=== PATIENT | female | born 1955 | race Caucasian/White ===

== ENCOUNTER 2017-03-29 03:11 | Inpatient (IN) | payer MEDICARE, MEDICAID ==
[~2017-03-29] VITALS: Ht 160 cm; Wt 53.1 kg
[2017-03-29] VITALS (7 sets, daily range): BP systolic 90–114; BP diastolic 53–58
[2017-03-29 03:40] LABS: BASO % 0 % (0-3); EOS % 0 % (0-3); HEMOGLOBIN 12.5 g/dL (12.0-15.5); LYMPH # 0.9 x10^3/uL (1.0-4.8); LYMPH % 5 % (24-48); MEAN CORPUSCULAR HEMOGLOBIN 29 pg (25-35); MEAN CORPUSCULAR HGB CONC 32 g/dL (31-37); MEAN CORPUSCULAR VOLUME 91 fL (79-100); MONO % 5 % (0-9); NEUT % 90 % (31-73); PLATELET COUNT 285 x10^3/uL (140-400); RED CELL DISTRIBUTION WIDTH 13.3 % (11.5-14.5)
--- NOTE | 2017-03-29 03:40 | PHYS DOC ---
Adult General Chief Complaint Chief Complaint: UPPER EXTREMITY PAIN HPI HPI Patient is a 61 year old female who presents with complaint of left-sided pain. Patient states her symptoms started last evening and progressively worsened through the night. Patient awoke with severe pain and difficulty breathing. Patient called EMS who arrived at the patient's residence and treated the patient initially with intranasal fentanyl which she stated reduced her pain. Patient denies productive cough. Patient denies any injury to the affected area. Patient states her pain extends from her left shoulder along the left side of her chest down towards her left hip. Patient currently rates her pain as 7 out of 10. Patient has history of COPD and is dependent on supplemental oxygen which she runs at 3 L/m per nasal cannula. Patient has had nausea. Patient states that her pain worsens when she takes deep breath and when she moves her left upper extremity. Review of Systems Review of Systems Constitutional: Fever, chills [] Eyes: Denies change in visual acuity, redness, or eye pain [] HENT: Denies nasal congestion or sore throat [] Respiratory: Shortness of breath [] Cardiovascular: Chest pain [] GI: Nausea, denies abdominal pain, bloody stools or diarrhea [] : Denies dysuria or hematuria [] Musculoskeletal: Denies back pain or joint pain [] Integument: Denies rash or skin lesions [] Neurologic: Denies headache, focal weakness or sensory changes [] Endocrine: Denies polyuria or polydipsia [] Current Medications Current Medications Current Medications Medications (Trade) Dose Ordered Sig/Valeria Start Time Stop Time Status Last Admin Dose Admin Fentanyl Citrate (Fentanyl 2ml Vial) 50 mcg PRN Q15MIN PRN 03/29/17 03:45 03/30/17 03:44 03/29/17 04:31 50 MCG Ondansetron HCl (Zofran) 4 mg 1X ONCE 03/29/17 03:45 03/29/17 03:46 DC 03/29/17 03:56 4 MG Sodium Chloride 1,000 ml @ 675 mls/hr Q1H29M 03/29/17 03:45 03/29/17 05:44 03/29/17 03:54 675 MLS/HR Allergies Allergies Allergies Coded Allergies Type Severity Reaction Last Updated Verified No Known Drug Allergies 03/29/17 No Physical Exam Physical Exam Constitutional: Alert, febrile, appears ill. [] HENT: Normocephalic, atraumatic, bilateral external ears normal, oropharynx dry , no oral exudates, nose normal. [] Eyes: PERRLA, EOMI, conjunctiva normal, no discharge. [] Neck: Normal range of motion, no tenderness, supple, no stridor. [] Cardiovascular: Tachycardia, regular rhythm, no murmur [] Lungs & Thorax: Mildly restricted air movement bilaterally, no wheezes, no rales [] Abdomen: Bowel sounds normal, soft, no tenderness, no masses, no pulsatile masses. [] Skin: Warm, dry, no erythema, no rash. [] Back: No tenderness, no CVA tenderness. [] Extremities: No tenderness, no cyanosis, no clubbing, ROM intact, no edema. [] Neurologic: Alert and oriented X 3, normal motor function, normal sensory function, no focal deficits noted. [] Current Patient Data Vital Signs Vital Signs Date Time Temp Pulse Resp B/P (MAP) Pulse Ox O2 Delivery O2 Flow Rate FiO2 03/29/17 04:00 16 94 Nasal Cannula 2.0 03/29/17 03:22 100.6 100 98/54 (69) 100.6 Lab Values Laboratory Tests Test 03/29/17 03:28 White Blood Count 18.0 x10^3/uL (4.0-11.0) H Red Blood Count 4.30 x10^6/uL (3.50-5.40) Hemoglobin 12.5 g/dL (12.0-15.5) Hematocrit 39.0 % (36.0-47.0) Mean Corpuscular Volume 91 fL (79-100) Mean Corpuscular Hemoglobin 29 pg (25-35) Mean Corpuscular Hemoglobin Concent 32 g/dL (31-37) Red Cell Distribution Width 13.3 % (11.5-14.5) Platelet Count 285 x10^3/uL (140-400) Neutrophils (%) (Auto) 90 % (31-73) H Lymphocytes (%) (Auto) 5 % (24-48) L Monocytes (%) (Auto) 5 % (0-9) Eosinophils (%) (Auto) 0 % (0-3) Basophils (%) (Auto) 0 % (0-3) Neutrophils # (Auto) 16.1 x10^3uL (1.8-7.7) H Lymphocytes # (Auto) 0.9 x10^3/uL (1.0-4.8) L Monocytes # (Auto) 0.8 x10^3/uL (0.0-1.1) Eosinophils # (Auto) 0.1 x10^3/uL (0.0-0.7) Basophils # (Auto) 0.0 x10^3/uL (0.0-0.2) Platelet Estimate Pending Sodium Level 141 mmol/L (136-145) Potassium Level 4.2 mmol/L (3.5-5.1) Chloride Level 103 mmol/L (98-107) Carbon Dioxide Level 27 mmol/L (21-32) Anion Gap 11 (6-14) Blood Urea Nitrogen 13 mg/dL (7-20) Creatinine 0.6 mg/dL (0.6-1.0) Estimated GFR (Cockcroft-Gault) 102.3 BUN/Creatinine Ratio 22 (6-20) H Glucose Level 143 mg/dL (70-99) H Lactic Acid Level 1.2 mmol/L (0.4-2.0) Calcium Level 8.7 mg/dL (8.5-10.1) Total Bilirubin 0.6 mg/dL (0.2-1.0) Aspartate Amino Transferase (AST) 20 U/L (15-37) Alanine Aminotransferase (ALT) 20 U/L (14-59) Alkaline Phosphatase 56 U/L (46-116) Creatine Kinase 69 U/L (26-192) Creatine Kinase MB (Mass) 0.6 ng/mL (0.0-3.6) Creatine Kinase MB Relative Index 0.9 % (0-4) Troponin I Quantitative < 0.017 ng/mL (0.000-0.055) Total Protein 6.6 g/dL (6.4-8.2) Albumin 3.3 g/dL (3.4-5.0) L Albumin/Globulin Ratio 1.0 (1.0-1.7) Laboratory Tests 03/29/17 03:28 Laboratory Tests 03/29/17 03:28 EKG EKG Interpreted by me: Heart rate 108, sinus tachycardia, normal intervals, normal axis, no acute ST/T-wave abnormalities present [] Radiology/Procedures Radiology/Procedures One view AP chest x-ray interpreted by me: Left lower lobe consolidation, left lower lobe infiltrate, no effusions [] Course & Med Decision Making Course & Med Decision Making Pertinent Labs and Imaging studies reviewed. (See chart for details) Patient's chest x-ray showed findings consistent with acute pneumonia. The patient is febrile with tachycardia, thus patient meets diagnosis of early sepsis. Patient started on IV fluids. Patient also started on IV Levaquin. Patient will require admission to the hospital for further treatment. Patient admitted to Dr. Ashraf. Faviola Disclaimer Faviola Disclaimer This electronic medical record was generated, in whole or in part, using a voice recognition dictation system. Departure Departure Impression: Primary Impression: Community acquired pneumonia Additional Impressions: Sepsis COPD (chronic obstructive pulmonary disease) Disposition: ADMITTED INPATIENT Admitting Physician: Chris Ashraf Condition: GUARDED Referrals: NO PCP (PCP) Problem Qualifiers Additional Impressions: Sepsis Sepsis type: sepsis due to unspecified organism Qualified Codes: A41.9 - Sepsis, unspecified organism COPD (chronic obstructive pulmonary disease) COPD type: COPD with acute exacerbation Qualified Codes: J44.1 - Chronic obstructive pulmonary disease with (acute) exacerbation SANJAY JEAN MD March 29, 2017 03:40
[2017-03-29] MEDS ORDERED: ONDANSETRON PF 4 MG/2 ML VIAL. IV ONE (03:45)
[2017-03-29] MEDS: IV NORMAL SALINE 1000ML BAG 1,000 ML IV SCH ×4 (03:54→14:54)
[2017-03-29 03:59] LABS: CALCIUM 8.7 mg/dL (8.5-10.1); CREATININE 0.6 mg/dL (0.6-1.0); GFR 102.3; POTASSIUM 4.2 mmol/L (3.5-5.1)
[2017-03-29] MEDS: fentaNYL PF VIAL 100 MCG/2 ML VIAL IV PRN ×4 (04:00→11:22)
[2017-03-29 04:05] LABS: ALBUMIN 3.3 g/dL (3.4-5.0); TOTAL BILIRUBIN 0.6 mg/dL (0.2-1.0); TOTAL PROTEIN 6.6 g/dL (6.4-8.2)
[2017-03-29 04:11] LABS: CKMB MASS 0.6 ng/mL (0.0-3.6)
[2017-03-29 04:40] LABS: % EOS 1 % (0-5); PLT ESTIMATE ADEQUATE (ADEQUATE)
[2017-03-29] MEDS ORDERED: ACETAMINOPHEN 325 MG TABLET. PO PRN (04:45)
[2017-03-29] MEDS ORDERED: ONDANSETRON PF 4 MG/2 ML VIAL. IV PRN ×2 (05:00→09:15)
[2017-03-29] MEDS ORDERED: levOFLOXacin PER PHARMACY. MC PRN (05:00)
[2017-03-29] MEDS ORDERED: ALPR0.5T6 PO (06:30)
[2017-03-29] MEDS ORDERED: UMEC62.5 IH (06:30)
[2017-03-29] MEDS ORDERED: FLUT1DIS5 IH (06:30)
[2017-03-29] MEDS ORDERED: IPRA4AER IH (06:30)
[2017-03-29] MEDS ORDERED: ASPI-482 PO (06:30)
[2017-03-29] MEDS ORDERED: ALEN70TA3 PO (06:30)
--- NOTE | 2017-03-29 06:32 | EKG ---
[facility] [address] [place] [address] Test Date: 2017-03-29 Test Time: 03:20:43 Pat Name: SMITH LOBO Department: Room: 248 1 Gender: F Vulcanizer: : 1955 Requested By: SANJAY JEAN Order Number: [id number] Reading MD: Chris Prado Measurements Intervals [place] Rate: 108 P: 92 OK: 182 QRS: 89 QRSD: 86 T: 63 QT: 310 QTc: 419 Interpretive Statements SINUS TACHYCARDIA ATRIAL PREMATURE COMPLEX(ES) Electronically Signed On 04-04-2017 13:27:19 CDT by Chris Prado
--- NOTE | 2017-03-29 07:12 | RAD ---
Portable chest, 03/29/2017: History: Left-sided shoulder pain No previous chest radiographs are available at this time for comparison purposes. The heart is not enlarged. Attenuation of the upper lobe pulmonary vessels suggests emphysema. There are scattered parenchymal scars. There are streaky parenchymal opacities projected over the right mid to upper chest suggesting parenchymal scarring versus pleural or chest wall calcifications. There is blunting of the left lateral costophrenic angle with prominent left basilar pulmonary markings. No right-sided pleural fluid is seen. IMPRESSION: 1. Emphysema with pleural/parenchymal scarring. 2. Blunting of the left lateral costophrenic angle suggesting a small amount of pleural fluid versus scarring with mild underlying left basilar parenchymal infiltrate or scarring.
[2017-03-29] MEDS ORDERED: IPRATRPIUM/ALBUTEROL 0.5/2.5MG 3 ML NEBU. NEB SCH (08:00)
[2017-03-29] MEDS ORDERED: IPRA0.2S5 NEB (08:43)
[2017-03-29] MEDS ORDERED: VENTOLIN HFA18 GM INH (08:43)
[2017-03-29] MEDS ORDERED: VERA240C2 PO (08:43)
--- NOTE | 2017-03-29 09:09 | PDOC1 ---
History and Physical Current Problem List Problem List Problems Medical Problems: (1) Community acquired pneumonia Status: Acute (2) COPD (chronic obstructive pulmonary disease) Status: Acute (3) Sepsis Status: Acute Current Medications Current Medications Current Medications Medications (Trade) Dose Ordered Sig/Valeria Start Time Stop Time Status Last Admin Dose Admin Acetaminophen (Tylenol) 650 mg PRN Q4HRS PRN 03/29/17 04:45 03/30/17 04:44 Albuterol/ Ipratropium (Duoneb) 3 ml RTQID 03/29/17 08:00 03/30/17 07:59 03/29/17 08:19 3 ML Fentanyl Citrate (Fentanyl 2ml Vial) 50 mcg PRN Q2HR PRN 03/29/17 05:00 03/30/17 04:59 03/29/17 08:07 50 MCG Iohexol (Omnipaque 240 Mg/ml) 50 ml 1X ONCE 03/29/17 09:15 03/29/17 09:16 UNV Iohexol (Omnipaque 300 Mg/ml) 75 ml 1X ONCE 03/29/17 09:15 03/29/17 09:16 UNV Levofloxacin/ Dextrose 100 ml @ 100 mls/hr Q24H 03/29/17 05:00 03/29/17 05:34 100 MLS/HR Levofloxacin/ Dextrose (Levaquin Per Pharmacy) 1 each PRN DAILY PRN 03/29/17 05:00 Ondansetron HCl (Zofran) 4 mg PRN Q8HRS PRN 03/29/17 05:00 03/30/17 04:59 Sodium Chloride 1,000 ml @ 125 mls/hr Q8H 03/29/17 05:00 03/30/17 04:59 03/29/17 05:35 125 MLS/HR Allergies Allergies Allergies Coded Allergies Type Severity Reaction Last Updated Verified No Known Drug Allergies 03/29/17 No ROS Review of System CONSTITUTIONAL: No fever or chills EYES: No recent changes SKIN: No rash or itching CARDIOVASCULAR: No chest pain, syncope, palpitations, or edema RESPIRATORY: No SOB or cough but chest pain, worse with breathing. GASTROINTESTINAL: No nausea, vomiting or but abdominal pain, vague NEUROLOGICAL: No headaches or weakness ENDOCRINE: No cold or heat intolerance GENITOURINARY: No urgency or frequency of urination MUSCULOSKELETAL: No back pain or joint pain LYMPHATICS: No enlarged lymph nodes PSYCHIATRIC: anxiety or no depression Physical Exam Physical Exam GEN.: No apparent distress. Alert and oriented. , thin built HEENT: Head is normocephalic, atraumatic NECK: Supple. LUNGS: decreased BS Bilateral HEART: RRR, S1, S2 present. Peripheral pulses intact ABDOMEN: Soft, nontender. Positive bowel sounds. EXTREMITIES: Without any cyanosis. NEUROLOGIC: Normal speech, normal tone PSYCHIATRIC: Normal affect, normal mood. SKIN: dry. Vitals Vitals Vital Signs Date Time Temp Pulse Resp B/P (MAP) Pulse Ox O2 Delivery O2 Flow Rate FiO2 03/29/17 08:22 95 Nasal Cannula 2.0 03/29/17 07:30 99.6 101 20 90/56 (67) 99.6 Labs Labs Laboratory Tests Test 03/29/17 03:28 03/29/17 05:36 White Blood Count 18.0 x10^3/uL (4.0-11.0) Red Blood Count 4.30 x10^6/uL (3.50-5.40) Hemoglobin 12.5 g/dL (12.0-15.5) Hematocrit 39.0 % (36.0-47.0) Mean Corpuscular Volume 91 fL (79-100) Mean Corpuscular Hemoglobin 29 pg (25-35) Mean Corpuscular Hemoglobin Concent 32 g/dL (31-37) Red Cell Distribution Width 13.3 % (11.5-14.5) Platelet Count 285 x10^3/uL (140-400) Neutrophils (%) (Auto) 90 % (31-73) Lymphocytes (%) (Auto) 5 % (24-48) Monocytes (%) (Auto) 5 % (0-9) Eosinophils (%) (Auto) 0 % (0-3) Basophils (%) (Auto) 0 % (0-3) Neutrophils # (Auto) 16.1 x10^3uL (1.8-7.7) Lymphocytes # (Auto) 0.9 x10^3/uL (1.0-4.8) Monocytes # (Auto) 0.8 x10^3/uL (0.0-1.1) Eosinophils # (Auto) 0.1 x10^3/uL (0.0-0.7) Basophils # (Auto) 0.0 x10^3/uL (0.0-0.2) Segmented Neutrophils % 89 % (35-66) Band Neutrophils % 1 % (0-9) Lymphocytes % 6 % (24-48) Monocytes % 3 % (0-10) Eosinophils % 1 % (0-5) Platelet Estimate Adequate (ADEQUATE) Sodium Level 141 mmol/L (136-145) Potassium Level 4.2 mmol/L (3.5-5.1) Chloride Level 103 mmol/L (98-107) Carbon Dioxide Level 27 mmol/L (21-32) Anion Gap 11 (6-14) Blood Urea Nitrogen 13 mg/dL (7-20) Creatinine 0.6 mg/dL (0.6-1.0) Estimated GFR (Cockcroft-Gault) 102.3 BUN/Creatinine Ratio 22 (6-20) Glucose Level 143 mg/dL (70-99) Lactic Acid Level 1.2 mmol/L (0.4-2.0) 1.4 mmol/L (0.4-2.0) Calcium Level 8.7 mg/dL (8.5-10.1) Total Bilirubin 0.6 mg/dL (0.2-1.0) Aspartate Amino Transf (AST/SGOT) 20 U/L (15-37) Alanine Aminotransferase (ALT/SGPT) 20 U/L (14-59) Alkaline Phosphatase 56 U/L (46-116) Creatine Kinase 69 U/L (26-192) Creatine Kinase MB (Mass) 0.6 ng/mL (0.0-3.6) Creatine Kinase MB Relative Index 0.9 % (0-4) Troponin I Quantitative < 0.017 ng/mL (0.000-0.055) Total Protein 6.6 g/dL (6.4-8.2) Albumin 3.3 g/dL (3.4-5.0) Albumin/Globulin Ratio 1.0 (1.0-1.7) Laboratory Tests Test 03/29/17 03:28 03/29/17 05:36 White Blood Count 18.0 x10^3/uL (4.0-11.0) Red Blood Count 4.30 x10^6/uL (3.50-5.40) Hemoglobin 12.5 g/dL (12.0-15.5) Hematocrit 39.0 % (36.0-47.0) Mean Corpuscular Volume 91 fL (79-100) Mean Corpuscular Hemoglobin 29 pg (25-35) Mean Corpuscular Hemoglobin Concent 32 g/dL (31-37) Red Cell Distribution Width 13.3 % (11.5-14.5) Platelet Count 285 x10^3/uL (140-400) Neutrophils (%) (Auto) 90 % (31-73) Lymphocytes (%) (Auto) 5 % (24-48) Monocytes (%) (Auto) 5 % (0-9) Eosinophils (%) (Auto) 0 % (0-3) Basophils (%) (Auto) 0 % (0-3) Neutrophils # (Auto) 16.1 x10^3uL (1.8-7.7) Lymphocytes # (Auto) 0.9 x10^3/uL (1.0-4.8) Monocytes # (Auto) 0.8 x10^3/uL (0.0-1.1) Eosinophils # (Auto) 0.1 x10^3/uL (0.0-0.7) Basophils # (Auto) 0.0 x10^3/uL (0.0-0.2) Segmented Neutrophils % 89 % (35-66) Band Neutrophils % 1 % (0-9) Lymphocytes % 6 % (24-48) Monocytes % 3 % (0-10) Eosinophils % 1 % (0-5) Platelet Estimate Adequate (ADEQUATE) Sodium Level 141 mmol/L (136-145) Potassium Level 4.2 mmol/L (3.5-5.1) Chloride Level 103 mmol/L (98-107) Carbon Dioxide Level 27 mmol/L (21-32) Anion Gap 11 (6-14) Blood Urea Nitrogen 13 mg/dL (7-20) Creatinine 0.6 mg/dL (0.6-1.0) Estimated GFR (Cockcroft-Gault) 102.3 BUN/Creatinine Ratio 22 (6-20) Glucose Level 143 mg/dL (70-99) Lactic Acid Level 1.2 mmol/L (0.4-2.0) 1.4 mmol/L (0.4-2.0) Calcium Level 8.7 mg/dL (8.5-10.1) Total Bilirubin 0.6 mg/dL (0.2-1.0) Aspartate Amino Transf (AST/SGOT) 20 U/L (15-37) Alanine Aminotransferase (ALT/SGPT) 20 U/L (14-59) Alkaline Phosphatase 56 U/L (46-116) Creatine Kinase 69 U/L (26-192) Creatine Kinase MB (Mass) 0.6 ng/mL (0.0-3.6) Creatine Kinase MB Relative Index 0.9 % (0-4) Troponin I Quantitative < 0.017 ng/mL (0.000-0.055) Total Protein 6.6 g/dL (6.4-8.2) Albumin 3.3 g/dL (3.4-5.0) Albumin/Globulin Ratio 1.0 (1.0-1.7) VTE Prophylaxis Ordered VTE Prophylaxis Devices: No VTE Pharmacological Prophylaxi: No LARY COTA MD March 29, 2017 09:09
[2017-03-29] MEDS ORDERED: IOHEXOL 300 MG/ML 75 ML VIAL IV ONE (09:15)
[2017-03-29] MEDS ORDERED: IOHEXOL 240 MG/ML 50ML VIAL. PO ONE (09:15)
[2017-03-29] MEDS ORDERED: ALBUTEROL SULFATE 2.5 MG/3 ML NEBU. NEB PRN (09:15)
[2017-03-29] MEDS ORDERED: hydrALAZINE 20 MG/ML VIAL. IVP PRN (09:15)
[2017-03-29] MEDS ORDERED: CONTRAST GIVEN MC PRN (09:15)
--- NOTE | 2017-03-29 10:21 | ACF ---
Admit Criteria Forms Admit Criteria Forms Admit Criteria Forms PNEUMONIA, COMMUNITY ACQUIRED Clinical Indications for Admission to Inpatient Care ( Place 'X' for any and all applicable criteria): Admission is indicated for ANY ONE of the following (1)(2)(3): [ ]I. Hypoxemia indicated by ANY ONE of the following: [ ]a) Oxygen saturation less than 90% while breathing room air [ ]b) PO2 less than 60 mm Hg (8.0 kPa) while breathing room air [ ]c) Chronic lung disease with significant deterioration from baseline oxygenation [x ]II. Appropriate diagnostic testing and treatment unavailable in outpatient or recovery facility (eg,testing or infection control measures unavailable(10) [ ]III. Moderate-risk or high-risk category patients (Pneumonia Severity Index (PSI) class IV or V, or CURB-65 score of 3 or greater). [ ]IV. Outpatient treatment failure as indicated by ANY ONE of the following(9) : [ ]a) Failure to respond to antibiotic (eg, resistant organism) [ ]b) Clinically significant adverse effects from medication (eg, vomiting) [ ]c) Complications of pneumonia (eg, empyema, bacteremia) [ ]d) Significant worsening of comorbid cond necessitating inpatient care (eg, chronic heart failure) [ ]V. Intermediate-risk category patients (eg, PSI class III or CURB-65 score 2) who do not improve with initial therapy and observation. [ ]. Immunocompromised patients (eg, AIDS, chronic steroid use) at moderate or high risk based on clinical evaluation. [ ]VII. Complicated pleural effusions (eg, exudative, loculated) [ ]VIII.Hemodynamic instability [ ] IX. Altered mental status that is severe or persistent. [ ]X. Dehydration that is severe or persistent. [ ]XI. Bacteremia [ ]XII. Respiratory finding (eg. tachypnea) that do not respond to outpatient or observation care treatment Extended stay beyond goal length of stay may be needed for (20) [ ]a) Unclear diagnosis [ ]b) Pleural disease [ ]c) Severe pneumonia or treatment failure (25 [ ]d) Respiratory failure (anticipate invasive or noninvasive ventilatory support) [ ]e) Abnormal serum electrolytes (serum Na concentration less than 135 mEq/L (mmol/L) (32)(33) [ ]f) Clinically significant comorbid illness (eg, heart failure, atrial fibrillation with rapid heart rate, alcohol withdrawal, renal insufficiency)(34)(35) [ ]g) Comorbid acute exacerbation of COPD(36) [ ]h) Concomitant diagnosis of malignancy that may be associated with malnutrition, immunologic impairment, or bronchial obstruction. [ ]i) Concomitant altered mental status [ ]j) Culture-identified Gram-negative or antibiotic-resistant organism (eg, Pseudomonas, methicillin-resistant Staphylococcus aureus)(30) [ ]k) Healthcare-associated pneumonia The original [facility] content created by [facility] app has been revised. The portions of the content which have been revised are identified through the use of italic text or in bold, and [employer] has neither reviewed nor approved the modified material. All other unmodified content is copyright [facility] [employer]. Please see references footnoted in the original [facility] edition 2016 CANDE SESAY March 29, 2017 10:21
[2017-03-29] MEDS ORDERED: IPRATRPIUM/ALBUTEROL 0.5/2.5MG 3 ML NEBU. NEB PRN (10:30)
--- NOTE | 2017-03-29 10:41 | PDOC2 ---
GI CONSULT Reason For Consult: Abd pain HPI: HPI: 61 y/o female who reports left-sided pain from her shoulder down her side to her hip began yesterday w/o precipitating events. Associated w/ worsening SOA. Brought to ER via EMS and admitted w/ CAP and early sepsis. Since yesterday, pain has moved to her abdomen - across the middle, maybe worse on left side. Constant, but worse w/ breathing. Never had pain like this before. Some nausea and dry-heaves. Denies heartburn/reflux, dysphagia, diarrhea, constipation, melena, hematochezia. Has lost ~5 pounds w/ decreased appetite recently. Takes ASA QD and did try Advil at her grandson's high school graduation last night. No previous EGD or colonoscopy. Tmax 100.6. Received breathing treatment, started on IV steroids and atbx. CT chest and abd ordered. Cardiology and pulmonology consults pending. PMH: PMH: HTN, COPD on home O2, anxiety, osteopenia, ?pneumothorax FH: Family History: No pertinent hx (denies GI cancers) Social History: Smoke: Quit ALCOHOL: none Drugs: None ROS: GEN: Denies fevers, chills, sweats HEENT: Denies blurred vision, sore throat CV: Denies chest pain RESP: +SOA GI: Per HPI : Denies hematuria, dysuria ENDO: +weight loss NEURO: Denies confusion, dizziness MSK: Denies weakness, joint pain/swelling SKIN: Denies jaundice, pruritus Vitals: Vitals: Vital Signs Date Time Temp Pulse Resp B/P (MAP) Pulse Ox O2 Delivery O2 Flow Rate FiO2 03/29/17 10:01 107 18 114/57 (76) 94 Nasal Cannula 2.0 03/29/17 07:30 99.6 99.6 Labs: Labs: Laboratory Tests Test 03/29/17 03:28 03/29/17 05:36 White Blood Count 18.0 x10^3/uL (4.0-11.0) Red Blood Count 4.30 x10^6/uL (3.50-5.40) Hemoglobin 12.5 g/dL (12.0-15.5) Hematocrit 39.0 % (36.0-47.0) Mean Corpuscular Volume 91 fL (79-100) Mean Corpuscular Hemoglobin 29 pg (25-35) Mean Corpuscular Hemoglobin Concent 32 g/dL (31-37) Red Cell Distribution Width 13.3 % (11.5-14.5) Platelet Count 285 x10^3/uL (140-400) Neutrophils (%) (Auto) 90 % (31-73) Lymphocytes (%) (Auto) 5 % (24-48) Monocytes (%) (Auto) 5 % (0-9) Eosinophils (%) (Auto) 0 % (0-3) Basophils (%) (Auto) 0 % (0-3) Neutrophils # (Auto) 16.1 x10^3uL (1.8-7.7) Lymphocytes # (Auto) 0.9 x10^3/uL (1.0-4.8) Monocytes # (Auto) 0.8 x10^3/uL (0.0-1.1) Eosinophils # (Auto) 0.1 x10^3/uL (0.0-0.7) Basophils # (Auto) 0.0 x10^3/uL (0.0-0.2) Segmented Neutrophils % 89 % (35-66) Band Neutrophils % 1 % (0-9) Lymphocytes % 6 % (24-48) Monocytes % 3 % (0-10) Eosinophils % 1 % (0-5) Platelet Estimate Adequate (ADEQUATE) D-Dimer (Renea) 0.51 ug/mlFEU (0.00-0.50) Sodium Level 141 mmol/L (136-145) Potassium Level 4.2 mmol/L (3.5-5.1) Chloride Level 103 mmol/L (98-107) Carbon Dioxide Level 27 mmol/L (21-32) Anion Gap 11 (6-14) Blood Urea Nitrogen 13 mg/dL (7-20) Creatinine 0.6 mg/dL (0.6-1.0) Estimated GFR (Cockcroft-Gault) 102.3 BUN/Creatinine Ratio 22 (6-20) Glucose Level 143 mg/dL (70-99) Lactic Acid Level 1.2 mmol/L (0.4-2.0) 1.4 mmol/L (0.4-2.0) Calcium Level 8.7 mg/dL (8.5-10.1) Total Bilirubin 0.6 mg/dL (0.2-1.0) Aspartate Amino Transf (AST/SGOT) 20 U/L (15-37) Alanine Aminotransferase (ALT/SGPT) 20 U/L (14-59) Alkaline Phosphatase 56 U/L (46-116) Creatine Kinase 69 U/L (26-192) Creatine Kinase MB (Mass) 0.6 ng/mL (0.0-3.6) Creatine Kinase MB Relative Index 0.9 % (0-4) Troponin I Quantitative < 0.017 ng/mL (0.000-0.055) Total Protein 6.6 g/dL (6.4-8.2) Albumin 3.3 g/dL (3.4-5.0) Albumin/Globulin Ratio 1.0 (1.0-1.7) Allergies: Coded Allergies: No Known Drug Allergies (Unverified , 03/29/17) Medications: Current Medications Medications (Trade) Dose Ordered Sig/Valeria Route PRN Reason Start Time Stop Time Status Last Admin Dose Admin Sodium Chloride 1,000 ml @ 675 mls/hr Q1H29M IV 03/29/17 03:45 03/29/17 05:44 DC 03/29/17 05:35 Fentanyl Citrate (Fentanyl 2ml Vial) 50 mcg PRN Q15MIN PRN IV PAIN GREATER THAN 3/10 03/29/17 03:45 03/30/17 03:44 03/29/17 04:31 Ondansetron HCl (Zofran) 4 mg 1X ONCE IV 03/29/17 03:45 03/29/17 03:46 DC 03/29/17 03:56 Fentanyl Citrate (Fentanyl 2ml Vial) 50 mcg PRN Q2HR PRN IV PAIN 03/29/17 05:00 03/30/17 04:59 03/29/17 08:07 Sodium Chloride 1,000 ml @ 125 mls/hr Q8H IV 03/29/17 05:00 03/30/17 04:59 03/29/17 05:35 Albuterol/ Ipratropium (Duoneb) 3 ml RTQID NEB 03/29/17 08:00 03/29/17 10:27 DC 03/29/17 08:19 Levofloxacin/ Dextrose 100 ml @ 100 mls/hr Q24H IV 03/29/17 05:00 03/29/17 05:34 Imaging: Imaging: CXR IMPRESSION: 1. Emphysema with pleural/parenchymal scarring. 2. Blunting of the left lateral costophrenic angle suggesting a small amount of pleural fluid versus scarring with mild underlying left basilar parenchymal infiltrate or scarring. PE: GEN: sitting on edge of bed, leaning forward, thin, looks uncomfortable HEENT: atraumatic LUNGS: tight/poor airflow, tachypneic HEART: tachycardic ABD: BS+, no increase in pain when abd palpated, soft EXTREMITY: no edema SKIN: no jaundice NEURO/PSYCH: A & O 3 A/P: A/P: Abd pain, nausea, retching -pain began w/ increased SOA yesterday, originally from left shoulder down axilla to left hip, now across abdomen -constant but worse w/ breathing Decreased appetite, weight loss SOA, h/o COPD on home O2 -D-dimer 0.51 CAP, fever, tachycardia CRC screen -no previous colonoscopy -- Await CT. Pulm and cardiology to see. Will review w/ Dr. Mantilla. LEANNA AYERS March 29, 2017 10:41
--- NOTE | 2017-03-29 11:00 | PDOC2 ---
HUNTER YODER DOG BARBER 03/29/17 1100: CARDIAC CONSULT DATE OF CONSULT Date of Consult DATE: 03/29/17 TIME: 10:52 REASON FOR CONSULT Reason for Consult: Chest pain REFERRING PHYSICIAN Referring Physician: Mechelle SOURCE Source: Chart review, Patient HISTORY OF PRESENT ILLNESS HISTORY OF PRESENT ILLNESS This is a 61 yo female admitted for complains of left sided chest pain and upper abdominal pain and SOA. Reports that yesterday while attending graduation she started having this sharp left rib cage pain that started under her left axilla the got isolated to her upper abdomen. Reports that she eventually went to sleep and woke up with only upper abdominal pain sharp in consistency and was nauseated. She also felt chills. In the last few weeks she also felt she is also a little more SOA and her tolerance with her activity has decreased compared to her baseline. Also complains of anorexia. Denies any palpitations, VTE, CAD in the past. She did have pneumonia a yr ago and has COPD utilizing 2LPM continuous at home. To add her abdominal pain is exacerbated by deep breathing and laying flat. More comfortable position is left side lying in position. No recent falls or any injury. Denies any PUD , hematemesis, black stools. PAST MEDICAL HISTORY Cardiovascular: HTN Pulmonary: COPD, Pneumonia, Other (pneumothorax) CENTRAL NERVOUS SYSTEM: Other (No pertinent history) GI: No pertinent hx Heme/Onc: No pertinent hx Hepatobiliary: No pertinent hx Psych: Anxiety Musculoskeletal: Osteoarthritis Rheumatologic: No pertinent hx Infectious disease: No pertinent hx Renal/: No pertinent hx Endocrine: Osteoporosis Dermatology: No pertinent hx PAST SURGICAL HISTORY Past Surgical History: Cataract Removal, Other (chest tube placement 2002) FAMILY HISTORY Family History: Coronary Artery Disease (father) SOCIAL HISTORY Smoke: No (quit 2 yrs ago 40 pk yr) ALCOHOL: none Drugs: None Lives: Alone CURRENT MEDICATIONS CURRENT MEDICATIONS Current Medications Medications (Trade) Dose Ordered Sig/Valeria Route PRN Reason Start Time Stop Time Status Last Admin Dose Admin Sodium Chloride 1,000 ml @ 675 mls/hr Q1H29M IV 03/29/17 03:45 03/29/17 05:44 DC 03/29/17 05:35 Fentanyl Citrate (Fentanyl 2ml Vial) 50 mcg PRN Q15MIN PRN IV PAIN GREATER THAN 3/10 03/29/17 03:45 03/30/17 03:44 03/29/17 04:31 Ondansetron HCl (Zofran) 4 mg 1X ONCE IV 03/29/17 03:45 03/29/17 03:46 DC 03/29/17 03:56 Fentanyl Citrate (Fentanyl 2ml Vial) 50 mcg PRN Q2HR PRN IV PAIN 03/29/17 05:00 03/30/17 04:59 03/29/17 08:07 Sodium Chloride 1,000 ml @ 125 mls/hr Q8H IV 03/29/17 05:00 03/30/17 04:59 03/29/17 05:35 Albuterol/ Ipratropium (Duoneb) 3 ml RTQID NEB 03/29/17 08:00 03/29/17 10:27 DC 03/29/17 08:19 Levofloxacin/ Dextrose 100 ml @ 100 mls/hr Q24H IV 03/29/17 05:00 03/29/17 05:34 Iohexol (Omnipaque 240 Mg/ml) 50 ml 1X ONCE PO 03/29/17 09:15 03/29/17 09:16 DC 03/29/17 09:15 Iohexol (Omnipaque 300 Mg/ml) 75 ml 1X ONCE IV 03/29/17 09:15 03/29/17 09:16 DC 03/29/17 09:15 ALLERGIES ALLERGIES: Coded Allergies: No Known Drug Allergies (Unverified , 03/29/17) ROS Review of System 14 point ROS evaluated with pertinent positives noted per HPI PHYSICAL EXAM General: Alert, Oriented X3, Cooperative, moderate distress HEENT: Atraumatic, Mucous membr. moist/pink Lungs: Other (diminished) Heart: Regular rate (SR), Normal S1, Normal S2, Other (distant heart sounds) Abdomen: Other (firm abdomen with tenderness upon palpation) Skin: No breakdown, No significant lesion Neuro: Normal speech, Sensation intact Psych/Mental Status: Other (in position) MUSCULOSKELETAL: Osteoarthritic changes both hands VITALS VITALS Vital Signs Date Time Temp Pulse Resp B/P (MAP) Pulse Ox O2 Delivery O2 Flow Rate FiO2 03/29/17 10:01 107 18 114/57 (76) 94 Nasal Cannula 2.0 03/29/17 07:30 99.6 99.6 LABS Lab: Laboratory Tests Test 03/29/17 03:28 03/29/17 05:36 White Blood Count 18.0 x10^3/uL (4.0-11.0) Red Blood Count 4.30 x10^6/uL (3.50-5.40) Hemoglobin 12.5 g/dL (12.0-15.5) Hematocrit 39.0 % (36.0-47.0) Mean Corpuscular Volume 91 fL (79-100) Mean Corpuscular Hemoglobin 29 pg (25-35) Mean Corpuscular Hemoglobin Concent 32 g/dL (31-37) Red Cell Distribution Width 13.3 % (11.5-14.5) Platelet Count 285 x10^3/uL (140-400) Neutrophils (%) (Auto) 90 % (31-73) Lymphocytes (%) (Auto) 5 % (24-48) Monocytes (%) (Auto) 5 % (0-9) Eosinophils (%) (Auto) 0 % (0-3) Basophils (%) (Auto) 0 % (0-3) Neutrophils # (Auto) 16.1 x10^3uL (1.8-7.7) Lymphocytes # (Auto) 0.9 x10^3/uL (1.0-4.8) Monocytes # (Auto) 0.8 x10^3/uL (0.0-1.1) Eosinophils # (Auto) 0.1 x10^3/uL (0.0-0.7) Basophils # (Auto) 0.0 x10^3/uL (0.0-0.2) Segmented Neutrophils % 89 % (35-66) Band Neutrophils % 1 % (0-9) Lymphocytes % 6 % (24-48) Monocytes % 3 % (0-10) Eosinophils % 1 % (0-5) Platelet Estimate Adequate (ADEQUATE) D-Dimer (Renea) 0.51 ug/mlFEU (0.00-0.50) Sodium Level 141 mmol/L (136-145) Potassium Level 4.2 mmol/L (3.5-5.1) Chloride Level 103 mmol/L (98-107) Carbon Dioxide Level 27 mmol/L (21-32) Anion Gap 11 (6-14) Blood Urea Nitrogen 13 mg/dL (7-20) Creatinine 0.6 mg/dL (0.6-1.0) Estimated GFR (Cockcroft-Gault) 102.3 BUN/Creatinine Ratio 22 (6-20) Glucose Level 143 mg/dL (70-99) Lactic Acid Level 1.2 mmol/L (0.4-2.0) 1.4 mmol/L (0.4-2.0) Calcium Level 8.7 mg/dL (8.5-10.1) Total Bilirubin 0.6 mg/dL (0.2-1.0) Aspartate Amino Transf (AST/SGOT) 20 U/L (15-37) Alanine Aminotransferase (ALT/SGPT) 20 U/L (14-59) Alkaline Phosphatase 56 U/L (46-116) Creatine Kinase 69 U/L (26-192) Creatine Kinase MB (Mass) 0.6 ng/mL (0.0-3.6) Creatine Kinase MB Relative Index 0.9 % (0-4) Troponin I Quantitative < 0.017 ng/mL (0.000-0.055) Total Protein 6.6 g/dL (6.4-8.2) Albumin 3.3 g/dL (3.4-5.0) Albumin/Globulin Ratio 1.0 (1.0-1.7) ASSESSMENT/PLAN ASSESSMENT/PLAN 1. Abdominal pain: exacerbated during supine and inspiration. Currently in position. 2. CAP 3. Atypical Chest pain: None currently. Mainly abdominal pain. initial troponin normal. EKG SR with RAEGAN no acute changes. Doubt ACS. likely pleuritic with GI component. 4. COPD 5. HTN: on low dose verapamil. controlled. 6. Ventral hernia?: 4 cm diameter soft mass right of midline. Defer to PCP Recommendations 1. Baseline TTE, will note PAP. 2. CT chest/abdomen pending 3. lipase and lipids. 4. Continue on verapamil 5. Follow pulmonary recommendations Problems: MELLISSA GEE MD 03/29/17 1326: CARDIAC CONSULT ALLERGIES ALLERGIES: Coded Allergies: No Known Drug Allergies (Unverified , 03/29/17) ASSESSMENT/PLAN ASSESSMENT/PLAN Patient seen and examined. Agree with ENGINEER STEAM's assessment and plan. Chest pain with atypical features and most probably pleuritic. Myocardial infarction ruled out. Check 2-D echo to assess left ventricle systolic function and rule out wall motion abnormalities. Continue treatment for pneumonia per primary team. Thank you for your consultation. Problems: HUNTER YODER APRN March 29, 2017 11:00 MELLISSA GEE MD March 29, 2017 13:26
--- NOTE | 2017-03-29 11:56 | PDOC ---
Provider Note Provider Note dictated severe CAP BS antibiotic AURORA OLIVER MD March 29, 2017 11:56
[2017-03-29] MEDS ORDERED: PIP/TAZO PER PHARMACY MC PRN (12:00)
[2017-03-29] MEDS ORDERED: IPRATROPIUM BROMIDE 0.5 MG/2.5 ML NEBU. NEB SCH (12:00)
[2017-03-29] MEDS ORDERED: VANCOMYCIN 1.25 GM in IV NORMAL SALINE 250ML 250 ML IV ONE (12:00)
[2017-03-29] MEDS: IPRATRPIUM/ALBUTEROL 0.5/2.5MG 3 ML NEBU. NEB SCH ×3 (12:13→19:08)
[2017-03-29 12:14] LABS: CHOLESTEROL/HDL RATIO 2.8
--- NOTE | 2017-03-29 12:29 | RAD ---
Examination: CT chest and abdomen with IV contrast History: History of abdominal pain, history of right lobectomy Comparison: None available Technique: Axial CT images of the chest and abdomen were performed with IV contrast. Coronal and sagittal reformats were performed. PQRS Compliance Statement: One or more of the following individualized dose reduction techniques were utilized for this examination: 1. Automated exposure control 2. Adjustment of the mA and/or kV according to patient size 3. Use of iterative reconstruction technique Findings: The visualized thyroid gland appears unremarkable. The central airways are patent. The heart size grossly appears unremarkable. Coronary artery calcifications identified. Mildly enlarged appearing pulmonary arteries and its branches probably due to pulmonary artery hypertension. Diffuse emphysematous changes identified in the bilateral lungs. There is a 4 mm nodule identified in the right upper lobe of the lung anteriorly. 2 Calcified pleural based densities identified in the right lower lobe of the lung probably old right hematoma or scarring changes. In the right lower lobe of the lung ,there is a irregular appearing opacity measuring 1.3 cm. There is irregular appearing opacity identified in the left upper lobe of the lung measuring 1 cm extending up to the pleura. Small left pleural effusion identified. There is a large left lung base consolidation changes identified with air bronchograms in the periphery of the lungs likely pneumonia or atelectasis. The visualized liver, spleen, adrenals grossly appears unremarkable. The gallbladder is moderately distended. Mild prominent or minimally dilated appearing common bile duct. The bilateral kidneys enhance symmetrically. Subcentimeter cyst identified in the left kidney. The stomach is mildly distended. The visualized pancreas grossly appears unremarkable. The visualized small bowel is nondilated. There is a moderate amount of stool noted in the partially visualized colon. Moderate aortic atherosclerosis. Mild degenerative changes identified in the visualized thoracolumbar spine. Impression: 1. Irregular opacities identified in the left upper lobe and in the right lower lobe of the lung with the largest measuring 1.3 cm in the right lower lobe of the lung could be neoplasm or scarring or atelectasis. Follow-up PET/CT scan may be useful. A 4 mm nodule identified in the right upper lobe of the lung. Follow-up per Fleischner Society guidelines. 2. Large left lower lobe lung consolidation in the periphery with some air bronchograms probably pneumonia or atelectasis. Small left pleural effusion. 3. Peripherally calcified pleural-based density identified in the right lower lobe of the lung could be chronic hematoma or scarring changes. 4. Bilateral lung emphysematous changes. 5. Coronary artery calcifications. 6. Moderate amount of stool identified in the partially visualized colon probably due to constipation. 7. Moderate distended gallbladder. The common bile duct measures 7.5 mm which is mildly prominent/dilated. Correlate with liver function tests.
--- NOTE | 2017-03-29 12:31 | CONS ---
DATE OF CONSULTATION: 03/29/2017 ATTENDING PHYSICIAN: Dr. Ashraf. REASON FOR CONSULTATION: Left-sided chest pain, abnormal chest x-ray. HISTORY OF PRESENT ILLNESS: The patient is a 61-year-old female who has 40 years of tobacco use. She quit a few years ago. She has oxygen-dependent chronic obstructive airway disease. She presented to the hospital complaining of left upper quadrant pain and also pain in the left lower chest. She did not have any significant cough, but she did have a fever of 100.6. Her chest x-ray revealed infiltrate in the left lower lobe. She underwent imaging studies, and I have just reviewed her CT of chest. It has not been read yet. The patient has extensive pneumonia involving the left lower lobe. The patient also has a focal calcified density in the right lower lobe which is probably from her talc pleurodesis which was performed in the past for pneumothorax. CT abdomen and pelvis is also being done, and I do not have the official report yet. There was no evidence of pulmonary embolism on the CT chest. Consultation is requested for further evaluation and management. She was started on Levaquin. PAST MEDICAL HISTORY: Significant for suspected severe COPD which has been oxygen dependent at 2-3 liters at home. PAST SURGICAL HISTORY: Include right thoracotomy for recurrent pneumothorax, and I assume that she had talc pleurodesis done at that time. 2. Osteopenia. 3. Anxiety disorder. REVIEW OF SYSTEMS: Twelve-point system was obtained. Pertinent positives discussed in my history of present illness, otherwise noncontributory. All systems that were negative were reviewed as well. ALLERGIES: None. CURRENT MEDICATIONS: Reviewed as listed in the [facility]. SOCIAL HISTORY: Smoker for 40 years, 2 packs per day, quit 2 years ago. PHYSICAL EXAMINATION: VITAL SIGNS: T-max of 100.6, blood pressure is stable. Pulse oximetry is 94% on 3 liters, latest blood pressure is 90 systolic. HEENT: Sclerae nonicteric. NECK: Supple. LUNGS: With diminished breath sounds bilaterally. CARDIOVASCULAR: Regular rate and rhythm. ABDOMEN: Soft, minimally tender in the left upper quadrant. EXTREMITIES: With no pitting edema. She has a thoracotomy scar on the right side. LABORATORY DATA: Reviewed. Sodium 141, potassium 4.2, BUN 13, and creatinine 0.6. D-dimer is 0.5. White cell count 18,000 and hemoglobin 12.5. IMPRESSION: 1. Dyspnea with cough secondary to extensive community-acquired left lower lobe pneumonia. 2. Chest pain, pleuritic type from extensive left lower lobe pneumonia. 3. 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 4. Abnormal CT chest with extensive pneumonia involving the left lower lobe and also mild patchy infiltrate in the right lower lobe consistent with pneumonia. she will need a follow up ct chest in 4-6 weeks.There was tiny pleural effusion. RECOMMENDATIONS: 1. We would broaden the antibiotic coverage to cover for anaerobic gram-negative and gram-positive organisms due to the severity of pneumonia. 2. Follow white cell count. 3. Follow sputum and blood cultures. 4. Follow the official CT abdomen and pelvis reported as well to rule out any abdominal pathology. repeat ct chest in 4-6 weeks 5. Taper steroids. 6. Bronchodilators. 7. Continue present oxygen. 8. Discussed with RN, and we will follow along with you. AURORA OLIVER MD DR: CINDY/jeanne JOB#: [id number] / [id number] JONI
[2017-03-29] MEDS: VANCOMYCIN PER PHARMACY MC PRN (12:44)
--- NOTE | 2017-03-29 12:45 | HP ---
ADMIT DATE: 03/29/2017 CHIEF COMPLAINT: Left-sided chest pain, abdominal pain. HISTORY OF PRESENT ILLNESS: A 61-year-old female with prior history of COPD and chronic respiratory failure on 2-3 liters of oxygen who presented to the ER with sudden onset of chest pain which is getting worse with breathing. Symptoms started yesterday night while she was sleeping. Symptoms slowly got worse which made her to come to the ER, and she was sitting in the bed with intractable nature of the pain. She was currently taking fentanyl; however, pain is not resolved. She says the pain is getting worse with breathing and getting better with decreased breathing, and pain is located in the upper abdomen and lower chest. Yesterday, the pain was there in the left upper extremity. She denies any smoking, quit smoking 2 years ago. Denies any noncompliance with her medications. Denies any fever, chills, sick contacts, or travel history. PAST MEDICAL HISTORY: COPD, chronic respiratory failure, and anxiety. PERSONAL HISTORY: No smoking, no alcohol, no drug abuse. ALLERGIES: NKDA. FAMILY HISTORY: Hypertension. REVIEW OF SYSTEMS: Please see my electronic H and P. PHYSICAL EXAMINATION: Please see my electronic H and P. LABORATORY DATA: WBC 18.0, hemoglobin is 12.5, MCV is 91, and platelets 285. Chemistry: Sodium is 141, potassium is 4.2, chloride is 103, carbon dioxide 27, anion gap is 11, and creatinine 2.6. Lactic acid is 1.2. First set of troponin 0.017. Albumin is 3.0. IMAGING STUDIES: Chest x-ray: Emphysema with pleural parenchymal scarring and blunting of the left lateral costophrenic angle suggesting small amount of pleural fluid versus infiltrate. ASSESSMENT AND PLAN: 1. Acute on chronic respiratory failure present on admission. 2. Suspected left-sided community-acquired pneumonia. 3. Intractable chest pain, possible pleuritic, unclear etiology. 4. Chronic obstructive pulmonary disease, chronic with emphysema. 5. Anxiety. PLAN: 1. Currently, the patient's chest pain is not resolved. She is getting fentanyl, and we will continue 25 mcg of fentanyl q. 2h., and also I will add Motrin. 2. We will get D-dimer to rule out any PE. 3. Also, we will get a CT of the abdomen and pelvis with contrast. 4. Consult Cardiology for further recommendations. We will need to rule out ACS. However, it is less likely due to the description of the pain. EKG was personally reviewed. Sinus tachycardia. I also ordered a D-dimer to rule out PE. 5. She has been started on broad-spectrum antibiotics of Levaquin. We will continue that with IV hydration along with supplemental oxygen. 6. Also, we will add Flagyl at this time and change the antibiotics based on CT of the abdomen report. 7. Continue current care. 8. P.rreza [address]. 9. Home medications were reviewed and reconciled. The patient is on Pulmicort and Xanax. 10. Also, I will add Solu-Medrol for 2 days. 11. Overall prognosis is guarded. Plan explained to the patient. LARY COTA MD DR: TABITHA/jeanne JOB#: [id number] / [id number]
[2017-03-29] MEDS: IBUPROFEN 200 MG TABLET. PO PRN (12:49)
[2017-03-29] MEDS: VERAPAMIL 40 MG TABLET. PO SCH ×2 (12:49→20:51)
[2017-03-29] MEDS: PIPERACILLIN/TAZOBACTAM 4.5 GM in IV NORMAL SALINE 100ML 100 ML IV SCH ×3 (12:50→23:11)
[2017-03-29] MEDS ORDERED: NON FORMULARY ITEM (Albuterol Sulfate (Ventolin Hfa Inhaler) 2 PUFF) INH SCH (13:00)
[2017-03-29] MEDS: HYDROcodone/APAP 5/325MG 1 TAB TABLET PO PRN (14:52)
[2017-03-29] MEDS: ALPRAZolam 0.5 MG TABLET PO SCH ×2 (14:53→20:50)
[2017-03-29] MEDS: methylPREDNISolone SOD SUCC PF 40 MG/ML VIAL. IV SCH ×2 (14:53→20:51)
--- NOTE | 2017-03-29 16:30 | CARD ---
APPROVED REPORT EXAM: Two-dimensional and M-mode echocardiogram with Doppler and color Doppler. Other Information Quality : Technically Limited Technically limited study due to COPD INDICATION COPD Pulmonary Hypertention Chest Pain 2D DIMENSIONS RVDd1.7 (2.9-3.5cm)Left Atrium(2D)2.3 (1.6-4.0cm) IVSd0.8 (0.7-1.1cm)Aortic Root(2D)2.3 (2.0-3.7cm) LVDd4.1 (3.9-5.9cm)LVOT Diameter1.7 (1.8-2.4cm) PWd0.8 (0.7-1.1cm)LVDs3.0 (2.5-4.0cm) FS (%) 25.8 %SV37.5 ml LVEF(%)51.2 (>50%) Aortic Valve AoV Peak Tyler.152.8cm/sAoV VTI26.2cm AO Peak GR.9.3mmHgLVOT Peak Tyler.99.9cm/s LVOT VTI 18.18cmAO Mean GR.4mmHg ZAN (VMAX)1.55cm2 Mitral Valve MV E Eesqhjxk971.6cm/sMV DECEL PIBW466uf MV A Dlpaesjs628.5cm/sMV SXD55bn E/A Ratio1.2MVA (PHT)3.48cm2 TDI E/Lateral E'13.8E/Medial E'20.7 Tricuspid Valve TR P. Uuyjdhdr857sp/sRAP RWYPRKCG2yqIm TR Peak Gr.37ilPgIPWI75ysCi Pulmonary Vein S1 Oxtxtnlf93.5cm/sD2 Gldyqtar24.3cm/s LEFT VENTRICLE The left ventricle is normal size. There is normal left ventricular wall thickness. The left ventricu lar systolic function is normal and the ejection fraction is within normal range. The Ejection Fracti on is 55-60%. There is normal LV segmental wall motion. Transmitral Doppler flow pattern is Grade II- pseudonormal filling dynamics. RIGHT VENTRICLE The right ventricle is normal size. The right ventricular systolic function is normal. ATRIA The left atrium size is normal. The right atrium size is normal. The interatrial septum is intact wit h no evidence for an atrial septal defect or patent foramen ovale as noted on 2-D or Doppler imaging. AORTIC VALVE The aortic valve is calcified but opens well. Doppler and Color Flow revealed no significant aortic r egurgitation. There is no significant aortic valvular stenosis. MITRAL VALVE The mitral valve is normal in structure and function. There is no evidence of mitral valve prolapse. There is no mitral valve stenosis. Doppler and Color-flow revealed trace to mild mitral regurgitation . TRICUSPID VALVE The tricuspid valve is normal in structure and function. Doppler and Color Flow revealed trace tricus pid regurgitation. The PA pressure was estimated at 38 mmHg. There is no tricuspid valve stenosis. PULMONIC VALVE Doppler and Color Flow revealed no pulmonic valvular regurgitation. There is no pulmonic valvular edison nosis. GREAT VESSELS The aortic root is normal in size. The ascending aorta is normal in size. The IVC is dilated and rashid apses >50% with inspiration. PERICARDIAL EFFUSION There is no evidence of significant pericardial effusion. Critical Notification Critical Value: No <Conclusion> The left ventricular systolic function is normal and the ejection fraction is within normal range. Th e Ejection Fraction is 55-60%. There is normal LV segmental wall motion.
[2017-03-29] MEDS: BUDESONIDE 0.5 MG/2 ML NEBU. NEB SCH (19:09)
[2017-03-29] MEDS: ATORVASTATIN CALCIUM 20 MG TABLET PO SCH (20:50)
[2017-03-29 23:51] LABS: BILIRUBIN,URINE NEGATIVE (NEG); GLUCOSE,URINE 250 mg/dL (NEG); NITRITE,URINE NEGATIVE (NEG); PH,URINE 5.5; PROTEIN,URINE NEGATIVE (NEG-TRACE); UROBILINOGEN,URINE 0.2 mg/dL (0.2 mg/dL)
[2017-03-30 00:10] LABS: BACTERIA,URINE 0 /HPF (0-FEW); RBC,URINE OCC /HPF (0-2); SQUAMOUS EPITHELIAL CELL,UR FEW /LPF; WBC,URINE OCC /HPF (0-4)
[2017-03-30] MEDS: IV NORMAL SALINE 1000ML BAG 1,000 ML IV SCH (00:24)
[2017-03-30] MEDS: VANCOMYCIN 750 MG in IV NORMAL SALINE 250ML 250 ML IV SCH ×2 (00:25→13:16)
[2017-03-30 02:48] VITALS: BP 91/55
[2017-03-30] MEDS: fentaNYL PF VIAL 100 MCG/2 ML VIAL IV PRN (03:52)
[2017-03-30 04:17] LABS: BASO % 0 % (0-3); EOS % 0 % (0-3); HEMATOCRIT 32.1 % (36.0-47.0); HEMOGLOBIN 10.7 g/dL (12.0-15.5); LYMPH # 0.7 x10^3/uL (1.0-4.8); LYMPH % 3 % (24-48); MEAN CORPUSCULAR HEMOGLOBIN 30 pg (25-35); MEAN CORPUSCULAR HGB CONC 33 g/dL (31-37); MEAN CORPUSCULAR VOLUME 90 fL (79-100); MONO % 4 % (0-9); NEUT % 93 % (31-73); PLATELET COUNT 228 x10^3/uL (140-400); RED BLOOD COUNT 3.55 x10^6/uL (3.50-5.40); RED CELL DISTRIBUTION WIDTH 13.7 % (11.5-14.5); WHITE BLOOD COUNT 23.4 x10^3/uL (4.0-11.0)
[2017-03-30 04:33] LABS: CALCIUM 7.8 mg/dL (8.5-10.1); CREATININE 0.6 mg/dL (0.6-1.0); GFR 102.3; POTASSIUM 3.2 mmol/L (3.5-5.1)
[2017-03-30] MEDS: methylPREDNISolone SOD SUCC PF 40 MG/ML VIAL. IV SCH ×3 (05:48→20:41)
[2017-03-30] MEDS: PIPERACILLIN/TAZOBACTAM 4.5 GM in IV NORMAL SALINE 100ML 100 ML IV SCH ×4 (05:48→23:37)
[2017-03-30 07:30] VITALS: BP 103/63
[2017-03-30] MEDS ORDERED: POTASSIUM CHLORIDE 20 MEQ TABLET.ER. PO ONE (08:00)
[2017-03-30] MEDS: IPRATRPIUM/ALBUTEROL 0.5/2.5MG 3 ML NEBU. NEB SCH (08:13)
[2017-03-30] MEDS: BUDESONIDE 0.5 MG/2 ML NEBU. NEB SCH ×2 (08:13→19:52)
[2017-03-30] MEDS: VANCOMYCIN PER PHARMACY MC PRN (08:18)
[2017-03-30] MEDS: ASPIRIN ENTERIC COATED 81 MG TABLET.DR. PO SCH (09:01)
[2017-03-30] MEDS: ALPRAZolam 0.5 MG TABLET PO SCH ×3 (09:01→20:40)
[2017-03-30] MEDS: VERAPAMIL 40 MG TABLET. PO SCH ×2 (09:52→20:39)
--- NOTE | 2017-03-30 10:32 | PDOC ---
PULMONARY PROGRESS NOTES Subjective episode of shakiness with Nebs Vitals Vital Signs Date Time Temp Pulse Resp B/P (MAP) Pulse Ox O2 Delivery O2 Flow Rate FiO2 03/30/17 09:52 100/57 03/30/17 08:38 Nasal Cannula 3.0 03/30/17 08:16 100 03/30/17 07:30 97.5 74 18 97.5 General: Alert, No acute distress Lungs: Other (decrease bs left base) Cardiovascular: S1 Abdomen: Soft Neuro Exam: Alert Extremities: No Edema Skin: Warm Labs Laboratory Tests Test 03/29/17 03:28 03/29/17 05:36 03/29/17 11:30 03/29/17 23:45 White Blood Count 18.0 x10^3/uL (4.0-11.0) Red Blood Count 4.30 x10^6/uL (3.50-5.40) Hemoglobin 12.5 g/dL (12.0-15.5) Hematocrit 39.0 % (36.0-47.0) Mean Corpuscular Volume 91 fL (79-100) Mean Corpuscular Hemoglobin 29 pg (25-35) Mean Corpuscular Hemoglobin Concent 32 g/dL (31-37) Red Cell Distribution Width 13.3 % (11.5-14.5) Platelet Count 285 x10^3/uL (140-400) Neutrophils (%) (Auto) 90 % (31-73) Lymphocytes (%) (Auto) 5 % (24-48) Monocytes (%) (Auto) 5 % (0-9) Eosinophils (%) (Auto) 0 % (0-3) Basophils (%) (Auto) 0 % (0-3) Neutrophils # (Auto) 16.1 x10^3uL (1.8-7.7) Lymphocytes # (Auto) 0.9 x10^3/uL (1.0-4.8) Monocytes # (Auto) 0.8 x10^3/uL (0.0-1.1) Eosinophils # (Auto) 0.1 x10^3/uL (0.0-0.7) Basophils # (Auto) 0.0 x10^3/uL (0.0-0.2) Segmented Neutrophils % 89 % (35-66) Band Neutrophils % 1 % (0-9) Lymphocytes % 6 % (24-48) Monocytes % 3 % (0-10) Eosinophils % 1 % (0-5) Platelet Estimate Adequate (ADEQUATE) D-Dimer (Renea) 0.51 ug/mlFEU (0.00-0.50) Sodium Level 141 mmol/L (136-145) Potassium Level 4.2 mmol/L (3.5-5.1) Chloride Level 103 mmol/L (98-107) Carbon Dioxide Level 27 mmol/L (21-32) Anion Gap 11 (6-14) Blood Urea Nitrogen 13 mg/dL (7-20) Creatinine 0.6 mg/dL (0.6-1.0) Estimated GFR (Cockcroft-Gault) 102.3 BUN/Creatinine Ratio 22 (6-20) Glucose Level 143 mg/dL (70-99) Lactic Acid Level 1.2 mmol/L (0.4-2.0) 1.4 mmol/L (0.4-2.0) Calcium Level 8.7 mg/dL (8.5-10.1) Total Bilirubin 0.6 mg/dL (0.2-1.0) Aspartate Amino Transf (AST/SGOT) 20 U/L (15-37) Alanine Aminotransferase (ALT/SGPT) 20 U/L (14-59) Alkaline Phosphatase 56 U/L (46-116) Creatine Kinase 69 U/L (26-192) Creatine Kinase MB (Mass) 0.6 ng/mL (0.0-3.6) Creatine Kinase MB Relative Index 0.9 % (0-4) Troponin I Quantitative < 0.017 ng/mL (0.000-0.055) < 0.017 ng/mL (0.000-0.055) Total Protein 6.6 g/dL (6.4-8.2) Albumin 3.3 g/dL (3.4-5.0) Albumin/Globulin Ratio 1.0 (1.0-1.7) Triglycerides Level 47 mg/dL (0-150) Cholesterol Level 218 mg/dL (0-200) LDL Cholesterol, Calculated 132 mg/dL (0-100) VLDL Cholesterol, Calculated 9 mg/dL (0-40) Non-HDL Cholesterol Calculated 141 mg/dL (0-129) HDL Cholesterol 77 mg/dL (40-60) Cholesterol/HDL Ratio 2.8 Lipase 120 U/L (73-393) Urine Collection Type Unknown Urine Color Yellow Urine Clarity Clear Urine pH 5.5 Urine Specific [place] 1.020 Urine Protein Negative mg/dL (NEG-TRACE) Urine Glucose (UA) 250 mg/dL (NEG) Urine Ketones (Stick) Trace mg/dL (NEG) Urine Blood Negative (NEG) Urine Nitrite Negative (NEG) Urine Bilirubin Negative (NEG) Urine Urobilinogen Dipstick 0.2 mg/dL (0.2 mg/dL) Urine Leukocyte Esterase Negative (NEG) Urine RBC Occ /HPF (0-2) Urine WBC Occ /HPF (0-4) Urine Squamous Epithelial Cells Few /LPF Urine Bacteria 0 /HPF (0-FEW) Test 03/30/17 03:26 White Blood Count 23.4 x10^3/uL (4.0-11.0) Red Blood Count 3.55 x10^6/uL (3.50-5.40) Hemoglobin 10.7 g/dL (12.0-15.5) Hematocrit 32.1 % (36.0-47.0) Mean Corpuscular Volume 90 fL (79-100) Mean Corpuscular Hemoglobin 30 pg (25-35) Mean Corpuscular Hemoglobin Concent 33 g/dL (31-37) Red Cell Distribution Width 13.7 % (11.5-14.5) Platelet Count 228 x10^3/uL (140-400) Neutrophils (%) (Auto) 93 % (31-73) Lymphocytes (%) (Auto) 3 % (24-48) Monocytes (%) (Auto) 4 % (0-9) Eosinophils (%) (Auto) 0 % (0-3) Basophils (%) (Auto) 0 % (0-3) Neutrophils # (Auto) 21.7 x10^3uL (1.8-7.7) Lymphocytes # (Auto) 0.7 x10^3/uL (1.0-4.8) Monocytes # (Auto) 1.0 x10^3/uL (0.0-1.1) Eosinophils # (Auto) 0.0 x10^3/uL (0.0-0.7) Basophils # (Auto) 0.0 x10^3/uL (0.0-0.2) Sodium Level 143 mmol/L (136-145) Potassium Level 3.2 mmol/L (3.5-5.1) Chloride Level 110 mmol/L (98-107) Carbon Dioxide Level 27 mmol/L (21-32) Anion Gap 6 (6-14) Blood Urea Nitrogen 11 mg/dL (7-20) Creatinine 0.6 mg/dL (0.6-1.0) Estimated GFR (Cockcroft-Gault) 102.3 Glucose Level 186 mg/dL (70-99) Calcium Level 7.8 mg/dL (8.5-10.1) Laboratory Tests Test 03/29/17 11:30 03/29/17 23:45 03/30/17 03:26 Troponin I Quantitative < 0.017 ng/mL (0.000-0.055) Urine Collection Type Unknown Urine Color Yellow Urine Clarity Clear Urine pH 5.5 Urine Specific [place] 1.020 Urine Protein Negative mg/dL (NEG-TRACE) Urine Glucose (UA) 250 mg/dL (NEG) Urine Ketones (Stick) Trace mg/dL (NEG) Urine Blood Negative (NEG) Urine Nitrite Negative (NEG) Urine Bilirubin Negative (NEG) Urine Urobilinogen Dipstick 0.2 mg/dL (0.2 mg/dL) Urine Leukocyte Esterase Negative (NEG) Urine RBC Occ /HPF (0-2) Urine WBC Occ /HPF (0-4) Urine Squamous Epithelial Cells Few /LPF Urine Bacteria 0 /HPF (0-FEW) White Blood Count 23.4 x10^3/uL (4.0-11.0) Red Blood Count 3.55 x10^6/uL (3.50-5.40) Hemoglobin 10.7 g/dL (12.0-15.5) Hematocrit 32.1 % (36.0-47.0) Mean Corpuscular Volume 90 fL (79-100) Mean Corpuscular Hemoglobin 30 pg (25-35) Mean Corpuscular Hemoglobin Concent 33 g/dL (31-37) Red Cell Distribution Width 13.7 % (11.5-14.5) Platelet Count 228 x10^3/uL (140-400) Neutrophils (%) (Auto) 93 % (31-73) Lymphocytes (%) (Auto) 3 % (24-48) Monocytes (%) (Auto) 4 % (0-9) Eosinophils (%) (Auto) 0 % (0-3) Basophils (%) (Auto) 0 % (0-3) Neutrophils # (Auto) 21.7 x10^3uL (1.8-7.7) Lymphocytes # (Auto) 0.7 x10^3/uL (1.0-4.8) Monocytes # (Auto) 1.0 x10^3/uL (0.0-1.1) Eosinophils # (Auto) 0.0 x10^3/uL (0.0-0.7) Basophils # (Auto) 0.0 x10^3/uL (0.0-0.2) Sodium Level 143 mmol/L (136-145) Potassium Level 3.2 mmol/L (3.5-5.1) Chloride Level 110 mmol/L (98-107) Carbon Dioxide Level 27 mmol/L (21-32) Anion Gap 6 (6-14) Blood Urea Nitrogen 11 mg/dL (7-20) Creatinine 0.6 mg/dL (0.6-1.0) Estimated GFR (Cockcroft-Gault) 102.3 Glucose Level 186 mg/dL (70-99) Calcium Level 7.8 mg/dL (8.5-10.1) Medications Active Scripts Medications Dose Route/Sig Max Daily Dose Days Date Category Ipratropium [place] 0.2 Mg/1 Ml Solution 1 Vial NEB QID 03/29/17 Reported Verapamil Er (Verapamil Hcl) 240 Mg Cap24h.pel 40 Mg PO BID 03/29/17 Reported Ventolin Hfa Inhaler (Albuterol Sulfate) 18 Gm Hfa.aer.ad 2 Puff INH QID 03/29/17 Reported Alprazolam 0.5 Mg Tablet 1 Tab PO TID 03/29/17 Reported Fosamax (Alendronate Sodium) 70 Mg Tablet 70 Mg PO WEEKLY 03/29/17 Reported Aspir 81 (Aspirin) 81 Mg Tablet.dr 81 Mg PO DAILY 03/29/17 Reported Combivent Respimat Inhal (Ipratropium/Albuterol Sulfate) 4 Gm Aer.w.adap 2 Inh IH QID 03/29/17 Reported Incruse Ellipta (Umeclidinium [place]) 62.5 Mcg Blst.w.dev 62.5 Mcg IH 03/29/17 Reported Advair 500-50 Diskus (Fluticasone/Salmeterol) 1 Each Disk.w.dev 1 Inh IH BID 03/29/17 Reported Impression . 1. Dyspnea with cough secondary to extensive community-acquired left lower lobe pneumonia/ underlying COPD 2. Chest pain, pleuritic type from extensive left lower lobe pneumonia. 3. 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 4. Abnormal CT chest with extensive pneumonia involving the left lower lobe and partially calcified density RLL due to previous talc, also mild patchy infiltrate in the right lower lobe consistent with pneumonia. she will need a follow up ct chest in 4-6 weeks to r/o any mass in RLL.There was tiny pleural effusion. Plan . 1. BS antibiotic coverage to cover for anaerobic gram-negative and gram-positive organisms due to the severity of pneumonia. 2. Follow white cell count. 3. Follow sputum and blood cultures. 4. repeat ct chest in 4-6 weeks 5. Taper steroids. 6. Bronchodilators. 7. Continue present oxygen. 8. Discussed with RN, and we will follow along with you. AURORA OLIVER MD March 30, 2017 10:32
[2017-03-30 11:30] VITALS: BP 108/57
[2017-03-30] MEDS: HYDROcodone/APAP 5/325MG 1 TAB TABLET PO PRN (11:47)
[2017-03-30 14:52] VITALS: BP 107/61
[2017-03-30 19:12] VITALS: BP 109/55
[2017-03-30] MEDS: ATORVASTATIN CALCIUM 20 MG TABLET PO SCH (20:40)
--- NOTE | 2017-03-30 21:25 | PDOC ---
PROGRESS NOTES Chief Complaint Chief Complaint CC: SOB 1. Acute on chronic respiratory failure present on admission: On supplemental oxygen, Echo NORMAL EF 2. Community-acquired pneumonia.: On IV Levaquin, vancomycin, Zosyn, follow blood cx, 3. pleuritic chest pain due to Pneumonia 4. Chronic obstructive pulmonary disease, chronic with emphysema. : iv solumedrol with periodic nebulizations, 5. Anxiety.: prn Ativan 6. Hypokalemia : Replaced 7. HTN: stable, continue current dose , prn hydralazine Vitals Vitals Vital Signs Date Time Temp Pulse Resp B/P (MAP) Pulse Ox O2 Delivery O2 Flow Rate FiO2 03/30/17 20:39 86 109/55 03/30/17 19:42 Nasal Cannula 2.0 03/30/17 19:12 98.0 18 99 98.0 Physical Exam General: Alert, Oriented X3, Cooperative, moderate distress Heart: Regular rate (SR), Normal S1, Normal S2, Other (distant heart sounds) Lungs: Other (decrease bs left base) Abdomen: Other (firm abdomen with tenderness upon palpation) Skin: No breakdown, No significant lesion Labs LABS Laboratory Tests Test 03/29/17 23:45 03/30/17 03:26 Urine Collection Type Unknown Urine Color Yellow Urine Clarity Clear Urine pH 5.5 Urine Specific [place] 1.020 Urine Protein Negative mg/dL (NEG-TRACE) Urine Glucose (UA) 250 mg/dL (NEG) Urine Ketones (Stick) Trace mg/dL (NEG) Urine Blood Negative (NEG) Urine Nitrite Negative (NEG) Urine Bilirubin Negative (NEG) Urine Urobilinogen Dipstick 0.2 mg/dL (0.2 mg/dL) Urine Leukocyte Esterase Negative (NEG) Urine RBC Occ /HPF (0-2) Urine WBC Occ /HPF (0-4) Urine Squamous Epithelial Cells Few /LPF Urine Bacteria 0 /HPF (0-FEW) White Blood Count 23.4 x10^3/uL (4.0-11.0) Red Blood Count 3.55 x10^6/uL (3.50-5.40) Hemoglobin 10.7 g/dL (12.0-15.5) Hematocrit 32.1 % (36.0-47.0) Mean Corpuscular Volume 90 fL (79-100) Mean Corpuscular Hemoglobin 30 pg (25-35) Mean Corpuscular Hemoglobin Concent 33 g/dL (31-37) Red Cell Distribution Width 13.7 % (11.5-14.5) Platelet Count 228 x10^3/uL (140-400) Neutrophils (%) (Auto) 93 % (31-73) Lymphocytes (%) (Auto) 3 % (24-48) Monocytes (%) (Auto) 4 % (0-9) Eosinophils (%) (Auto) 0 % (0-3) Basophils (%) (Auto) 0 % (0-3) Neutrophils # (Auto) 21.7 x10^3uL (1.8-7.7) Lymphocytes # (Auto) 0.7 x10^3/uL (1.0-4.8) Monocytes # (Auto) 1.0 x10^3/uL (0.0-1.1) Eosinophils # (Auto) 0.0 x10^3/uL (0.0-0.7) Basophils # (Auto) 0.0 x10^3/uL (0.0-0.2) Sodium Level 143 mmol/L (136-145) Potassium Level 3.2 mmol/L (3.5-5.1) Chloride Level 110 mmol/L (98-107) Carbon Dioxide Level 27 mmol/L (21-32) Anion Gap 6 (6-14) Blood Urea Nitrogen 11 mg/dL (7-20) Creatinine 0.6 mg/dL (0.6-1.0) Estimated GFR (Cockcroft-Gault) 102.3 Glucose Level 186 mg/dL (70-99) Calcium Level 7.8 mg/dL (8.5-10.1) Assessment and Plan Assessmemt and Plan Problems Medical Problems: (1) Community acquired pneumonia Status: Acute (2) COPD (chronic obstructive pulmonary disease) Status: Acute (3) Sepsis Status: Acute Problems: Comment Review of Relevant I have reviewed the following items henrry (where applicable) has been applied. Labs Laboratory Tests Test 03/29/17 03:28 03/29/17 05:36 03/29/17 11:30 03/29/17 23:45 White Blood Count 18.0 x10^3/uL (4.0-11.0) Red Blood Count 4.30 x10^6/uL (3.50-5.40) Hemoglobin 12.5 g/dL (12.0-15.5) Hematocrit 39.0 % (36.0-47.0) Mean Corpuscular Volume 91 fL (79-100) Mean Corpuscular Hemoglobin 29 pg (25-35) Mean Corpuscular Hemoglobin Concent 32 g/dL (31-37) Red Cell Distribution Width 13.3 % (11.5-14.5) Platelet Count 285 x10^3/uL (140-400) Neutrophils (%) (Auto) 90 % (31-73) Lymphocytes (%) (Auto) 5 % (24-48) Monocytes (%) (Auto) 5 % (0-9) Eosinophils (%) (Auto) 0 % (0-3) Basophils (%) (Auto) 0 % (0-3) Neutrophils # (Auto) 16.1 x10^3uL (1.8-7.7) Lymphocytes # (Auto) 0.9 x10^3/uL (1.0-4.8) Monocytes # (Auto) 0.8 x10^3/uL (0.0-1.1) Eosinophils # (Auto) 0.1 x10^3/uL (0.0-0.7) Basophils # (Auto) 0.0 x10^3/uL (0.0-0.2) Segmented Neutrophils % 89 % (35-66) Band Neutrophils % 1 % (0-9) Lymphocytes % 6 % (24-48) Monocytes % 3 % (0-10) Eosinophils % 1 % (0-5) Platelet Estimate Adequate (ADEQUATE) D-Dimer (Renea) 0.51 ug/mlFEU (0.00-0.50) Sodium Level 141 mmol/L (136-145) Potassium Level 4.2 mmol/L (3.5-5.1) Chloride Level 103 mmol/L (98-107) Carbon Dioxide Level 27 mmol/L (21-32) Anion Gap 11 (6-14) Blood Urea Nitrogen 13 mg/dL (7-20) Creatinine 0.6 mg/dL (0.6-1.0) Estimated GFR (Cockcroft-Gault) 102.3 BUN/Creatinine Ratio 22 (6-20) Glucose Level 143 mg/dL (70-99) Lactic Acid Level 1.2 mmol/L (0.4-2.0) 1.4 mmol/L (0.4-2.0) Calcium Level 8.7 mg/dL (8.5-10.1) Total Bilirubin 0.6 mg/dL (0.2-1.0) Aspartate Amino Transf (AST/SGOT) 20 U/L (15-37) Alanine Aminotransferase (ALT/SGPT) 20 U/L (14-59) Alkaline Phosphatase 56 U/L (46-116) Creatine Kinase 69 U/L (26-192) Creatine Kinase MB (Mass) 0.6 ng/mL (0.0-3.6) Creatine Kinase MB Relative Index 0.9 % (0-4) Troponin I Quantitative < 0.017 ng/mL (0.000-0.055) < 0.017 ng/mL (0.000-0.055) Total Protein 6.6 g/dL (6.4-8.2) Albumin 3.3 g/dL (3.4-5.0) Albumin/Globulin Ratio 1.0 (1.0-1.7) Triglycerides Level 47 mg/dL (0-150) Cholesterol Level 218 mg/dL (0-200) LDL Cholesterol, Calculated 132 mg/dL (0-100) VLDL Cholesterol, Calculated 9 mg/dL (0-40) Non-HDL Cholesterol Calculated 141 mg/dL (0-129) HDL Cholesterol 77 mg/dL (40-60) Cholesterol/HDL Ratio 2.8 Lipase 120 U/L (73-393) Urine Collection Type Unknown Urine Color Yellow Urine Clarity Clear Urine pH 5.5 Urine Specific [place] 1.020 Urine Protein Negative mg/dL (NEG-TRACE) Urine Glucose (UA) 250 mg/dL (NEG) Urine Ketones (Stick) Trace mg/dL (NEG) Urine Blood Negative (NEG) Urine Nitrite Negative (NEG) Urine Bilirubin Negative (NEG) Urine Urobilinogen Dipstick 0.2 mg/dL (0.2 mg/dL) Urine Leukocyte Esterase Negative (NEG) Urine RBC Occ /HPF (0-2) Urine WBC Occ /HPF (0-4) Urine Squamous Epithelial Cells Few /LPF Urine Bacteria 0 /HPF (0-FEW) Test 03/30/17 03:26 White Blood Count 23.4 x10^3/uL (4.0-11.0) Red Blood Count 3.55 x10^6/uL (3.50-5.40) Hemoglobin 10.7 g/dL (12.0-15.5) Hematocrit 32.1 % (36.0-47.0) Mean Corpuscular Volume 90 fL (79-100) Mean Corpuscular Hemoglobin 30 pg (25-35) Mean Corpuscular Hemoglobin Concent 33 g/dL (31-37) Red Cell Distribution Width 13.7 % (11.5-14.5) Platelet Count 228 x10^3/uL (140-400) Neutrophils (%) (Auto) 93 % (31-73) Lymphocytes (%) (Auto) 3 % (24-48) Monocytes (%) (Auto) 4 % (0-9) Eosinophils (%) (Auto) 0 % (0-3) Basophils (%) (Auto) 0 % (0-3) Neutrophils # (Auto) 21.7 x10^3uL (1.8-7.7) Lymphocytes # (Auto) 0.7 x10^3/uL (1.0-4.8) Monocytes # (Auto) 1.0 x10^3/uL (0.0-1.1) Eosinophils # (Auto) 0.0 x10^3/uL (0.0-0.7) Basophils # (Auto) 0.0 x10^3/uL (0.0-0.2) Sodium Level 143 mmol/L (136-145) Potassium Level 3.2 mmol/L (3.5-5.1) Chloride Level 110 mmol/L (98-107) Carbon Dioxide Level 27 mmol/L (21-32) Anion Gap 6 (6-14) Blood Urea Nitrogen 11 mg/dL (7-20) Creatinine 0.6 mg/dL (0.6-1.0) Estimated GFR (Cockcroft-Gault) 102.3 Glucose Level 186 mg/dL (70-99) Calcium Level 7.8 mg/dL (8.5-10.1) Laboratory Tests Test 03/29/17 23:45 03/30/17 03:26 Urine Collection Type Unknown Urine Color Yellow Urine Clarity Clear Urine pH 5.5 Urine Specific [place] 1.020 Urine Protein Negative mg/dL (NEG-TRACE) Urine Glucose (UA) 250 mg/dL (NEG) Urine Ketones (Stick) Trace mg/dL (NEG) Urine Blood Negative (NEG) Urine Nitrite Negative (NEG) Urine Bilirubin Negative (NEG) Urine Urobilinogen Dipstick 0.2 mg/dL (0.2 mg/dL) Urine Leukocyte Esterase Negative (NEG) Urine RBC Occ /HPF (0-2) Urine WBC Occ /HPF (0-4) Urine Squamous Epithelial Cells Few /LPF Urine Bacteria 0 /HPF (0-FEW) White Blood Count 23.4 x10^3/uL (4.0-11.0) Red Blood Count 3.55 x10^6/uL (3.50-5.40) Hemoglobin 10.7 g/dL (12.0-15.5) Hematocrit 32.1 % (36.0-47.0) Mean Corpuscular Volume 90 fL (79-100) Mean Corpuscular Hemoglobin 30 pg (25-35) Mean Corpuscular Hemoglobin Concent 33 g/dL (31-37) Red Cell Distribution Width 13.7 % (11.5-14.5) Platelet Count 228 x10^3/uL (140-400) Neutrophils (%) (Auto) 93 % (31-73) Lymphocytes (%) (Auto) 3 % (24-48) Monocytes (%) (Auto) 4 % (0-9) Eosinophils (%) (Auto) 0 % (0-3) Basophils (%) (Auto) 0 % (0-3) Neutrophils # (Auto) 21.7 x10^3uL (1.8-7.7) Lymphocytes # (Auto) 0.7 x10^3/uL (1.0-4.8) Monocytes # (Auto) 1.0 x10^3/uL (0.0-1.1) Eosinophils # (Auto) 0.0 x10^3/uL (0.0-0.7) Basophils # (Auto) 0.0 x10^3/uL (0.0-0.2) Sodium Level 143 mmol/L (136-145) Potassium Level 3.2 mmol/L (3.5-5.1) Chloride Level 110 mmol/L (98-107) Carbon Dioxide Level 27 mmol/L (21-32) Anion Gap 6 (6-14) Blood Urea Nitrogen 11 mg/dL (7-20) Creatinine 0.6 mg/dL (0.6-1.0) Estimated GFR (Cockcroft-Gault) 102.3 Glucose Level 186 mg/dL (70-99) Calcium Level 7.8 mg/dL (8.5-10.1) Microbiology 03/29/17 Blood Culture - Preliminary, Resulted NO GROWTH AFTER 1 DAY Medications Current Medications Sodium Chloride 1,000 ml @ 675 mls/hr Q1H29M IV Last administered on 05:35; Start 03/29/17 at 03:45; Stop 03/29/17 at 05:44; Status DC Fentanyl Citrate (Fentanyl 2ml Vial) 50 mcg PRN Q15MIN PRN IV PAIN GREATER THAN 3/10 Last administered on 03/29/17 04:31; Start 03/29/17 at 03:45; Stop at 03:44; Status DC Ondansetron HCl (Zofran) 4 mg 1X ONCE IV Last administered on 03/29/17 03:56 ; Start 03/29/17 at 03:45; Stop 03/29/17 at 03:46; Status DC Ondansetron HCl (Zofran) 4 mg PRN Q8HRS PRN IV NAUSEA/VOMITING; Start 03/29/17 at 05:00; Stop 03/30/17 at 04:59; Status DC Fentanyl Citrate (Fentanyl 2ml Vial) 50 mcg PRN Q2HR PRN IV PAIN Last administered on 03/30/17 03:52; Start 03/29/17 at 05:00; Stop 03/30/17 at 04:59 ; Status DC Sodium Chloride 1,000 ml @ 125 mls/hr Q8H IV Last administered on 03/30/17 00 :24; Start 03/29/17 at 05:00; Stop 03/30/17 at 04:59; Status DC Acetaminophen (Tylenol) 650 mg PRN Q4HRS PRN PO FEVER; Start 03/29/17 at 04:45 ; Stop 03/30/17 at 04:44; Status DC Albuterol/ Ipratropium (Duoneb) 3 ml RTQID NEB Last administered on 03/29/17 08:19; Start 03/29/17 at 08:00; Stop 03/29/17 at 10:27; Status DC Levofloxacin/ Dextrose (Levaquin Per Pharmacy) 1 each PRN DAILY PRN MC SEE COMMENTS; Start 03/29/17 at 05:00 Levofloxacin/ Dextrose 100 ml @ 100 mls/hr Q24H IV Last administered on 04:48; Start 03/29/17 at 05:00 Iohexol (Omnipaque 240 Mg/ml) 50 ml 1X ONCE PO Last administered on 03/29/17 09:15; Start 03/29/17 at 09:15; Stop 03/29/17 at 09:16; Status DC Iohexol (Omnipaque 300 Mg/ml) 75 ml 1X ONCE IV Last administered on 03/29/17 09:15; Start 03/29/17 at 09:15; Stop 03/29/17 at 09:16; Status DC Info (Do NOT chart on this entry -- for MONITORING) 1 each PRN DAILY PRN MC SEE COMMENTS; Start 03/29/17 at 09:15; Stop 03/31/17 at 09:14 Metronidazole 100 ml @ 100 mls/hr Q8HRS IV ; Start 03/29/17 at 10:00; Stop at 14:32; Status DC Acetaminophen (Tylenol) 325 mg PRN Q6HRS PRN PO MILD PAIN / TEMP; Start at 09:15 Acetaminophen/ Hydrocodone Bitart (Lortab 5/325) 1 tab PRN Q6HRS PRN PO MODERATE TO SEVERE PAIN Last administered on 03/30/17 11:47; Start 03/29/17 at 09:15 Hydralazine HCl (Apresoline) 10 mg PRN Q4HRS PRN IVP ELEVATED BP, SEE COMMENTS ; Start 03/29/17 at 09:15 Ondansetron HCl (Zofran) 4 mg PRN Q8HRS PRN IV NAUSEA/VOMITING; Start 03/29/17 at 09:15 Albuterol Sulfate (Ventolin Neb Soln) 2.5 mg PRN Q4HRS PRN NEB SHORTNESS OF BREATH; Start 03/29/17 at 09:15 Alprazolam (Xanax) 0.5 mg TID PO Last administered on 03/30/17 20:40; Start at 14:00 Aspirin (Ecotrin) 81 mg DAILYWBKFT PO Last administered on 03/30/17 09:01; Start 03/30/17 at 08:00 Ipratropium [place] (Atrovent) 0.2 mg RTQID NEB ; Start 03/29/17 at 12:00; Status UNV Non-Formulary Medication 2 puff QID INH ; Start 03/29/17 at 13:00; Status UNV Non-Formulary Medication 70 mg WEEKLY PO ; Start 04/05/17 at 09:00; Status UNV Budesonide (Pulmicort) 0.5 mg RTBID NEB Last administered on 03/30/17 08:13; Start 03/29/17 at 20:00 Albuterol/ Ipratropium (Duoneb) 3 ml RTQID NEB Last administered on 03/30/17 08:13; Start 03/29/17 at 12:00; Stop 03/30/17 at 09:14; Status DC Verapamil HCl ([place]) 40 mg BID PO Last administered on 03/29/17 20:51; Start 03/29/17 at 10:30 Methylprednisolone Sodium Succinate (SOLU-Medrol 40MG VIAL) 40 mg Q8HRS IV Last administered on 03/30/17 20:41; Start 03/29/17 at 14:00; Stop 03/31/17 at 13:59 Albuterol/ Ipratropium (Duoneb) 3 ml RTQID PRN NEB sob; Start 03/29/17 at 10:30 ; Status UNV Ibuprofen (Motrin) 200 mg PRN Q6HRS PRN PO INFLAMMATION Last administered on 12:49; Start 03/29/17 at 10:30 Piperacillin Sod/ Tazobactam Sod (Zosyn Per Pharmacy) 1 each PRN DAILY PRN MC SEE COMMENTS; Start 03/29/17 at 12:00 Vancomycin HCl (Vanco Per Pharmacy) 1 each PRN DAILY PRN MC SEE COMMENTS Last administered on 03/30/17 08:18; Start 03/29/17 at 12:00 Vancomycin HCl 1.25 gm/Sodium Chloride 250 ml @ 166.667 mls/hr 1X ONCE IV Last administered on 03/29/17 14:55; Start 03/29/17 at 12:00; Stop 03/29/17 at 13:29; Status DC Piperacillin Sod/ Tazobactam Sod 4.5 gm/Sodium Chloride 100 ml @ 200 mls/hr Q6HRS IV Last administered on 03/30/17 18:08; Start 03/29/17 at 12:00 Vancomycin HCl 750 mg/Sodium Chloride 250 ml @ 250 mls/hr Q12H IV Last administered on 03/30/17 13:16; Start 03/30/17 at 01:00 Vancomycin HCl 1 each 1X ONCE MC ; Start 03/31/17 at 00:30; Stop 03/31/17 at 00 :31 Atorvastatin Calcium (Lipitor) 20 mg QHS PO Last administered on 03/30/17 20: 40; Start 03/29/17 at 21:00 Potassium Chloride (Klor-Con) 40 meq 1X ONCE PO Last administered on 09:02; Start 03/30/17 at 08:00; Stop 03/30/17 at 08:04; Status DC Active Scripts Active Reported Ipratropium Runnells 0.2 Mg/1 Ml Solution 1 Vial NEB QID Verapamil Er (Verapamil Hcl) 240 Mg Cap24h.pel 40 Mg PO BID Ventolin Hfa Inhaler (Albuterol Sulfate) 18 Gm Hfa.aer.ad 2 Puff INH QID Alprazolam 0.5 Mg Tablet 1 Tab PO TID Fosamax (Alendronate Sodium) 70 Mg Tablet 70 Mg PO WEEKLY Aspir 81 (Aspirin) 81 Mg Tablet.dr 81 Mg PO DAILY Combivent Respimat Inhal (Ipratropium/Albuterol Sulfate) 4 Gm Aer.w.adap 2 Inh IH QID Incruse Ellipta (Umeclidinium Runnells) 62.5 Mcg Blst.w.dev 62.5 Mcg IH Advair 500-50 Diskus (Fluticasone/Salmeterol) 1 Each Disk.w.dev 1 Inh IH BID Vitals/I & O Vital Sign - Last 24 Hours 03/29/17 03/30/17 03/30/17 03/30/17 23:40 02:48 03:52 04:22 Temp 98.0 97.9 98.0 97.9 Pulse 75 64 Resp 18 21 22 20 B/P (MAP) 107/53 (71) 91/55 (67) Pulse Ox 96 96 O2 Delivery Nasal Cannula Nasal Cannula Nasal Cannula Nasal Cannula O2 Flow Rate 3.0 3.0 3.0 3.0 03/30/17 03/30/17 03/30/17 03/30/17 07:30 08:16 08:20 08:38 Temp 97.5 97.5 Pulse 74 Resp 18 B/P (MAP) 103/63 (76) Pulse Ox 98 100 100 O2 Delivery Nasal Cannula Nasal Cannula Nasal Cannula Nasal Cannula O2 Flow Rate 3.0 3.0 3.0 3.0 03/30/17 03/30/17 03/30/17 03/30/17 09:52 11:30 11:47 12:47 Temp 98.0 98.0 Pulse 99 Resp 22 22 20 B/P (MAP) 100/57 108/57 (74) Pulse Ox 94 O2 Delivery Nasal Cannula Nasal Cannula Nasal Cannula O2 Flow Rate 3.0 3.0 3.0 03/30/17 03/30/17 03/30/17 03/30/17 14:52 19:12 19:42 20:39 Temp 98.0 98.0 98.0 98.0 Pulse 89 86 86 Resp 20 18 B/P (MAP) 107/61 (76) 109/55 (73) 109/55 Pulse Ox 98 99 O2 Delivery Nasal Cannula Nasal Cannula Nasal Cannula O2 Flow Rate 3.0 2.0 2.0 Intake and Output 03/29/17 03/29/17 03/30/17 15:00 23:00 07:00 Intake Total 1000 ml 2280 ml 1150 ml Output Total 250 ml 1300 ml Balance 1000 ml 2030 ml -150 ml LARY COTA MD March 30, 2017 21:24
[2017-03-30 23:16] VITALS: BP 110/63
[2017-03-31] MEDS: VANCOMYCIN 750 MG in IV NORMAL SALINE 250ML 250 ML IV SCH (01:24)
[2017-03-31] MEDS: VANCOMYCIN PER PHARMACY MC PRN (02:22)
[2017-03-31 03:28] VITALS: BP 122/82
[2017-03-31] MEDS: PIPERACILLIN/TAZOBACTAM 4.5 GM in IV NORMAL SALINE 100ML 100 ML IV SCH ×3 (05:39→18:11)
[2017-03-31] MEDS: methylPREDNISolone SOD SUCC PF 40 MG/ML VIAL. IV SCH (06:12)
[2017-03-31 06:14] VITALS: BP 139/62
[2017-03-31] MEDS: ACETAMINOPHEN 325 MG TABLET. PO PRN (06:18)
[2017-03-31] MEDS: ALPRAZolam 0.5 MG TABLET PO SCH ×3 (08:28→21:09)
[2017-03-31] MEDS: VERAPAMIL 40 MG TABLET. PO SCH ×2 (08:28→21:09)
[2017-03-31] MEDS: ASPIRIN ENTERIC COATED 81 MG TABLET.DR. PO SCH (08:28)
[2017-03-31] MEDS: BUDESONIDE 0.5 MG/2 ML NEBU. NEB SCH ×2 (09:06→19:39)
[2017-03-31] MEDS: VANCOMYCIN 1.25 GM in IV NORMAL SALINE 250ML 250 ML IV SCH ×2 (09:49→21:10)
--- NOTE | 2017-03-31 10:33 | PDOC ---
PULMONARY PROGRESS NOTES Subjective mils RADHA with exertion Vitals Vital Signs Date Time Temp Pulse Resp B/P (MAP) Pulse Ox O2 Delivery O2 Flow Rate FiO2 03/31/17 09:11 99 Nasal Cannula 3.0 03/31/17 08:28 87 139/62 03/31/17 06:14 98.1 22 98.1 General: Alert, No acute distress Lungs: Other (decrease bs left base) Cardiovascular: S1 Abdomen: Soft Neuro Exam: Alert Extremities: No Edema Skin: Warm Labs Laboratory Tests Test 03/29/17 11:30 03/29/17 23:45 03/30/17 03:26 03/31/17 00:35 Troponin I Quantitative < 0.017 ng/mL (0.000-0.055) Urine Collection Type Unknown Urine Color Yellow Urine Clarity Clear Urine pH 5.5 Urine Specific [place] 1.020 Urine Protein Negative mg/dL (NEG-TRACE) Urine Glucose (UA) 250 mg/dL (NEG) Urine Ketones (Stick) Trace mg/dL (NEG) Urine Blood Negative (NEG) Urine Nitrite Negative (NEG) Urine Bilirubin Negative (NEG) Urine Urobilinogen Dipstick 0.2 mg/dL (0.2 mg/dL) Urine Leukocyte Esterase Negative (NEG) Urine RBC Occ /HPF (0-2) Urine WBC Occ /HPF (0-4) Urine Squamous Epithelial Cells Few /LPF Urine Bacteria 0 /HPF (0-FEW) White Blood Count 23.4 x10^3/uL (4.0-11.0) Red Blood Count 3.55 x10^6/uL (3.50-5.40) Hemoglobin 10.7 g/dL (12.0-15.5) Hematocrit 32.1 % (36.0-47.0) Mean Corpuscular Volume 90 fL (79-100) Mean Corpuscular Hemoglobin 30 pg (25-35) Mean Corpuscular Hemoglobin Concent 33 g/dL (31-37) Red Cell Distribution Width 13.7 % (11.5-14.5) Platelet Count 228 x10^3/uL (140-400) Neutrophils (%) (Auto) 93 % (31-73) Lymphocytes (%) (Auto) 3 % (24-48) Monocytes (%) (Auto) 4 % (0-9) Eosinophils (%) (Auto) 0 % (0-3) Basophils (%) (Auto) 0 % (0-3) Neutrophils # (Auto) 21.7 x10^3uL (1.8-7.7) Lymphocytes # (Auto) 0.7 x10^3/uL (1.0-4.8) Monocytes # (Auto) 1.0 x10^3/uL (0.0-1.1) Eosinophils # (Auto) 0.0 x10^3/uL (0.0-0.7) Basophils # (Auto) 0.0 x10^3/uL (0.0-0.2) Sodium Level 143 mmol/L (136-145) Potassium Level 3.2 mmol/L (3.5-5.1) Chloride Level 110 mmol/L (98-107) Carbon Dioxide Level 27 mmol/L (21-32) Anion Gap 6 (6-14) Blood Urea Nitrogen 11 mg/dL (7-20) Creatinine 0.6 mg/dL (0.6-1.0) Estimated GFR (Cockcroft-Gault) 102.3 Glucose Level 186 mg/dL (70-99) Calcium Level 7.8 mg/dL (8.5-10.1) Vancomycin Level Trough 6.6 mcg/mL (10.0-20.0) Vancomycin Last Dose Date 03/30/17 Vancomycin Last Dose Time 1300 Laboratory Tests Test 03/31/17 00:35 Vancomycin Level Trough 6.6 mcg/mL (10.0-20.0) Vancomycin Last Dose Date 03/30/17 Vancomycin Last Dose Time 1300 Medications Active Scripts Medications Dose Route/Sig Max Daily Dose Days Date Category Ipratropium [place] 0.2 Mg/1 Ml Solution 1 Vial NEB QID 03/29/17 Reported Verapamil Er (Verapamil Hcl) 240 Mg Cap24h.pel 40 Mg PO BID 03/29/17 Reported Ventolin Hfa Inhaler (Albuterol Sulfate) 18 Gm Hfa.aer.ad 2 Puff INH QID 03/29/17 Reported Alprazolam 0.5 Mg Tablet 1 Tab PO TID 03/29/17 Reported Fosamax (Alendronate Sodium) 70 Mg Tablet 70 Mg PO WEEKLY 03/29/17 Reported Aspir 81 (Aspirin) 81 Mg Tablet.dr 81 Mg PO DAILY 03/29/17 Reported Combivent Respimat Inhal (Ipratropium/Albuterol Sulfate) 4 Gm Aer.w.adap 2 Inh IH QID 03/29/17 Reported Incruse Ellipta (Umeclidinium [place]) 62.5 Mcg Blst.w.dev 62.5 Mcg IH 03/29/17 Reported Advair 500-50 Diskus (Fluticasone/Salmeterol) 1 Each Disk.w.dev 1 Inh IH BID 03/29/17 Reported Impression . 1. Dyspnea with cough secondary to extensive community-acquired left lower lobe pneumonia/ underlying COPD 2. Chest pain, pleuritic type from extensive left lower lobe pneumonia. 3. 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 4. Abnormal CT chest with extensive pneumonia involving the left lower lobe and partially calcified density RLL due to previous talc, also mild patchy infiltrate in the right lower lobe consistent with pneumonia. she will need a follow up ct chest in 4-6 weeks to r/o any mass in RLL.There was tiny pleural effusion. Plan . 1. BS antibiotic coverage to cover for anaerobic gram-negative and gram-positive organisms due to the severity of pneumonia. 2. Follow white cell count. 3. Follow sputum and blood cultures. 4. repeat ct chest in 4-6 weeks 5. Taper steroids. 6. Bronchodilators. 7. Continue present oxygen. 8. Discussed with RN, will repeat cxr in [facility] Sheikh MD March 31, 2017 10:33
--- NOTE | 2017-03-31 10:51 | PDOC ---
PROGRESS NOTES Chief Complaint Chief Complaint CC: SOB 1. Acute on chronic respiratory failure present on admission: On supplemental oxygen, Echo NORMAL EF 2. Community-acquired pneumonia.: On IV Levaquin, vancomycin, Zosyn, follow blood cx, 3. pleuritic chest pain due to Pneumonia 4. Chronic obstructive pulmonary disease, chronic with emphysema. : iv solumedrol with periodic nebulizations, 5. Anxiety.: prn Ativan 6. Hypokalemia : Replaced 7. HTN: stable, continue current dose , prn hydralazine History of Present Illness History of Present Illness sob with activity no fever no chills weak in appearance. Vitals Vitals Vital Signs Date Time Temp Pulse Resp B/P (MAP) Pulse Ox O2 Delivery O2 Flow Rate FiO2 03/31/17 09:11 99 Nasal Cannula 3.0 03/31/17 08:28 87 139/62 03/31/17 06:14 98.1 22 98.1 Physical Exam General: Alert, Oriented X3, Cooperative, moderate distress Heart: Regular rate (SR), Normal S1, Normal S2, Other (distant heart sounds) Lungs: Other (decrease bs left base) Abdomen: Other (firm abdomen with tenderness upon palpation) Skin: No breakdown, No significant lesion Labs LABS Laboratory Tests Test 03/31/17 00:35 Vancomycin Level Trough 6.6 mcg/mL (10.0-20.0) Vancomycin Last Dose Date 03/30/17 Vancomycin Last Dose Time 1300 Assessment and Plan Assessmemt and Plan Problems Medical Problems: (1) Community acquired pneumonia Status: Acute (2) COPD (chronic obstructive pulmonary disease) Status: Acute (3) Sepsis Status: Acute Problems: Comment Review of Relevant I have reviewed the following items henrry (where applicable) has been applied. Labs Laboratory Tests Test 03/29/17 11:30 03/29/17 23:45 03/30/17 03:26 03/31/17 00:35 Troponin I Quantitative < 0.017 ng/mL (0.000-0.055) Urine Collection Type Unknown Urine Color Yellow Urine Clarity Clear Urine pH 5.5 Urine Specific [place] 1.020 Urine Protein Negative mg/dL (NEG-TRACE) Urine Glucose (UA) 250 mg/dL (NEG) Urine Ketones (Stick) Trace mg/dL (NEG) Urine Blood Negative (NEG) Urine Nitrite Negative (NEG) Urine Bilirubin Negative (NEG) Urine Urobilinogen Dipstick 0.2 mg/dL (0.2 mg/dL) Urine Leukocyte Esterase Negative (NEG) Urine RBC Occ /HPF (0-2) Urine WBC Occ /HPF (0-4) Urine Squamous Epithelial Cells Few /LPF Urine Bacteria 0 /HPF (0-FEW) White Blood Count 23.4 x10^3/uL (4.0-11.0) Red Blood Count 3.55 x10^6/uL (3.50-5.40) Hemoglobin 10.7 g/dL (12.0-15.5) Hematocrit 32.1 % (36.0-47.0) Mean Corpuscular Volume 90 fL (79-100) Mean Corpuscular Hemoglobin 30 pg (25-35) Mean Corpuscular Hemoglobin Concent 33 g/dL (31-37) Red Cell Distribution Width 13.7 % (11.5-14.5) Platelet Count 228 x10^3/uL (140-400) Neutrophils (%) (Auto) 93 % (31-73) Lymphocytes (%) (Auto) 3 % (24-48) Monocytes (%) (Auto) 4 % (0-9) Eosinophils (%) (Auto) 0 % (0-3) Basophils (%) (Auto) 0 % (0-3) Neutrophils # (Auto) 21.7 x10^3uL (1.8-7.7) Lymphocytes # (Auto) 0.7 x10^3/uL (1.0-4.8) Monocytes # (Auto) 1.0 x10^3/uL (0.0-1.1) Eosinophils # (Auto) 0.0 x10^3/uL (0.0-0.7) Basophils # (Auto) 0.0 x10^3/uL (0.0-0.2) Sodium Level 143 mmol/L (136-145) Potassium Level 3.2 mmol/L (3.5-5.1) Chloride Level 110 mmol/L (98-107) Carbon Dioxide Level 27 mmol/L (21-32) Anion Gap 6 (6-14) Blood Urea Nitrogen 11 mg/dL (7-20) Creatinine 0.6 mg/dL (0.6-1.0) Estimated GFR (Cockcroft-Gault) 102.3 Glucose Level 186 mg/dL (70-99) Calcium Level 7.8 mg/dL (8.5-10.1) Vancomycin Level Trough 6.6 mcg/mL (10.0-20.0) Vancomycin Last Dose Date 03/30/17 Vancomycin Last Dose Time 1300 Laboratory Tests Test 03/31/17 00:35 Vancomycin Level Trough 6.6 mcg/mL (10.0-20.0) Vancomycin Last Dose Date 03/30/17 Vancomycin Last Dose Time 1300 Microbiology 03/29/17 Blood Culture - Preliminary, Resulted NO GROWTH AFTER 2 DAYS Medications Current Medications Sodium Chloride 1,000 ml @ 675 mls/hr Q1H29M IV Last administered on 05:35; Start 03/29/17 at 03:45; Stop 03/29/17 at 05:44; Status DC Fentanyl Citrate (Fentanyl 2ml Vial) 50 mcg PRN Q15MIN PRN IV PAIN GREATER THAN 3/10 Last administered on 03/29/17 04:31; Start 03/29/17 at 03:45; Stop at 03:44; Status DC Ondansetron HCl (Zofran) 4 mg 1X ONCE IV Last administered on 03/29/17 03:56 ; Start 03/29/17 at 03:45; Stop 03/29/17 at 03:46; Status DC Ondansetron HCl (Zofran) 4 mg PRN Q8HRS PRN IV NAUSEA/VOMITING; Start 03/29/17 at 05:00; Stop 03/30/17 at 04:59; Status DC Fentanyl Citrate (Fentanyl 2ml Vial) 50 mcg PRN Q2HR PRN IV PAIN Last administered on 03/30/17 03:52; Start 03/29/17 at 05:00; Stop 03/30/17 at 04:59 ; Status DC Sodium Chloride 1,000 ml @ 125 mls/hr Q8H IV Last administered on 03/30/17 00 :24; Start 03/29/17 at 05:00; Stop 03/30/17 at 04:59; Status DC Acetaminophen (Tylenol) 650 mg PRN Q4HRS PRN PO FEVER; Start 03/29/17 at 04:45 ; Stop 03/30/17 at 04:44; Status DC Albuterol/ Ipratropium (Duoneb) 3 ml RTQID NEB Last administered on 03/29/17 08:19; Start 03/29/17 at 08:00; Stop 03/29/17 at 10:27; Status DC Levofloxacin/ Dextrose (Levaquin Per Pharmacy) 1 each PRN DAILY PRN MC SEE COMMENTS; Start 03/29/17 at 05:00 Levofloxacin/ Dextrose 100 ml @ 100 mls/hr Q24H IV Last administered on 05:00; Start 03/29/17 at 05:00 Iohexol (Omnipaque 240 Mg/ml) 50 ml 1X ONCE PO Last administered on 03/29/17 09:15; Start 03/29/17 at 09:15; Stop 03/29/17 at 09:16; Status DC Iohexol (Omnipaque 300 Mg/ml) 75 ml 1X ONCE IV Last administered on 03/29/17 09:15; Start 03/29/17 at 09:15; Stop 03/29/17 at 09:16; Status DC Info (Do NOT chart on this entry -- for MONITORING) 1 each PRN DAILY PRN MC SEE COMMENTS; Start 03/29/17 at 09:15; Stop 03/31/17 at 09:14; Status DC Metronidazole 100 ml @ 100 mls/hr Q8HRS IV ; Start 03/29/17 at 10:00; Stop at 14:32; Status DC Acetaminophen (Tylenol) 325 mg PRN Q6HRS PRN PO MILD PAIN / TEMP Last administered on 03/31/17 06:18; Start 03/29/17 at 09:15 Acetaminophen/ Hydrocodone Bitart (Lortab 5/325) 1 tab PRN Q6HRS PRN PO MODERATE TO SEVERE PAIN Last administered on 03/30/17 11:47; Start 03/29/17 at 09:15 Hydralazine HCl (Apresoline) 10 mg PRN Q4HRS PRN IVP ELEVATED BP, SEE COMMENTS ; Start 03/29/17 at 09:15 Ondansetron HCl (Zofran) 4 mg PRN Q8HRS PRN IV NAUSEA/VOMITING; Start 03/29/17 at 09:15 Albuterol Sulfate (Ventolin Neb Soln) 2.5 mg PRN Q4HRS PRN NEB SHORTNESS OF BREATH; Start 03/29/17 at 09:15 Alprazolam (Xanax) 0.5 mg TID PO Last administered on 03/31/17 08:28; Start at 14:00 Aspirin (Ecotrin) 81 mg DAILYWBKFT PO Last administered on 03/31/17 08:28; Start 03/30/17 at 08:00 Ipratropium [place] (Atrovent) 0.2 mg RTQID NEB ; Start 03/29/17 at 12:00; Status UNV Non-Formulary Medication 2 puff QID INH ; Start 03/29/17 at 13:00; Status UNV Non-Formulary Medication 70 mg WEEKLY PO ; Start 04/05/17 at 09:00; Status UNV Budesonide (Pulmicort) 0.5 mg RTBID NEB Last administered on 03/31/17 09:06; Start 03/29/17 at 20:00 Albuterol/ Ipratropium (Duoneb) 3 ml RTQID NEB Last administered on 03/30/17 08:13; Start 03/29/17 at 12:00; Stop 03/30/17 at 09:14; Status DC Verapamil HCl ([place]) 40 mg BID PO Last administered on 03/31/17 08:28; Start 03/29/17 at 10:30 Methylprednisolone Sodium Succinate (SOLU-Medrol 40MG VIAL) 40 mg Q8HRS IV Last administered on 03/31/17 06:12; Start 03/29/17 at 14:00; Stop 03/31/17 at 13:59 Albuterol/ Ipratropium (Duoneb) 3 ml RTQID PRN NEB sob; Start 03/29/17 at 10:30 ; Status UNV Ibuprofen (Motrin) 200 mg PRN Q6HRS PRN PO INFLAMMATION Last administered on 12:49; Start 03/29/17 at 10:30 Piperacillin Sod/ Tazobactam Sod (Zosyn Per Pharmacy) 1 each PRN DAILY PRN MC SEE COMMENTS; Start 03/29/17 at 12:00 Vancomycin HCl (Vanco Per Pharmacy) 1 each PRN DAILY PRN MC SEE COMMENTS Last administered on 03/31/17 02:22; Start 03/29/17 at 12:00 Vancomycin HCl 1.25 gm/Sodium Chloride 250 ml @ 166.667 mls/hr 1X ONCE IV Last administered on 03/29/17 14:55; Start 03/29/17 at 12:00; Stop 03/29/17 at 13:29; Status DC Piperacillin Sod/ Tazobactam Sod 4.5 gm/Sodium Chloride 100 ml @ 200 mls/hr Q6HRS IV Last administered on 03/31/17 05:39; Start 03/29/17 at 12:00 Vancomycin HCl 750 mg/Sodium Chloride 250 ml @ 250 mls/hr Q12H IV Last administered on 03/31/17 01:24; Start 03/30/17 at 01:00; Stop 03/31/17 at 02:04 ; Status DC Vancomycin HCl 1 each 1X ONCE MC Last administered on 03/31/17 00:30; Start 03/31/17 at 00:30; Stop 03/31/17 at 00:31; Status DC Atorvastatin Calcium (Lipitor) 20 mg QHS PO Last administered on 03/30/17 20: 40; Start 03/29/17 at 21:00 Potassium Chloride (Klor-Con) 40 meq 1X ONCE PO Last administered on 09:02; Start 03/30/17 at 08:00; Stop 03/30/17 at 08:04; Status DC Vancomycin HCl 1.25 gm/Sodium Chloride 250 ml @ 167 mls/hr Q12H IV Last administered on 03/31/17 09:49; Start 03/31/17 at 09:00 Vancomycin HCl 1 each 1X ONCE MC ; Start 04/01/17 at 08:30; Stop 04/01/17 at 08 :31 Active Scripts Active Reported Ipratropium [place] 0.2 Mg/1 Ml Solution 1 Vial NEB QID Verapamil Er (Verapamil Hcl) 240 Mg Cap24h.pel 40 Mg PO BID Ventolin Hfa Inhaler (Albuterol Sulfate) 18 Gm Hfa.aer.ad 2 Puff INH QID Alprazolam 0.5 Mg Tablet 1 Tab PO TID Fosamax (Alendronate Sodium) 70 Mg Tablet 70 Mg PO WEEKLY Aspir 81 (Aspirin) 81 Mg Tablet.dr 81 Mg PO DAILY Combivent Respimat Inhal (Ipratropium/Albuterol Sulfate) 4 Gm Aer.w.adap 2 Inh IH QID Incruse Ellipta (Umeclidinium [place]) 62.5 Mcg Blst.w.dev 62.5 Mcg IH Advair 500-50 Diskus (Fluticasone/Salmeterol) 1 Each Disk.w.dev 1 Inh IH BID Vitals/I & O Vital Sign - Last 24 Hours 03/30/17 03/30/17 03/30/17 03/30/17 11:30 11:47 12:47 14:52 Temp 98.0 98.0 98.0 98.0 Pulse 99 89 Resp 22 22 20 20 B/P (MAP) 108/57 (74) 107/61 (76) Pulse Ox 94 98 O2 Delivery Nasal Cannula Nasal Cannula Nasal Cannula Nasal Cannula O2 Flow Rate 3.0 3.0 3.0 3.0 03/30/17 03/30/17 03/30/17 03/30/17 19:12 19:42 20:39 23:16 Temp 98.0 97.9 98.0 97.9 Pulse 86 86 88 Resp 18 18 B/P (MAP) 109/55 (73) 109/55 110/63 (79) Pulse Ox 99 98 O2 Delivery Nasal Cannula Nasal Cannula Nasal Cannula O2 Flow Rate 2.0 2.0 2.0 03/31/17 03/31/17 03/31/17 03/31/17 03:28 06:14 08:00 08:28 Temp 98.1 98.1 98.1 98.1 Pulse 90 93 87 Resp 16 22 B/P (MAP) 122/82 (95) 139/62 (87) 139/62 Pulse Ox 99 99 O2 Delivery Nasal Cannula Nasal Cannula Nasal Cannula O2 Flow Rate 2.0 2.0 2.0 03/31/17 03/31/17 09:06 09:11 Pulse Ox 96 99 O2 Delivery Nasal Cannula Nasal Cannula O2 Flow Rate 2.0 3.0 Intake and Output 03/30/17 03/30/17 03/31/17 14:59 22:59 06:59 Intake Total 550 ml 550 ml Output Total 700 ml 325 ml Balance -150 ml 225 ml LARY COTA MD March 31, 2017 10:51
[2017-03-31 11:30] VITALS: BP 123/65
[2017-03-31 15:09] VITALS: BP 122/67
[2017-03-31] MEDS: HYDROcodone/APAP 5/325MG 1 TAB TABLET PO PRN (18:16)
[2017-03-31 18:55] VITALS: BP 144/74
[2017-03-31] MEDS: ATORVASTATIN CALCIUM 20 MG TABLET PO SCH (21:09)
[2017-03-31] MEDS: ENOXAPARIN 40 MG/0.4 ML SYRINGE. SQ SCH (21:10)
[2017-03-31 23:07] VITALS: BP 94/59
[2017-04-01] MEDS: PIPERACILLIN/TAZOBACTAM 4.5 GM in IV NORMAL SALINE 100ML 100 ML IV SCH ×4 (00:18→18:13)
[2017-04-01 03:30] VITALS: BP 126/75
[2017-04-01] MEDS: HYDROcodone/APAP 5/325MG 1 TAB TABLET PO PRN ×3 (04:19→20:20)
[2017-04-01 07:15] VITALS: BP 132/77
--- NOTE | 2017-04-01 07:33 | RAD ---
Portable chest, 04/01/2017: History: Follow-up pneumonia, increased shortness of breath Comparison is made to a study from 03/29/2017. The heart size and pulmonary vascularity are normal. There has been considerable interval progression of the left basilar infiltrate compatible with worsening pneumonia. There is increasing blunting of the left lateral costophrenic angle compatible with associated pleural fluid. There is an unchanged calcific scar in the right mid chest laterally. There are additional mild scattered fibrotic changes in both lungs. No acute right lung infiltrate is seen. IMPRESSION: Worsening left basilar infiltrate compatible with pneumonia, with a small associated left pleural effusion.
[2017-04-01] MEDS: BUDESONIDE 0.5 MG/2 ML NEBU. NEB SCH ×2 (07:42→19:27)
[2017-04-01 08:41] LABS: CALCIUM 8.3 mg/dL (8.5-10.1); CREATININE 0.6 mg/dL (0.6-1.0); GFR 102.3; POTASSIUM 4.1 mmol/L (3.5-5.1)
[2017-04-01] MEDS: ASPIRIN ENTERIC COATED 81 MG TABLET.DR. PO SCH (08:50)
[2017-04-01] MEDS: predniSONE 20 MG TABLET PO SCH (08:51)
[2017-04-01] MEDS: ALPRAZolam 0.5 MG TABLET PO SCH ×3 (08:51→20:22)
[2017-04-01] MEDS: VERAPAMIL 40 MG TABLET. PO SCH ×2 (08:51→20:22)
[2017-04-01 08:52] LABS: BASO % 0 % (0-3); EOS % 0 % (0-3); HEMATOCRIT 35.9 % (36.0-47.0); HEMOGLOBIN 11.5 g/dL (12.0-15.5); LYMPH # 1.6 x10^3/uL (1.0-4.8); LYMPH % 8 % (24-48); MEAN CORPUSCULAR HEMOGLOBIN 29 pg (25-35); MEAN CORPUSCULAR HGB CONC 32 g/dL (31-37); MEAN CORPUSCULAR VOLUME 91 fL (79-100); MONO % 5 % (0-9); NEUT % 86 % (31-73); PLATELET COUNT 320 x10^3/uL (140-400); RED BLOOD COUNT 3.94 x10^6/uL (3.50-5.40); RED CELL DISTRIBUTION WIDTH 14.2 % (11.5-14.5); WHITE BLOOD COUNT 20.1 x10^3/uL (4.0-11.0)
[2017-04-01] MEDS: VANCOMYCIN 1.25 GM in IV NORMAL SALINE 250ML 250 ML IV SCH ×2 (08:52→20:22)
[2017-04-01] MEDS: VANCOMYCIN PER PHARMACY MC PRN ×2 (09:58→10:01)
--- NOTE | 2017-04-01 10:00 | PDOC ---
PROGRESS NOTES Chief Complaint Chief Complaint CC: SOB 1. Acute on chronic respiratory failure present on admission: On supplemental oxygen, Echo NORMAL EF 2. Worsening pneumonia.: On IV Levaquin, vancomycin, Zosyn, follow blood cx, 3. Pleuritic chest pain due to Pneumonia 4. Chronic obstructive pulmonary disease, chronic with emphysema. : iv solumedrol with periodic nebulizations, 5. Anxiety.: prn Ativan 6. Hypokalemia : Replaced 7. HTN: stable, continue current dose , prn hydralazine 8. Hyperlipidemia: on Statin. History of Present Illness History of Present Illness sob with activity no fever no chills weak in appearance. Vitals Vitals Vital Signs Date Time Temp Pulse Resp B/P (MAP) Pulse Ox O2 Delivery O2 Flow Rate FiO2 04/01/17 08:51 113 04/01/17 08:00 Nasal Cannula 3.0 04/01/17 07:43 97 04/01/17 07:15 98.0 18 132/77 (95) 98.0 Physical Exam General: Alert, Oriented X3, Cooperative, moderate distress Heart: Regular rate (SR), Normal S1, Normal S2, Other (distant heart sounds) Lungs: Other (decrease bs left base) Abdomen: Other (firm abdomen with tenderness upon palpation) Skin: No breakdown, No significant lesion Labs LABS Laboratory Tests Test 04/01/17 08:20 White Blood Count 20.1 x10^3/uL (4.0-11.0) Red Blood Count 3.94 x10^6/uL (3.50-5.40) Hemoglobin 11.5 g/dL (12.0-15.5) Hematocrit 35.9 % (36.0-47.0) Mean Corpuscular Volume 91 fL (79-100) Mean Corpuscular Hemoglobin 29 pg (25-35) Mean Corpuscular Hemoglobin Concent 32 g/dL (31-37) Red Cell Distribution Width 14.2 % (11.5-14.5) Platelet Count 320 x10^3/uL (140-400) Neutrophils (%) (Auto) 86 % (31-73) Lymphocytes (%) (Auto) 8 % (24-48) Monocytes (%) (Auto) 5 % (0-9) Eosinophils (%) (Auto) 0 % (0-3) Basophils (%) (Auto) 0 % (0-3) Neutrophils # (Auto) 17.4 x10^3uL (1.8-7.7) Lymphocytes # (Auto) 1.6 x10^3/uL (1.0-4.8) Monocytes # (Auto) 1.1 x10^3/uL (0.0-1.1) Eosinophils # (Auto) 0.0 x10^3/uL (0.0-0.7) Basophils # (Auto) 0.0 x10^3/uL (0.0-0.2) Sodium Level 143 mmol/L (136-145) Potassium Level 4.1 mmol/L (3.5-5.1) Chloride Level 108 mmol/L (98-107) Carbon Dioxide Level 33 mmol/L (21-32) Anion Gap 2 (6-14) Blood Urea Nitrogen 13 mg/dL (7-20) Creatinine 0.6 mg/dL (0.6-1.0) Estimated GFR (Cockcroft-Gault) 102.3 Glucose Level 101 mg/dL (70-99) Calcium Level 8.3 mg/dL (8.5-10.1) Vancomycin Level Trough 12.0 mcg/mL (10.0-20.0) Vancomycin Last Dose Date 03/31/17 Vancomycin Last Dose Time 2100 Assessment and Plan Assessmemt and Plan Problems Medical Problems: (1) Community acquired pneumonia Status: Acute (2) COPD (chronic obstructive pulmonary disease) Status: Acute (3) Sepsis Status: Acute Problems: Comment Review of Relevant I have reviewed the following items henrry (where applicable) has been applied. Labs Laboratory Tests Test 03/31/17 00:35 04/01/17 08:20 Vancomycin Level Trough 6.6 mcg/mL (10.0-20.0) 12.0 mcg/mL (10.0-20.0) Vancomycin Last Dose Date 03/30/17 03/31/17 Vancomycin Last Dose Time 1300 2100 White Blood Count 20.1 x10^3/uL (4.0-11.0) Red Blood Count 3.94 x10^6/uL (3.50-5.40) Hemoglobin 11.5 g/dL (12.0-15.5) Hematocrit 35.9 % (36.0-47.0) Mean Corpuscular Volume 91 fL (79-100) Mean Corpuscular Hemoglobin 29 pg (25-35) Mean Corpuscular Hemoglobin Concent 32 g/dL (31-37) Red Cell Distribution Width 14.2 % (11.5-14.5) Platelet Count 320 x10^3/uL (140-400) Neutrophils (%) (Auto) 86 % (31-73) Lymphocytes (%) (Auto) 8 % (24-48) Monocytes (%) (Auto) 5 % (0-9) Eosinophils (%) (Auto) 0 % (0-3) Basophils (%) (Auto) 0 % (0-3) Neutrophils # (Auto) 17.4 x10^3uL (1.8-7.7) Lymphocytes # (Auto) 1.6 x10^3/uL (1.0-4.8) Monocytes # (Auto) 1.1 x10^3/uL (0.0-1.1) Eosinophils # (Auto) 0.0 x10^3/uL (0.0-0.7) Basophils # (Auto) 0.0 x10^3/uL (0.0-0.2) Sodium Level 143 mmol/L (136-145) Potassium Level 4.1 mmol/L (3.5-5.1) Chloride Level 108 mmol/L (98-107) Carbon Dioxide Level 33 mmol/L (21-32) Anion Gap 2 (6-14) Blood Urea Nitrogen 13 mg/dL (7-20) Creatinine 0.6 mg/dL (0.6-1.0) Estimated GFR (Cockcroft-Gault) 102.3 Glucose Level 101 mg/dL (70-99) Calcium Level 8.3 mg/dL (8.5-10.1) Laboratory Tests Test 04/01/17 08:20 White Blood Count 20.1 x10^3/uL (4.0-11.0) Red Blood Count 3.94 x10^6/uL (3.50-5.40) Hemoglobin 11.5 g/dL (12.0-15.5) Hematocrit 35.9 % (36.0-47.0) Mean Corpuscular Volume 91 fL (79-100) Mean Corpuscular Hemoglobin 29 pg (25-35) Mean Corpuscular Hemoglobin Concent 32 g/dL (31-37) Red Cell Distribution Width 14.2 % (11.5-14.5) Platelet Count 320 x10^3/uL (140-400) Neutrophils (%) (Auto) 86 % (31-73) Lymphocytes (%) (Auto) 8 % (24-48) Monocytes (%) (Auto) 5 % (0-9) Eosinophils (%) (Auto) 0 % (0-3) Basophils (%) (Auto) 0 % (0-3) Neutrophils # (Auto) 17.4 x10^3uL (1.8-7.7) Lymphocytes # (Auto) 1.6 x10^3/uL (1.0-4.8) Monocytes # (Auto) 1.1 x10^3/uL (0.0-1.1) Eosinophils # (Auto) 0.0 x10^3/uL (0.0-0.7) Basophils # (Auto) 0.0 x10^3/uL (0.0-0.2) Sodium Level 143 mmol/L (136-145) Potassium Level 4.1 mmol/L (3.5-5.1) Chloride Level 108 mmol/L (98-107) Carbon Dioxide Level 33 mmol/L (21-32) Anion Gap 2 (6-14) Blood Urea Nitrogen 13 mg/dL (7-20) Creatinine 0.6 mg/dL (0.6-1.0) Estimated GFR (Cockcroft-Gault) 102.3 Glucose Level 101 mg/dL (70-99) Calcium Level 8.3 mg/dL (8.5-10.1) Vancomycin Level Trough 12.0 mcg/mL (10.0-20.0) Vancomycin Last Dose Date 03/31/17 Vancomycin Last Dose Time 2100 Microbiology 03/29/17 Blood Culture - Preliminary, Resulted NO GROWTH AFTER 3 DAYS Medications Current Medications Sodium Chloride 1,000 ml @ 675 mls/hr Q1H29M IV Last administered on 05:35; Start 03/29/17 at 03:45; Stop 03/29/17 at 05:44; Status DC Fentanyl Citrate (Fentanyl 2ml Vial) 50 mcg PRN Q15MIN PRN IV PAIN GREATER THAN 3/10 Last administered on 03/29/17 04:31; Start 03/29/17 at 03:45; Stop at 03:44; Status DC Ondansetron HCl (Zofran) 4 mg 1X ONCE IV Last administered on 03/29/17 03:56 ; Start 03/29/17 at 03:45; Stop 03/29/17 at 03:46; Status DC Ondansetron HCl (Zofran) 4 mg PRN Q8HRS PRN IV NAUSEA/VOMITING; Start 03/29/17 at 05:00; Stop 03/30/17 at 04:59; Status DC Fentanyl Citrate (Fentanyl 2ml Vial) 50 mcg PRN Q2HR PRN IV PAIN Last administered on 03/30/17 03:52; Start 03/29/17 at 05:00; Stop 03/30/17 at 04:59 ; Status DC Sodium Chloride 1,000 ml @ 125 mls/hr Q8H IV Last administered on 03/30/17 00 :24; Start 03/29/17 at 05:00; Stop 03/30/17 at 04:59; Status DC Acetaminophen (Tylenol) 650 mg PRN Q4HRS PRN PO FEVER; Start 03/29/17 at 04:45 ; Stop 03/30/17 at 04:44; Status DC Albuterol/ Ipratropium (Duoneb) 3 ml RTQID NEB Last administered on 03/29/17 08:19; Start 03/29/17 at 08:00; Stop 03/29/17 at 10:27; Status DC Levofloxacin/ Dextrose (Levaquin Per Pharmacy) 1 each PRN DAILY PRN MC SEE COMMENTS; Start 03/29/17 at 05:00 Levofloxacin/ Dextrose 100 ml @ 100 mls/hr Q24H IV Last administered on 04:20; Start 03/29/17 at 05:00 Iohexol (Omnipaque 240 Mg/ml) 50 ml 1X ONCE PO Last administered on 03/29/17 09:15; Start 03/29/17 at 09:15; Stop 03/29/17 at 09:16; Status DC Iohexol (Omnipaque 300 Mg/ml) 75 ml 1X ONCE IV Last administered on 03/29/17 09:15; Start 03/29/17 at 09:15; Stop 03/29/17 at 09:16; Status DC Info (Do NOT chart on this entry -- for MONITORING) 1 each PRN DAILY PRN MC SEE COMMENTS; Start 03/29/17 at 09:15; Stop 03/31/17 at 09:14; Status DC Metronidazole 100 ml @ 100 mls/hr Q8HRS IV ; Start 03/29/17 at 10:00; Stop at 14:32; Status DC Acetaminophen (Tylenol) 325 mg PRN Q6HRS PRN PO MILD PAIN / TEMP Last administered on 03/31/17 06:18; Start 03/29/17 at 09:15 Acetaminophen/ Hydrocodone Bitart (Lortab 5/325) 1 tab PRN Q6HRS PRN PO MODERATE TO SEVERE PAIN Last administered on 04/01/17 04:19; Start 03/29/17 at 09:15 Hydralazine HCl (Apresoline) 10 mg PRN Q4HRS PRN IVP ELEVATED BP, SEE COMMENTS ; Start 03/29/17 at 09:15 Ondansetron HCl (Zofran) 4 mg PRN Q8HRS PRN IV NAUSEA/VOMITING; Start 03/29/17 at 09:15 Albuterol Sulfate (Ventolin Neb Soln) 2.5 mg PRN Q4HRS PRN NEB SHORTNESS OF BREATH Last administered on 04/01/17 07:43; Start 03/29/17 at 09:15 Alprazolam (Xanax) 0.5 mg TID PO Last administered on 04/01/17 08:51; Start at 14:00 Aspirin (Ecotrin) 81 mg DAILYWBKFT PO Last administered on 04/01/17 08:50; Start 03/30/17 at 08:00 Ipratropium [place] (Atrovent) 0.2 mg RTQID NEB ; Start 03/29/17 at 12:00; Status UNV Non-Formulary Medication 2 puff QID INH ; Start 03/29/17 at 13:00; Status UNV Non-Formulary Medication 70 mg WEEKLY PO ; Start 04/05/17 at 09:00; Status UNV Budesonide (Pulmicort) 0.5 mg RTBID NEB Last administered on 04/01/17 07:42; Start 03/29/17 at 20:00 Albuterol/ Ipratropium (Duoneb) 3 ml RTQID NEB Last administered on 03/30/17 08:13; Start 03/29/17 at 12:00; Stop 03/30/17 at 09:14; Status DC Verapamil HCl (Calan) 40 mg BID PO Last administered on 04/01/17 08:51; Start 03/29/17 at 10:30 Methylprednisolone Sodium Succinate (SOLU-Medrol 40MG VIAL) 40 mg Q8HRS IV Last administered on 03/31/17 06:12; Start 03/29/17 at 14:00; Stop 03/31/17 at 10:52; Status DC Albuterol/ Ipratropium (Duoneb) 3 ml RTQID PRN NEB sob; Start 03/29/17 at 10:30 ; Status UNV Ibuprofen (Motrin) 200 mg PRN Q6HRS PRN PO INFLAMMATION Last administered on 12:49; Start 03/29/17 at 10:30 Piperacillin Sod/ Tazobactam Sod (Zosyn Per Pharmacy) 1 each PRN DAILY PRN MC SEE COMMENTS; Start 03/29/17 at 12:00 Vancomycin HCl (Vanco Per Pharmacy) 1 each PRN DAILY PRN MC SEE COMMENTS Last administered on 03/31/17 02:22; Start 03/29/17 at 12:00 Vancomycin HCl 1.25 gm/Sodium Chloride 250 ml @ 166.667 mls/hr 1X ONCE IV Last administered on 03/29/17 14:55; Start 03/29/17 at 12:00; Stop 03/29/17 at 13:29; Status DC Piperacillin Sod/ Tazobactam Sod 4.5 gm/Sodium Chloride 100 ml @ 200 mls/hr Q6HRS IV Last administered on 04/01/17 06:03; Start 03/29/17 at 12:00 Vancomycin HCl 750 mg/Sodium Chloride 250 ml @ 250 mls/hr Q12H IV Last administered on 03/31/17 01:24; Start 03/30/17 at 01:00; Stop 03/31/17 at 02:04 ; Status DC Vancomycin HCl 1 each 1X ONCE MC Last administered on 03/31/17 00:30; Start 03/31/17 at 00:30; Stop 03/31/17 at 00:31; Status DC Atorvastatin Calcium (Lipitor) 20 mg QHS PO Last administered on 03/31/17 21: 09; Start 03/29/17 at 21:00 Potassium Chloride (Klor-Con) 40 meq 1X ONCE PO Last administered on 09:02; Start 03/30/17 at 08:00; Stop 03/30/17 at 08:04; Status DC Vancomycin HCl 1.25 gm/Sodium Chloride 250 ml @ 167 mls/hr Q12H IV Last administered on 04/01/17 08:52; Start 03/31/17 at 09:00 Vancomycin HCl 1 each 1X ONCE MC Last administered on 04/01/17 08:30; Start 04/01/17 at 08:30; Stop 04/01/17 at 08:31; Status DC Prednisone (Prednisone) 30 mg DAILY PO ; Start 04/03/17 at 09:00; Stop 04/06/17 at 08:59 Prednisone (Prednisone) 20 mg DAILY PO ; Start 04/06/17 at 09:00; Stop 04/09/17 at 08:59 Prednisone (Prednisone) 10 mg DAILY PO ; Start 04/09/17 at 09:00; Stop 04/12/17 at 08:59 Prednisone (Prednisone) 5 mg DAILY PO ; Start 04/12/17 at 09:00; Stop 04/15/17 at 08:59 Prednisone (Prednisone) 40 mg DAILY PO Last administered on 04/01/17 08:51; Start 04/01/17 at 09:00; Stop 04/03/17 at 08:59 Enoxaparin Sodium (Lovenox 40mg Syringe) 40 mg QHS SQ Last administered on 03/31 21:10; Start 03/31/17 at 21:00 Active Scripts Active Reported Ipratropium [place] 0.2 Mg/1 Ml Solution 1 Vial NEB QID Verapamil Er (Verapamil Hcl) 240 Mg Cap24h.pel 40 Mg PO BID Ventolin Hfa Inhaler (Albuterol Sulfate) 18 Gm Hfa.aer.ad 2 Puff INH QID Alprazolam 0.5 Mg Tablet 1 Tab PO TID Fosamax (Alendronate Sodium) 70 Mg Tablet 70 Mg PO WEEKLY Aspir 81 (Aspirin) 81 Mg Tablet.dr 81 Mg PO DAILY Combivent Respimat Inhal (Ipratropium/Albuterol Sulfate) 4 Gm Aer.w.adap 2 Inh IH QID Incruse Ellipta (Umeclidinium [place]) 62.5 Mcg Blst.w.dev 62.5 Mcg IH Advair 500-50 Diskus (Fluticasone/Salmeterol) 1 Each Disk.w.dev 1 Inh IH BID Vitals/I & O Vital Sign - Last 24 Hours 03/31/17 03/31/17 03/31/17 03/31/17 11:30 15:09 18:16 18:55 Temp 98.9 98.9 98.5 98.9 98.9 98.5 Pulse 98 82 90 Resp 22 20 20 18 B/P (MAP) 123/65 (84) 122/67 (85) 144/74 (97) Pulse Ox 98 97 98 O2 Delivery Nasal Cannula Nasal Cannula Nasal Cannula Nasal Cannula O2 Flow Rate 3.0 3.0 3.0 3.0 03/31/17 03/31/17 03/31/17 04/01/17 20:00 21:09 23:07 03:30 Temp 98.8 98.4 98.8 98.4 Pulse 90 67 68 Resp 18 16 B/P (MAP) 144/74 94/59 (71) 126/75 (92) Pulse Ox 95 98 O2 Delivery Nasal Cannula Nasal Cannula Nasal Cannula O2 Flow Rate 3.0 3.0 3.0 04/01/17 04/01/17 04/01/17 04/01/17 04:19 05:19 07:15 07:43 Temp 98.0 98.0 Pulse 73 Resp 18 B/P (MAP) 132/77 (95) Pulse Ox 98 98 97 97 O2 Delivery Nasal Cannula Nasal Cannula Nasal Cannula Nasal Cannula O2 Flow Rate 3.0 3.0 2.0 3.0 04/01/17 04/01/17 08:00 08:51 Pulse 113 O2 Delivery Nasal Cannula O2 Flow Rate 3.0 Intake and Output 03/31/17 03/31/17 04/01/17 15:00 23:00 07:00 Intake Total 1170 ml 300 ml Output Total 700 ml 500 ml Balance 470 ml -200 ml LARY COTA MD April 01, 2017 10:00
[2017-04-01 11:51] VITALS: BP 151/69
--- NOTE | 2017-04-01 12:51 | PDOC ---
Subjective: Subjective: No abd pain, no n/v, no issues stooling. Has no appetite. Objective: Vital Signs: Vital Signs Date Time Temp Pulse Resp B/P (MAP) Pulse Ox O2 Delivery O2 Flow Rate FiO2 04/01/17 11:51 98.0 89 22 151/69 (96) 95 Nasal Cannula 2.0 98.0 Labs: Laboratory Tests Test 04/01/17 08:20 White Blood Count 20.1 x10^3/uL Red Blood Count 3.94 x10^6/uL Hemoglobin 11.5 g/dL Hematocrit 35.9 % Mean Corpuscular Volume 91 fL Mean Corpuscular Hemoglobin 29 pg Mean Corpuscular Hemoglobin Concent 32 g/dL Red Cell Distribution Width 14.2 % Platelet Count 320 x10^3/uL Neutrophils (%) (Auto) 86 % Lymphocytes (%) (Auto) 8 % Monocytes (%) (Auto) 5 % Eosinophils (%) (Auto) 0 % Basophils (%) (Auto) 0 % Neutrophils # (Auto) 17.4 x10^3uL Lymphocytes # (Auto) 1.6 x10^3/uL Monocytes # (Auto) 1.1 x10^3/uL Eosinophils # (Auto) 0.0 x10^3/uL Basophils # (Auto) 0.0 x10^3/uL Sodium Level 143 mmol/L Potassium Level 4.1 mmol/L Chloride Level 108 mmol/L Carbon Dioxide Level 33 mmol/L Anion Gap 2 Blood Urea Nitrogen 13 mg/dL Creatinine 0.6 mg/dL Estimated GFR (Cockcroft-Gault) 102.3 Glucose Level 101 mg/dL Calcium Level 8.3 mg/dL Vancomycin Level Trough 12.0 mcg/mL Vancomycin Last Dose Date 03/31/17 Vancomycin Last Dose Time 2100 PE: GEN: NAD, laying on side in bed LUNGS: decreased/tight HEART: RRR ABD: S/ND/NT NEURO/PSYCH: A & O 3 A/P: CAP, COPD -per pulm Decreased appetite -abd pain, nausea, retching are resolved resolved -no GI history, no previous EGD or colonoscopy -reported a few pounds lost unintentionally before admission -- Will review w/ Dr. Mantilla. She is on prednisone and ibuprofen. ?add H2 marisa/PPI LEANNA AYERS April 01, 2017 12:51
[2017-04-01 15:30] VITALS: BP 109/56
--- NOTE | 2017-04-01 15:57 | PDOC ---
PULMONARY PROGRESS NOTES Subjective still soa not much improved Vitals Vital Signs Date Time Temp Pulse Resp B/P (MAP) Pulse Ox O2 Delivery O2 Flow Rate FiO2 04/01/17 15:30 98.4 75 109/56 (73) 97 Nasal Cannula 3.0 98.4 04/01/17 11:51 22 ROS: No Nausea, No Chest Pain, No Abdominal Pain, No Increase Cough General: Alert, No acute distress Lungs: Wheezing, Other (poor airflow) Cardiovascular: S1, S2 Abdomen: Soft, Non-tender Neuro Exam: Alert, Oriented Extremities: No Edema Skin: Warm Labs Laboratory Tests Test 03/31/17 00:35 04/01/17 08:20 Vancomycin Level Trough 6.6 mcg/mL (10.0-20.0) 12.0 mcg/mL (10.0-20.0) Vancomycin Last Dose Date 03/30/17 03/31/17 Vancomycin Last Dose Time 1300 2100 White Blood Count 20.1 x10^3/uL (4.0-11.0) Red Blood Count 3.94 x10^6/uL (3.50-5.40) Hemoglobin 11.5 g/dL (12.0-15.5) Hematocrit 35.9 % (36.0-47.0) Mean Corpuscular Volume 91 fL (79-100) Mean Corpuscular Hemoglobin 29 pg (25-35) Mean Corpuscular Hemoglobin Concent 32 g/dL (31-37) Red Cell Distribution Width 14.2 % (11.5-14.5) Platelet Count 320 x10^3/uL (140-400) Neutrophils (%) (Auto) 86 % (31-73) Lymphocytes (%) (Auto) 8 % (24-48) Monocytes (%) (Auto) 5 % (0-9) Eosinophils (%) (Auto) 0 % (0-3) Basophils (%) (Auto) 0 % (0-3) Neutrophils # (Auto) 17.4 x10^3uL (1.8-7.7) Lymphocytes # (Auto) 1.6 x10^3/uL (1.0-4.8) Monocytes # (Auto) 1.1 x10^3/uL (0.0-1.1) Eosinophils # (Auto) 0.0 x10^3/uL (0.0-0.7) Basophils # (Auto) 0.0 x10^3/uL (0.0-0.2) Sodium Level 143 mmol/L (136-145) Potassium Level 4.1 mmol/L (3.5-5.1) Chloride Level 108 mmol/L (98-107) Carbon Dioxide Level 33 mmol/L (21-32) Anion Gap 2 (6-14) Blood Urea Nitrogen 13 mg/dL (7-20) Creatinine 0.6 mg/dL (0.6-1.0) Estimated GFR (Cockcroft-Gault) 102.3 Glucose Level 101 mg/dL (70-99) Calcium Level 8.3 mg/dL (8.5-10.1) Laboratory Tests Test 04/01/17 08:20 White Blood Count 20.1 x10^3/uL (4.0-11.0) Red Blood Count 3.94 x10^6/uL (3.50-5.40) Hemoglobin 11.5 g/dL (12.0-15.5) Hematocrit 35.9 % (36.0-47.0) Mean Corpuscular Volume 91 fL (79-100) Mean Corpuscular Hemoglobin 29 pg (25-35) Mean Corpuscular Hemoglobin Concent 32 g/dL (31-37) Red Cell Distribution Width 14.2 % (11.5-14.5) Platelet Count 320 x10^3/uL (140-400) Neutrophils (%) (Auto) 86 % (31-73) Lymphocytes (%) (Auto) 8 % (24-48) Monocytes (%) (Auto) 5 % (0-9) Eosinophils (%) (Auto) 0 % (0-3) Basophils (%) (Auto) 0 % (0-3) Neutrophils # (Auto) 17.4 x10^3uL (1.8-7.7) Lymphocytes # (Auto) 1.6 x10^3/uL (1.0-4.8) Monocytes # (Auto) 1.1 x10^3/uL (0.0-1.1) Eosinophils # (Auto) 0.0 x10^3/uL (0.0-0.7) Basophils # (Auto) 0.0 x10^3/uL (0.0-0.2) Sodium Level 143 mmol/L (136-145) Potassium Level 4.1 mmol/L (3.5-5.1) Chloride Level 108 mmol/L (98-107) Carbon Dioxide Level 33 mmol/L (21-32) Anion Gap 2 (6-14) Blood Urea Nitrogen 13 mg/dL (7-20) Creatinine 0.6 mg/dL (0.6-1.0) Estimated GFR (Cockcroft-Gault) 102.3 Glucose Level 101 mg/dL (70-99) Calcium Level 8.3 mg/dL (8.5-10.1) Vancomycin Level Trough 12.0 mcg/mL (10.0-20.0) Vancomycin Last Dose Date 03/31/17 Vancomycin Last Dose Time 2100 Medications Active Scripts Medications Dose Route/Sig Max Daily Dose Days Date Category Ipratropium [place] 0.2 Mg/1 Ml Solution 1 Vial NEB QID 03/29/17 Reported Verapamil Er (Verapamil Hcl) 240 Mg Cap24h.pel 40 Mg PO BID 03/29/17 Reported Ventolin Hfa Inhaler (Albuterol Sulfate) 18 Gm Hfa.aer.ad 2 Puff INH QID 03/29/17 Reported Alprazolam 0.5 Mg Tablet 1 Tab PO TID 03/29/17 Reported Fosamax (Alendronate Sodium) 70 Mg Tablet 70 Mg PO WEEKLY 03/29/17 Reported Aspir 81 (Aspirin) 81 Mg Tablet.dr 81 Mg PO DAILY 03/29/17 Reported Combivent Respimat Inhal (Ipratropium/Albuterol Sulfate) 4 Gm Aer.w.adap 2 Inh IH QID 03/29/17 Reported Incruse Ellipta (Umeclidinium [place]) 62.5 Mcg Blst.w.dev 62.5 Mcg IH 03/29/17 Reported Advair 500-50 Diskus (Fluticasone/Salmeterol) 1 Each Disk.w.dev 1 Inh IH BID 03/29/17 Reported Impression . 1. Dyspnea with cough secondary to extensive community-acquired left lower lobe pneumonia/ underlying COPD 2. Chest pain, pleuritic type from extensive left lower lobe pneumonia. 3. 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 4. Abnormal CT chest with extensive pneumonia involving the left lower lobe and partially calcified density RLL due to previous talc, also mild patchy infiltrate in the right lower lobe consistent with pneumonia. she will need a follow up ct chest in 4-6 weeks to r/o any mass in RLL.There was tiny pleural effusion. Plan . pt slow to improve, pleurisy is better 1. BS antibiotic coverage to cover for anaerobic gram-negative and gram- positive organisms due to the severity of pneumonia. 2. so far culture is negative 3. repeat cxr worse, will repeat CT to asses for fluid 4. repeat ct chest in 4-6 weeks 5. Taper steroids. 6. Bronchodilators. 7. Continue present oxygen. MOHSEN MANCINI MD April 01, 2017 15:57
--- NOTE | 2017-04-01 16:42 | RAD ---
Indication shortness of air. Noncontrast imaging through the chest was performed and is compared to a contrast examination 3 days earlier. Underlying emphysematous changes are again seen similar to the previous exam. Pleural calcification in the right lung is noted, similar. There is a left pleural effusion which is somewhat larger than on the previous exam. Area of consolidation in the left lower lobe, compatible with pneumonia, persists but appears improved. Imaging through the upper abdomen shows no acute finding. IMPRESSION: Area of consolidation, compatible with pneumonia, in the left lower lobe persists but appears improved. Left pleural effusion is slightly larger than on the previous exam. Again seen are known underlying emphysematous changes. PQRS Compliance Statement: One or more of the following individualized dose reduction techniques were utilized for this examination: 1. Automated exposure control 2. Adjustment of the mA and/or kV according to patient size 3. Use of iterative reconstruction technique
[2017-04-01 19:25] VITALS: BP 122/72
[2017-04-01] MEDS: ATORVASTATIN CALCIUM 20 MG TABLET PO SCH (20:22)
[2017-04-01] MEDS: ENOXAPARIN 40 MG/0.4 ML SYRINGE. SQ SCH (20:23)
[2017-04-01] MEDS ORDERED: ATORVASTATIN CALCIUM 20 MG TABLET PO SCH (21:00)
[2017-04-01 23:35] VITALS: BP 125/66
[2017-04-02] VITALS (10 sets, daily range): BP systolic 124–176; BP diastolic 63–101
[2017-04-02] MEDS: PIPERACILLIN/TAZOBACTAM 4.5 GM in IV NORMAL SALINE 100ML 100 ML IV SCH ×5 (02:06→23:37)
[2017-04-02] MEDS: ACETAMINOPHEN 325 MG TABLET. PO PRN (05:10)
[2017-04-02] MEDS: IBUPROFEN 200 MG TABLET. PO PRN (05:10)
[2017-04-02] MEDS: BUDESONIDE 0.5 MG/2 ML NEBU. NEB SCH ×2 (07:52→19:26)
[2017-04-02] MEDS: ALPRAZolam 0.5 MG TABLET PO SCH ×3 (08:15→20:30)
[2017-04-02] MEDS: VERAPAMIL 40 MG TABLET. PO SCH ×2 (08:15→20:29)
[2017-04-02] MEDS: ASPIRIN ENTERIC COATED 81 MG TABLET.DR. PO SCH (08:15)
[2017-04-02] MEDS: predniSONE 20 MG TABLET PO SCH (08:15)
[2017-04-02] MEDS: HYDROcodone/APAP 5/325MG 1 TAB TABLET PO PRN ×2 (08:16→16:39)
[2017-04-02] MEDS: VANCOMYCIN 1.25 GM in IV NORMAL SALINE 250ML 250 ML IV SCH ×2 (09:02→21:40)
--- NOTE | 2017-04-02 10:05 | PDOC ---
G I PROGRESS NOTE Subjective No GI complaints. Trying to eat, but difficult with pulmonary issues. Objective Others' notes reviewed. Physical Exam Lungs with diminished sounds. RRR Abdomen soft, not tender nor distended. Review of Relevant I have reviewed the following items henrry (where applicable) has been applied. Labs Laboratory Tests Test 04/01/17 08:20 White Blood Count 20.1 x10^3/uL (4.0-11.0) Red Blood Count 3.94 x10^6/uL (3.50-5.40) Hemoglobin 11.5 g/dL (12.0-15.5) Hematocrit 35.9 % (36.0-47.0) Mean Corpuscular Volume 91 fL (79-100) Mean Corpuscular Hemoglobin 29 pg (25-35) Mean Corpuscular Hemoglobin Concent 32 g/dL (31-37) Red Cell Distribution Width 14.2 % (11.5-14.5) Platelet Count 320 x10^3/uL (140-400) Neutrophils (%) (Auto) 86 % (31-73) Lymphocytes (%) (Auto) 8 % (24-48) Monocytes (%) (Auto) 5 % (0-9) Eosinophils (%) (Auto) 0 % (0-3) Basophils (%) (Auto) 0 % (0-3) Neutrophils # (Auto) 17.4 x10^3uL (1.8-7.7) Lymphocytes # (Auto) 1.6 x10^3/uL (1.0-4.8) Monocytes # (Auto) 1.1 x10^3/uL (0.0-1.1) Eosinophils # (Auto) 0.0 x10^3/uL (0.0-0.7) Basophils # (Auto) 0.0 x10^3/uL (0.0-0.2) Sodium Level 143 mmol/L (136-145) Potassium Level 4.1 mmol/L (3.5-5.1) Chloride Level 108 mmol/L (98-107) Carbon Dioxide Level 33 mmol/L (21-32) Anion Gap 2 (6-14) Blood Urea Nitrogen 13 mg/dL (7-20) Creatinine 0.6 mg/dL (0.6-1.0) Estimated GFR (Cockcroft-Gault) 102.3 Glucose Level 101 mg/dL (70-99) Calcium Level 8.3 mg/dL (8.5-10.1) Vancomycin Level Trough 12.0 mcg/mL (10.0-20.0) Vancomycin Last Dose Date 03/31/17 Vancomycin Last Dose Time 2100 Microbiology 03/29/17 Blood Culture - Preliminary, Resulted NO GROWTH AFTER 4 DAYS Medications Current Medications Sodium Chloride 1,000 ml @ 675 mls/hr Q1H29M IV Last administered on 05:35; Start 03/29/17 at 03:45; Stop 03/29/17 at 05:44; Status DC Fentanyl Citrate (Fentanyl 2ml Vial) 50 mcg PRN Q15MIN PRN IV PAIN GREATER THAN 3/10 Last administered on 03/29/17 04:31; Start 03/29/17 at 03:45; Stop at 03:44; Status DC Ondansetron HCl (Zofran) 4 mg 1X ONCE IV Last administered on 03/29/17 03:56 ; Start 03/29/17 at 03:45; Stop 03/29/17 at 03:46; Status DC Ondansetron HCl (Zofran) 4 mg PRN Q8HRS PRN IV NAUSEA/VOMITING; Start 03/29/17 at 05:00; Stop 03/30/17 at 04:59; Status DC Fentanyl Citrate (Fentanyl 2ml Vial) 50 mcg PRN Q2HR PRN IV PAIN Last administered on 03/30/17 03:52; Start 03/29/17 at 05:00; Stop 03/30/17 at 04:59 ; Status DC Sodium Chloride 1,000 ml @ 125 mls/hr Q8H IV Last administered on 03/30/17 00 :24; Start 03/29/17 at 05:00; Stop 03/30/17 at 04:59; Status DC Acetaminophen (Tylenol) 650 mg PRN Q4HRS PRN PO FEVER; Start 03/29/17 at 04:45 ; Stop 03/30/17 at 04:44; Status DC Albuterol/ Ipratropium (Duoneb) 3 ml RTQID NEB Last administered on 03/29/17 08:19; Start 03/29/17 at 08:00; Stop 03/29/17 at 10:27; Status DC Levofloxacin/ Dextrose (Levaquin Per Pharmacy) 1 each PRN DAILY PRN MC SEE COMMENTS; Start 03/29/17 at 05:00 Levofloxacin/ Dextrose 100 ml @ 100 mls/hr Q24H IV Last administered on 05:07; Start 03/29/17 at 05:00 Iohexol (Omnipaque 240 Mg/ml) 50 ml 1X ONCE PO Last administered on 03/29/17 09:15; Start 03/29/17 at 09:15; Stop 03/29/17 at 09:16; Status DC Iohexol (Omnipaque 300 Mg/ml) 75 ml 1X ONCE IV Last administered on 03/29/17 09:15; Start 03/29/17 at 09:15; Stop 03/29/17 at 09:16; Status DC Info (Do NOT chart on this entry -- for MONITORING) 1 each PRN DAILY PRN MC SEE COMMENTS; Start 03/29/17 at 09:15; Stop 03/31/17 at 09:14; Status DC Metronidazole 100 ml @ 100 mls/hr Q8HRS IV ; Start 03/29/17 at 10:00; Stop at 14:32; Status DC Acetaminophen (Tylenol) 325 mg PRN Q6HRS PRN PO MILD PAIN / TEMP Last administered on 04/02/17 05:10; Start 03/29/17 at 09:15 Acetaminophen/ Hydrocodone Bitart (Lortab 5/325) 1 tab PRN Q6HRS PRN PO MODERATE TO SEVERE PAIN Last administered on 04/02/17 08:16; Start 03/29/17 at 09:15 Hydralazine HCl (Apresoline) 10 mg PRN Q4HRS PRN IVP ELEVATED BP, SEE COMMENTS ; Start 03/29/17 at 09:15 Ondansetron HCl (Zofran) 4 mg PRN Q8HRS PRN IV NAUSEA/VOMITING; Start 03/29/17 at 09:15 Albuterol Sulfate (Ventolin Neb Soln) 2.5 mg PRN Q4HRS PRN NEB SHORTNESS OF BREATH Last administered on 04/01/17 07:43; Start 03/29/17 at 09:15 Alprazolam (Xanax) 0.5 mg TID PO Last administered on 04/02/17 08:15; Start at 14:00 Aspirin (Ecotrin) 81 mg DAILYWBKFT PO Last administered on 04/02/17 08:15; Start 03/30/17 at 08:00 Ipratropium [place] (Atrovent) 0.2 mg RTQID NEB ; Start 03/29/17 at 12:00; Status UNV Non-Formulary Medication 2 puff QID INH ; Start 03/29/17 at 13:00; Status UNV Non-Formulary Medication 70 mg WEEKLY PO ; Start 04/05/17 at 09:00; Status UNV Budesonide (Pulmicort) 0.5 mg RTBID NEB Last administered on 04/02/17 07:52; Start 03/29/17 at 20:00 Albuterol/ Ipratropium (Duoneb) 3 ml RTQID NEB Last administered on 03/30/17 08:13; Start 03/29/17 at 12:00; Stop 03/30/17 at 09:14; Status DC Verapamil HCl (Calan) 40 mg BID PO Last administered on 04/02/17 08:15; Start 03/29/17 at 10:30 Methylprednisolone Sodium Succinate (SOLU-Medrol 40MG VIAL) 40 mg Q8HRS IV Last administered on 03/31/17 06:12; Start 03/29/17 at 14:00; Stop 03/31/17 at 10:52; Status DC Albuterol/ Ipratropium (Duoneb) 3 ml RTQID PRN NEB sob; Start 03/29/17 at 10:30 ; Status UNV Ibuprofen (Motrin) 200 mg PRN Q6HRS PRN PO INFLAMMATION Last administered on 05:10; Start 03/29/17 at 10:30 Piperacillin Sod/ Tazobactam Sod (Zosyn Per Pharmacy) 1 each PRN DAILY PRN MC SEE COMMENTS; Start 03/29/17 at 12:00 Vancomycin HCl (Vanco Per Pharmacy) 1 each PRN DAILY PRN MC SEE COMMENTS Last administered on 04/01/17 10:01; Start 03/29/17 at 12:00 Vancomycin HCl 1.25 gm/Sodium Chloride 250 ml @ 166.667 mls/hr 1X ONCE IV Last administered on 03/29/17 14:55; Start 03/29/17 at 12:00; Stop 03/29/17 at 13:29; Status DC Piperacillin Sod/ Tazobactam Sod 4.5 gm/Sodium Chloride 100 ml @ 200 mls/hr Q6HRS IV Last administered on 04/02/17 06:15; Start 03/29/17 at 12:00 Vancomycin HCl 750 mg/Sodium Chloride 250 ml @ 250 mls/hr Q12H IV Last administered on 03/31/17 01:24; Start 03/30/17 at 01:00; Stop 03/31/17 at 02:04 ; Status DC Vancomycin HCl 1 each 1X ONCE MC Last administered on 03/31/17 00:30; Start 03/31/17 at 00:30; Stop 03/31/17 at 00:31; Status DC Atorvastatin Calcium (Lipitor) 20 mg QHS PO Last administered on 04/01/17 20: 22; Start 03/29/17 at 21:00 Potassium Chloride (Klor-Con) 40 meq 1X ONCE PO Last administered on 09:02; Start 03/30/17 at 08:00; Stop 03/30/17 at 08:04; Status DC Vancomycin HCl 1.25 gm/Sodium Chloride 250 ml @ 167 mls/hr Q12H IV Last administered on 04/02/17 09:02; Start 03/31/17 at 09:00 Vancomycin HCl 1 each 1X ONCE MC Last administered on 04/01/17 08:30; Start 04/01/17 at 08:30; Stop 04/01/17 at 08:31; Status DC Prednisone (Prednisone) 30 mg DAILY PO ; Start 04/03/17 at 09:00; Stop 04/06/17 at 08:59 Prednisone (Prednisone) 20 mg DAILY PO ; Start 04/06/17 at 09:00; Stop 04/09/17 at 08:59 Prednisone (Prednisone) 10 mg DAILY PO ; Start 04/09/17 at 09:00; Stop 04/12/17 at 08:59 Prednisone (Prednisone) 5 mg DAILY PO ; Start 04/12/17 at 09:00; Stop 04/15/17 at 08:59 Prednisone (Prednisone) 40 mg DAILY PO Last administered on 04/02/17 08:15; Start 04/01/17 at 09:00; Stop 04/03/17 at 08:59 Enoxaparin Sodium (Lovenox 40mg Syringe) 40 mg QHS SQ Last administered on 04/01 20:23; Start 03/31/17 at 21:00 Atorvastatin Calcium (Lipitor) 20 mg QHS PO ; Start 04/01/17 at 21:00; Status UNV Active Scripts Active Reported Ipratropium [place] 0.2 Mg/1 Ml Solution 1 Vial NEB QID Verapamil Er (Verapamil Hcl) 240 Mg Cap24h.pel 40 Mg PO BID Ventolin Hfa Inhaler (Albuterol Sulfate) 18 Gm Hfa.aer.ad 2 Puff INH QID Alprazolam 0.5 Mg Tablet 1 Tab PO TID Fosamax (Alendronate Sodium) 70 Mg Tablet 70 Mg PO WEEKLY Aspir 81 (Aspirin) 81 Mg Tablet.dr 81 Mg PO DAILY Combivent Respimat Inhal (Ipratropium/Albuterol Sulfate) 4 Gm Aer.w.adap 2 Inh IH QID Incruse Ellipta (Umeclidinium [place]) 62.5 Mcg Blst.w.dev 62.5 Mcg IH Advair 500-50 Diskus (Fluticasone/Salmeterol) 1 Each Disk.w.dev 1 Inh IH BID Vitals/I & O Vital Sign - Last 24 Hours 04/01/17 04/01/17 04/01/17 04/01/17 11:51 13:59 15:30 19:25 Temp 98.0 98.4 97.6 98.0 98.4 97.6 Pulse 89 75 71 Resp 22 18 B/P (MAP) 151/69 (96) 109/56 (73) 122/72 (89) Pulse Ox 95 97 99 O2 Delivery Nasal Cannula Nasal Cannula Nasal Cannula Room Air O2 Flow Rate 2.0 3.0 3.0 04/01/17 04/01/17 04/01/17 04/01/17 19:31 20:00 20:20 20:22 Pulse 75 B/P (MAP) 109/56 Pulse Ox 96 O2 Delivery Nasal Cannula Nasal Cannula Nasal Cannula O2 Flow Rate 3.0 3.0 04/01/17 04/01/17 04/02/17 04/02/17 21:27 23:35 03:13 07:50 Temp 98.1 97.8 98.1 98.1 97.8 98.1 Pulse 69 66 65 Resp 18 18 18 B/P (MAP) 125/66 (85) 131/69 (89) 175/80 (111) Pulse Ox 99 99 99 O2 Delivery Nasal Cannula Room Air Room Air Room Air O2 Flow Rate 3.0 04/02/17 04/02/17 04/02/17 04/02/17 07:52 08:00 08:15 08:16 Pulse 65 B/P (MAP) 175/80 Pulse Ox 99 O2 Delivery Nasal Cannula Nasal Cannula Nasal Cannula O2 Flow Rate 3.0 3.0 3.0 Intake and Output 04/01/17 04/01/17 04/02/17 15:00 23:00 07:00 Intake Total 800 ml 0 ml Output Total 750 ml Balance 50 ml [address], pneumonia better/effusion worse. Problem List Problems Medical Problems: (1) Community acquired pneumonia Status: Acute (2) COPD (chronic obstructive pulmonary disease) Status: Acute (3) Sepsis Status: Acute Assessment PO intake hampered by work of breathing/tachypnea. Plan of Care: Continue current Tx, SAMIR Fisher MD April 02, 2017 10:05
[2017-04-02] MEDS: VANCOMYCIN PER PHARMACY MC PRN (10:28)
--- NOTE | 2017-04-02 12:23 | PDOC ---
PULMONARY PROGRESS NOTES Subjective pt feels better s/p chest tube placement Vitals Vital Signs Date Time Temp Pulse Resp B/P (MAP) Pulse Ox O2 Delivery O2 Flow Rate FiO2 04/02/17 11:05 98.9 64 18 124/63 (83) 98 Room Air 98.9 04/02/17 10:41 3.0 ROS: No Nausea, No Chest Pain, No Abdominal Pain, No Increase Cough General: Alert, No acute distress Lungs: Wheezing, Other Cardiovascular: S1, S2 Abdomen: Soft, Non-tender Neuro Exam: Alert, Oriented Extremities: No Edema Skin: Warm Labs Laboratory Tests Test 04/01/17 08:20 White Blood Count 20.1 x10^3/uL (4.0-11.0) Red Blood Count 3.94 x10^6/uL (3.50-5.40) Hemoglobin 11.5 g/dL (12.0-15.5) Hematocrit 35.9 % (36.0-47.0) Mean Corpuscular Volume 91 fL (79-100) Mean Corpuscular Hemoglobin 29 pg (25-35) Mean Corpuscular Hemoglobin Concent 32 g/dL (31-37) Red Cell Distribution Width 14.2 % (11.5-14.5) Platelet Count 320 x10^3/uL (140-400) Neutrophils (%) (Auto) 86 % (31-73) Lymphocytes (%) (Auto) 8 % (24-48) Monocytes (%) (Auto) 5 % (0-9) Eosinophils (%) (Auto) 0 % (0-3) Basophils (%) (Auto) 0 % (0-3) Neutrophils # (Auto) 17.4 x10^3uL (1.8-7.7) Lymphocytes # (Auto) 1.6 x10^3/uL (1.0-4.8) Monocytes # (Auto) 1.1 x10^3/uL (0.0-1.1) Eosinophils # (Auto) 0.0 x10^3/uL (0.0-0.7) Basophils # (Auto) 0.0 x10^3/uL (0.0-0.2) Sodium Level 143 mmol/L (136-145) Potassium Level 4.1 mmol/L (3.5-5.1) Chloride Level 108 mmol/L (98-107) Carbon Dioxide Level 33 mmol/L (21-32) Anion Gap 2 (6-14) Blood Urea Nitrogen 13 mg/dL (7-20) Creatinine 0.6 mg/dL (0.6-1.0) Estimated GFR (Cockcroft-Gault) 102.3 Glucose Level 101 mg/dL (70-99) Calcium Level 8.3 mg/dL (8.5-10.1) Vancomycin Level Trough 12.0 mcg/mL (10.0-20.0) Vancomycin Last Dose Date 03/31/17 Vancomycin Last Dose Time 2100 Medications Active Scripts Medications Dose Route/Sig Max Daily Dose Days Date Category Ipratropium [employer] 0.2 Mg/1 Ml Solution 1 Vial NEB QID 03/29/17 Reported Verapamil Er (Verapamil Hcl) 240 Mg Cap24h.pel 40 Mg PO BID 03/29/17 Reported Ventolin Hfa Inhaler (Albuterol Sulfate) 18 Gm Hfa.aer.ad 2 Puff INH QID 03/29/17 Reported Alprazolam 0.5 Mg Tablet 1 Tab PO TID 03/29/17 Reported Fosamax (Alendronate Sodium) 70 Mg Tablet 70 Mg PO WEEKLY 03/29/17 Reported Aspir 81 (Aspirin) 81 Mg Tablet.dr 81 Mg PO DAILY 03/29/17 Reported Combivent Respimat Inhal (Ipratropium/Albuterol Sulfate) 4 Gm Aer.w.adap 2 Inh IH QID 03/29/17 Reported Incruse Ellipta (Umeclidinium [employer]) 62.5 Mcg Blst.w.dev 62.5 Mcg IH 03/29/17 Reported Advair 500-50 Diskus (Fluticasone/Salmeterol) 1 Each Disk.w.dev 1 Inh IH BID 03/29/17 Reported Impression . 1. Acute resp failure sec to pneumonia with possible complicated parapneumonic effusion 2. Chest pain, pleuritic type from extensive left lower lobe pneumonia. 3. 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 4. Abnormal CT chest with extensive pneumonia involving the left lower lobe and partially calcified density RLL due to previous talc, also mild patchy infiltrate in the right lower lobe consistent with pneumonia. she will need a follow up ct chest in 4-6 weeks to r/o any mass in RLL.There was tiny pleural effusion. NEW SCAN IMPRESSION: Area of consolidation, compatible with pneumonia, in the left lower lobe persists but appears improved. Left pleural effusion is slightly larger than on the previous exam. Again seen are known underlying emphysematous changes. Plan . thoracentesis with chest tube placement see orders spoke with Dr Burnette 1. BS antibiotic coverage to cover for anaerobic gram-negative and gram- positive organisms due to the severity of pneumonia. 2. so far culture is negative 3. see CT report 4. Repeat CT in 4-6 weekks 5. Taper steroids. 6. Bronchodilators. 7. Continue present oxygen. MOHSEN MANCINI MD April 02, 2017 12:23
--- NOTE | 2017-04-02 13:22 | PDOC ---
PROGRESS NOTES Chief Complaint Chief Complaint CC: SOB 1. Acute on chronic respiratory failure present on admission: On supplemental oxygen, Echo NORMAL EF 2. Worsening pneumonia.: On IV Levaquin, vancomycin, Zosyn, follow blood cx, 3. Pleuritic chest pain due to Pneumonia 4. Chronic obstructive pulmonary disease, chronic with emphysema. : iv solumedrol with periodic nebulizations, 5. Anxiety.: prn Ativan 6. Hypokalemia : Replaced 7. HTN: stable, continue current dose , prn hydralazine 8. Hyperlipidemia: on Statin. 9. bl leg edema plan; fu with pulm cont iv abx, add mucinex on NC 3L, home o2 2l add lasix 40mg po daily from 04/02 LTAC eval PTOT dvt ppx History of Present Illness History of Present Illness sob with activity no fever no chills weak in appearance. low appetite Vitals Vitals Vital Signs Date Time Temp Pulse Resp B/P (MAP) Pulse Ox O2 Delivery O2 Flow Rate FiO2 04/02/17 11:05 98.9 64 18 124/63 (83) 98 Room Air 98.9 04/02/17 10:41 3.0 Physical Exam General: Alert, Oriented X3, Cooperative, moderate distress Heart: Regular rate (SR), Normal S1, Normal S2, Other (distant heart sounds) Lungs: Other (bl decreased bs) Abdomen: Other (firm abdomen with tenderness upon palpation) Extremities: Other (bl leg 2+ edema) Skin: No breakdown, No significant lesion Review of Systems Review of Systems no fever, chills, chest pain Assessment and Plan Assessmemt and Plan Problems Medical Problems: (1) Community acquired pneumonia Status: Acute (2) COPD (chronic obstructive pulmonary disease) Status: Acute (3) Sepsis Status: Acute Problems: Comment Review of Relevant I have reviewed the following items henrry (where applicable) has been applied. Labs Laboratory Tests Test 04/01/17 08:20 White Blood Count 20.1 x10^3/uL (4.0-11.0) Red Blood Count 3.94 x10^6/uL (3.50-5.40) Hemoglobin 11.5 g/dL (12.0-15.5) Hematocrit 35.9 % (36.0-47.0) Mean Corpuscular Volume 91 fL (79-100) Mean Corpuscular Hemoglobin 29 pg (25-35) Mean Corpuscular Hemoglobin Concent 32 g/dL (31-37) Red Cell Distribution Width 14.2 % (11.5-14.5) Platelet Count 320 x10^3/uL (140-400) Neutrophils (%) (Auto) 86 % (31-73) Lymphocytes (%) (Auto) 8 % (24-48) Monocytes (%) (Auto) 5 % (0-9) Eosinophils (%) (Auto) 0 % (0-3) Basophils (%) (Auto) 0 % (0-3) Neutrophils # (Auto) 17.4 x10^3uL (1.8-7.7) Lymphocytes # (Auto) 1.6 x10^3/uL (1.0-4.8) Monocytes # (Auto) 1.1 x10^3/uL (0.0-1.1) Eosinophils # (Auto) 0.0 x10^3/uL (0.0-0.7) Basophils # (Auto) 0.0 x10^3/uL (0.0-0.2) Sodium Level 143 mmol/L (136-145) Potassium Level 4.1 mmol/L (3.5-5.1) Chloride Level 108 mmol/L (98-107) Carbon Dioxide Level 33 mmol/L (21-32) Anion Gap 2 (6-14) Blood Urea Nitrogen 13 mg/dL (7-20) Creatinine 0.6 mg/dL (0.6-1.0) Estimated GFR (Cockcroft-Gault) 102.3 Glucose Level 101 mg/dL (70-99) Calcium Level 8.3 mg/dL (8.5-10.1) Vancomycin Level Trough 12.0 mcg/mL (10.0-20.0) Vancomycin Last Dose Date 03/31/17 Vancomycin Last Dose Time 2100 Microbiology 03/29/17 Blood Culture - Preliminary, Resulted NO GROWTH AFTER 4 DAYS Medications Current Medications Sodium Chloride 1,000 ml @ 675 mls/hr Q1H29M IV Last administered on t 05:35; Start 03/29/17 at 03:45; Stop 03/29/17 at 05:44; Status DC Fentanyl Citrate (Fentanyl 2ml Vial) 50 mcg PRN Q15MIN PRN IV PAIN GREATER THAN 3/10 Last administered on 03/29/17 04:31; Start 03/29/17 at 03:45; Stop at 03:44; Status DC Ondansetron HCl (Zofran) 4 mg 1X ONCE IV Last administered on 03/29/17 03:56 ; Start 03/29/17 at 03:45; Stop 03/29/17 at 03:46; Status DC Ondansetron HCl (Zofran) 4 mg PRN Q8HRS PRN IV NAUSEA/VOMITING; Start 03/29/17 at 05:00; Stop 03/30/17 at 04:59; Status DC Fentanyl Citrate (Fentanyl 2ml Vial) 50 mcg PRN Q2HR PRN IV PAIN Last administered on 03/30/17 03:52; Start 03/29/17 at 05:00; Stop 03/30/17 at 04:59 ; Status DC Sodium Chloride 1,000 ml @ 125 mls/hr Q8H IV Last administered on 03/30/17 00 :24; Start 03/29/17 at 05:00; Stop 03/30/17 at 04:59; Status DC Acetaminophen (Tylenol) 650 mg PRN Q4HRS PRN PO FEVER; Start 03/29/17 at 04:45 ; Stop 03/30/17 at 04:44; Status DC Albuterol/ Ipratropium (Duoneb) 3 ml RTQID NEB Last administered on 03/29/17 08:19; Start 03/29/17 at 08:00; Stop 03/29/17 at 10:27; Status DC Levofloxacin/ Dextrose (Levaquin Per Pharmacy) 1 each PRN DAILY PRN MC SEE COMMENTS; Start 03/29/17 at 05:00 Levofloxacin/ Dextrose 100 ml @ 100 mls/hr Q24H IV Last administered on 05:07; Start 03/29/17 at 05:00 Iohexol (Omnipaque 240 Mg/ml) 50 ml 1X ONCE PO Last administered on 03/29/17 09:15; Start 03/29/17 at 09:15; Stop 03/29/17 at 09:16; Status DC Iohexol (Omnipaque 300 Mg/ml) 75 ml 1X ONCE IV Last administered on 03/29/17 09:15; Start 03/29/17 at 09:15; Stop 03/29/17 at 09:16; Status DC Info (Do NOT chart on this entry -- for MONITORING) 1 each PRN DAILY PRN MC SEE COMMENTS; Start 03/29/17 at 09:15; Stop 03/31/17 at 09:14; Status DC Metronidazole 100 ml @ 100 mls/hr Q8HRS IV ; Start 03/29/17 at 10:00; Stop at 14:32; Status DC Acetaminophen (Tylenol) 325 mg PRN Q6HRS PRN PO MILD PAIN / TEMP Last administered on 04/02/17 05:10; Start 03/29/17 at 09:15 Acetaminophen/ Hydrocodone Bitart (Lortab 5/325) 1 tab PRN Q6HRS PRN PO MODERATE TO SEVERE PAIN Last administered on 04/02/17 08:16; Start 03/29/17 at 09:15 Hydralazine HCl (Apresoline) 10 mg PRN Q4HRS PRN IVP ELEVATED BP, SEE COMMENTS ; Start 03/29/17 at 09:15 Ondansetron HCl (Zofran) 4 mg PRN Q8HRS PRN IV NAUSEA/VOMITING; Start 03/29/17 at 09:15 Albuterol Sulfate (Ventolin Neb Soln) 2.5 mg PRN Q4HRS PRN NEB SHORTNESS OF BREATH Last administered on 04/01/17 07:43; Start 03/29/17 at 09:15 Alprazolam (Xanax) 0.5 mg TID PO Last administered on 04/02/17 12:56; Start at 14:00 Aspirin (Ecotrin) 81 mg DAILYWBKFT PO Last administered on 04/02/17 08:15; Start 03/30/17 at 08:00 Ipratropium [place] (Atrovent) 0.2 mg RTQID NEB ; Start 03/29/17 at 12:00; Status UNV Non-Formulary Medication 2 puff QID INH ; Start 03/29/17 at 13:00; Status UNV Non-Formulary Medication 70 mg WEEKLY PO ; Start 04/05/17 at 09:00; Status UNV Budesonide (Pulmicort) 0.5 mg RTBID NEB Last administered on 04/02/17 07:52; Start 03/29/17 at 20:00 Albuterol/ Ipratropium (Duoneb) 3 ml RTQID NEB Last administered on 03/30/17 08:13; Start 03/29/17 at 12:00; Stop 03/30/17 at 09:14; Status DC Verapamil HCl ([place]) 40 mg BID PO Last administered on 04/02/17 08:15; Start 03/29/17 at 10:30 Methylprednisolone Sodium Succinate (SOLU-Medrol 40MG VIAL) 40 mg Q8HRS IV Last administered on 03/31/17 06:12; Start 03/29/17 at 14:00; Stop 03/31/17 at 10:52; Status DC Albuterol/ Ipratropium (Duoneb) 3 ml RTQID PRN NEB sob; Start 03/29/17 at 10:30 ; Status UNV Ibuprofen (Motrin) 200 mg PRN Q6HRS PRN PO INFLAMMATION Last administered on 05:10; Start 03/29/17 at 10:30 Piperacillin Sod/ Tazobactam Sod (Zosyn Per Pharmacy) 1 each PRN DAILY PRN MC SEE COMMENTS; Start 03/29/17 at 12:00 Vancomycin HCl (Vanco Per Pharmacy) 1 each PRN DAILY PRN MC SEE COMMENTS Last administered on 04/02/17 10:28; Start 03/29/17 at 12:00 Vancomycin HCl 1.25 gm/Sodium Chloride 250 ml @ 166.667 mls/hr 1X ONCE IV Last administered on 03/29/17 14:55; Start 03/29/17 at 12:00; Stop 03/29/17 at 13:29; Status DC Piperacillin Sod/ Tazobactam Sod 4.5 gm/Sodium Chloride 100 ml @ 200 mls/hr Q6HRS IV Last administered on 04/02/17 12:56; Start 03/29/17 at 12:00 Vancomycin HCl 750 mg/Sodium Chloride 250 ml @ 250 mls/hr Q12H IV Last administered on 03/31/17 01:24; Start 03/30/17 at 01:00; Stop 03/31/17 at 02:04 ; Status DC Vancomycin HCl 1 each 1X ONCE MC Last administered on 03/31/17 00:30; Start 03/31/17 at 00:30; Stop 03/31/17 at 00:31; Status DC Atorvastatin Calcium (Lipitor) 20 mg QHS PO Last administered on 04/01/17 20: 22; Start 03/29/17 at 21:00 Potassium Chloride (Klor-Con) 40 meq 1X ONCE PO Last administered on 09:02; Start 03/30/17 at 08:00; Stop 03/30/17 at 08:04; Status DC Vancomycin HCl 1.25 gm/Sodium Chloride 250 ml @ 167 mls/hr Q12H IV Last administered on 04/02/17 09:02; Start 03/31/17 at 09:00 Vancomycin HCl 1 each 1X ONCE MC Last administered on 04/01/17 08:30; Start 04/01/17 at 08:30; Stop 04/01/17 at 08:31; Status DC Prednisone (Prednisone) 30 mg DAILY PO ; Start 04/03/17 at 09:00; Stop 04/06/17 at 08:59 Prednisone (Prednisone) 20 mg DAILY PO ; Start 04/06/17 at 09:00; Stop 04/09/17 at 08:59 Prednisone (Prednisone) 10 mg DAILY PO ; Start 04/09/17 at 09:00; Stop 04/12/17 at 08:59 Prednisone (Prednisone) 5 mg DAILY PO ; Start 04/12/17 at 09:00; Stop 04/15/17 at 08:59 Prednisone (Prednisone) 40 mg DAILY PO Last administered on 04/02/17 08:15; Start 04/01/17 at 09:00; Stop 04/03/17 at 08:59 Enoxaparin Sodium (Lovenox 40mg Syringe) 40 mg QHS SQ Last administered on 04/01 20:23; Start 03/31/17 at 21:00 Atorvastatin Calcium (Lipitor) 20 mg QHS PO ; Start 04/01/17 at 21:00; Status UNV Guaifenesin (Mucinex) 600 mg BID PO Last administered on 04/02/17 12:56; Start 04/02/17 at 12:00 Active Scripts Active Reported Ipratropium [place] 0.2 Mg/1 Ml Solution 1 Vial NEB QID Verapamil Er (Verapamil Hcl) 240 Mg Cap24h.pel 40 Mg PO BID Ventolin Hfa Inhaler (Albuterol Sulfate) 18 Gm Hfa.aer.ad 2 Puff INH QID Alprazolam 0.5 Mg Tablet 1 Tab PO TID Fosamax (Alendronate Sodium) 70 Mg Tablet 70 Mg PO WEEKLY Aspir 81 (Aspirin) 81 Mg Tablet.dr 81 Mg PO DAILY Combivent Respimat Inhal (Ipratropium/Albuterol Sulfate) 4 Gm Aer.w.adap 2 Inh IH QID Incruse Ellipta (Umeclidinium [place]) 62.5 Mcg Blst.w.dev 62.5 Mcg IH Advair 500-50 Diskus (Fluticasone/Salmeterol) 1 Each Disk.w.dev 1 Inh IH BID Vitals/I & O Vital Sign - Last 24 Hours 04/01/17 04/01/17 04/01/17 04/01/17 13:59 15:30 19:25 19:31 Temp 98.4 97.6 98.4 97.6 Pulse 75 71 Resp 18 B/P (MAP) 109/56 (73) 122/72 (89) Pulse Ox 97 99 96 O2 Delivery Nasal Cannula Nasal Cannula Room Air Nasal Cannula O2 Flow Rate 3.0 3.0 3.0 04/01/17 04/01/17 04/01/17 04/01/17 20:00 20:20 20:22 23:35 Temp 98.1 98.1 Pulse 75 69 Resp 18 B/P (MAP) 109/56 125/66 (85) Pulse Ox 99 O2 Delivery Nasal Cannula Nasal Cannula Room Air O2 Flow Rate 3.0 04/02/17 04/02/17 04/02/17 04/02/17 03:13 07:50 07:52 08:00 Temp 97.8 98.1 97.8 98.1 Pulse 66 65 Resp 18 18 B/P (MAP) 131/69 (89) 175/80 (111) Pulse Ox 99 99 O2 Delivery Room Air Room Air Nasal Cannula Nasal Cannula O2 Flow Rate 3.0 3.0 04/02/17 04/02/17 04/02/17 04/02/17 08:15 08:16 10:41 11:05 Temp 98.9 98.9 Pulse 65 64 Resp 18 B/P (MAP) 175/80 124/63 (83) Pulse Ox 99 99 98 O2 Delivery Nasal Cannula Nasal Cannula Room Air O2 Flow Rate 3.0 3.0 Intake and Output 04/01/17 04/01/17 04/02/17 15:00 23:00 07:00 Intake Total 800 ml 0 ml Output Total 750 ml Balance 50 ml 0 ml RUI SCHULER MD April 02, 2017 13:22
[2017-04-02] MEDS ORDERED: LIDOCAINE 1% / SOD BICARB 8.4% 20 ML VIAL. IJ ONE ×3 (13:55→14:45)
[2017-04-02] MEDS ORDERED: MIDAZOLAM HCL/PF 2 MG/2 ML VIAL. ONE (14:16)
[2017-04-02] MEDS ORDERED: fentaNYL PF VIAL 100 MCG/2 ML VIAL ONE (14:16)
[2017-04-02] MEDS ORDERED: MIDAZOLAM HCL/PF 2 MG/2 ML VIAL. IV ONE (14:45)
[2017-04-02] MEDS ORDERED: fentaNYL PF VIAL 100 MCG/2 ML VIAL IV ONE (14:45)
--- NOTE | 2017-04-02 14:58 | PDOC ---
MODERATE SEDATION ASSESSMENT RISKS/ALTERNATIVES Risks/Alternatives Risks and alternatives of this type of sedation and procedure discussed with: RISK/ALTERNATIVES: Patient H & P ON CHART H & P H & P on chart and reviewed for co-morbid conditions and appropriate labs. H&P ON CHART: Yes STATUS PREG STATUS ASSESSED: N/A MEDS/ALLERGIES REVIEWED Meds/Allergies Reviewed Medications and Allergies including time and route of recently administered narcotics and sedatives. MEDS/ALLERGIES REVIEWED: Yes ASA RATING ASA RATING: II AIRWAY ASSESSMENT Airway Assessment Airway patency, oral function limitations, presence of caps, crowns, dentures, partials, and ability to extend neck assessed. AIRWAY ASSESSMENT: Yes MALLAMPATI SCORE MALLAMPATI SCORE: II PRE-SEDATION ASSESSMENT PRE-SEDATION ASSESSMENT: Yes DEQUAN FRANKLIN MD April 02, 2017 14:58
--- NOTE | 2017-04-02 15:02 | PDOC ---
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 Post-Procedure Diagnosis Post-Procedure Diagnosis Same Procedure Performed Procedure Performed CT guided left chest tube insertion. Type of Anesthesia Type of Anesthesia Local + Mod sedation Estimated Blood Loss EBL: Trace Specimens Specimans 100 cc yellow-hazy left pleural fluid removed----to lab per routine protocol Drain/Tubes Drains/Tubes 12F locking pigtail left chest tube in place---to PleurEvac. Condition of Patient Condition of Patient Stable. No apparent complication. Disposition Disposition From IR/CT [facility] for recovery. Chest tube to wall suction at -20 cm H2O. Chest tube management per Pulmonary. Full report to follow. DEQUAN FRANKLIN MD April 02, 2017 15:02
--- NOTE | 2017-04-02 15:21 | RAD ---
CT-guided left chest tube insertion Indication: 61-year-old female smoker with COPD, with left lower lobe pneumonia, with pleuritic chest pain, and with a small complicated left pleural effusion, which may represent empyema. Image guided chest tube insertion has been requested by pulmonary. Anesthesia: 19 minutes moderate sedation was provided utilizing a total of 2 mg Versed and 100 mcg fentanyl, IV. The patient was appropriately monitored by a qualified independent observer throughout the time of moderate sedation. Procedure: Informed consent was obtained from the patient. He she placed supine on the CT scanner. Preliminary noncontrast CT images confirmed the presence of left lower lobe pneumonia with a small left pleural effusion, with some atypical loculation. A skin site suitable for CT-guided chest tube insertion was selected and marked along lateral aspect of lower left hemithorax. That area was prepped and draped in the usual sterile fashion. Moderate sedation was provided with IV Versed and fentanyl. Using aseptic technique, local anesthesia, and CT guidance, a micropuncture needle was successfully introduced into low left lateral pleural space. The micropuncture needle was exchanged over a microguidewire for a micropuncture sheath, which, in turn, was removed over a 0.035 inch guidewire. The percutaneous tract was dilated and a 12 Indian locking pigtail chest tube was advanced posteriorly toward left posterior costophrenic angle. Approximately 100 cc of yellow-hazy left pleural fluid was then removed, and was submitted to the clinical laboratory for routine evaluation per protocol. Completion CT images documented satisfactory position of the left chest tube, with interval development of a small anteriorly located pneumothorax. The 12 Indian pigtail was then connected to Pleur-evac, and was secured at the skin exit site utilizing suture and sterile dressing. Patient tolerated the procedure well. Impression: Successful CT-guided insertion of a 12 Indian locking pigtail left chest tube, as described. PQRS compliance statement: One or more of the following individualized dose reduction techniques was utilized for this CT procedure: 1. Automated exposure control. 2. Adjustment of MA and/or KV according to patient size. 3. Iterative reconstruction technique.
[2017-04-02] MEDS: FUROSEMIDE 40 MG TABLET. PO SCH (15:24)
[2017-04-02] MEDS ORDERED: MORPHINE SULFATE 4 MG/ML DISP.SYRIN. IV PRN (20:15)
[2017-04-02] MEDS: ENOXAPARIN 40 MG/0.4 ML SYRINGE. SQ SCH (20:29)
[2017-04-02] MEDS: ATORVASTATIN CALCIUM 20 MG TABLET PO SCH (20:29)
[2017-04-02] MEDS: MORPHINE SULFATE 2 MG/ML DISP.SYRIN. IV PRN (20:31)
[2017-04-03] MEDS: MORPHINE SULFATE 2 MG/ML DISP.SYRIN. IV PRN ×3 (01:53→08:22)
[2017-04-03 03:25] VITALS: BP 164/102
[2017-04-03 04:08] VITALS: BP 170/102
[2017-04-03] MEDS: HYDROcodone/APAP 5/325MG 1 TAB TABLET PO PRN ×2 (04:59→16:01)
[2017-04-03] MEDS: PIPERACILLIN/TAZOBACTAM 4.5 GM in IV NORMAL SALINE 100ML 100 ML IV SCH ×2 (06:05→12:13)
[2017-04-03 06:48] LABS: BASO % 0 % (0-3); EOS % 1 % (0-3); HEMATOCRIT 36.5 % (36.0-47.0); HEMOGLOBIN 11.8 g/dL (12.0-15.5); LYMPH # 1.6 x10^3/uL (1.0-4.8); LYMPH % 16 % (24-48); MEAN CORPUSCULAR HEMOGLOBIN 29 pg (25-35); MEAN CORPUSCULAR HGB CONC 32 g/dL (31-37); MEAN CORPUSCULAR VOLUME 90 fL (79-100); MONO % 12 % (0-9); NEUT % 70 % (31-73); PLATELET COUNT 293 x10^3/uL (140-400); RED BLOOD COUNT 4.06 x10^6/uL (3.50-5.40); RED CELL DISTRIBUTION WIDTH 13.9 % (11.5-14.5); WHITE BLOOD COUNT 9.9 x10^3/uL (4.0-11.0)
[2017-04-03] MEDS: BUDESONIDE 0.5 MG/2 ML NEBU. NEB SCH (07:07)
[2017-04-03 07:08] LABS: CALCIUM 8.4 mg/dL (8.5-10.1); CREATININE 0.7 mg/dL (0.6-1.0); GFR 85.6; POTASSIUM 3.9 mmol/L (3.5-5.1)
[2017-04-03 07:16] VITALS: BP 160/103
[2017-04-03] MEDS: FUROSEMIDE 40 MG TABLET. PO SCH (08:21)
[2017-04-03] MEDS: ASPIRIN ENTERIC COATED 81 MG TABLET.DR. PO SCH (08:21)
[2017-04-03] MEDS: VANCOMYCIN 1.25 GM in IV NORMAL SALINE 250ML 250 ML IV SCH (08:21)
[2017-04-03] MEDS: ALPRAZolam 0.5 MG TABLET PO SCH ×2 (08:22→13:58)
[2017-04-03] MEDS: VERAPAMIL 40 MG TABLET. PO SCH (08:22)
[2017-04-03] MEDS ORDERED: predniSONE 10 MG TABLET PO SCH (09:00)
--- NOTE | 2017-04-03 09:12 | PDOC ---
G I PROGRESS NOTE Subjective Still difficulty eating due to dyspnea. No abdominal complaints otherwise. Physical Exam Lungs with diminished sounds. RRR Abdomen soft, not tender nor distended. Review of Relevant I have reviewed the following items henrry (where applicable) has been applied. Labs Laboratory Tests Test 04/02/17 14:45 04/03/17 06:23 04/03/17 06:32 Body Fluid pH 7.3 Sodium Level 144 mmol/L (136-145) Potassium Level 3.9 mmol/L (3.5-5.1) Chloride Level 102 mmol/L (98-107) Carbon Dioxide Level 38 mmol/L (21-32) Anion Gap 4 (6-14) Blood Urea Nitrogen 16 mg/dL (7-20) Creatinine 0.7 mg/dL (0.6-1.0) Estimated GFR (Cockcroft-Gault) 85.6 Glucose Level 89 mg/dL (70-99) Calcium Level 8.4 mg/dL (8.5-10.1) White Blood Count 9.9 x10^3/uL (4.0-11.0) Red Blood Count 4.06 x10^6/uL (3.50-5.40) Hemoglobin 11.8 g/dL (12.0-15.5) Hematocrit 36.5 % (36.0-47.0) Mean Corpuscular Volume 90 fL (79-100) Mean Corpuscular Hemoglobin 29 pg (25-35) Mean Corpuscular Hemoglobin Concent 32 g/dL (31-37) Red Cell Distribution Width 13.9 % (11.5-14.5) Platelet Count 293 x10^3/uL (140-400) Neutrophils (%) (Auto) 70 % (31-73) Lymphocytes (%) (Auto) 16 % (24-48) Monocytes (%) (Auto) 12 % (0-9) Eosinophils (%) (Auto) 1 % (0-3) Basophils (%) (Auto) 0 % (0-3) Neutrophils # (Auto) 7.0 x10^3uL (1.8-7.7) Lymphocytes # (Auto) 1.6 x10^3/uL (1.0-4.8) Monocytes # (Auto) 1.2 x10^3/uL (0.0-1.1) Eosinophils # (Auto) 0.1 x10^3/uL (0.0-0.7) Basophils # (Auto) 0.0 x10^3/uL (0.0-0.2) OX-Xqn-[id number]-Type Natriuretic Peptide 3815 pg/mL (0-124) Laboratory Tests Test 04/02/17 14:45 04/03/17 06:23 04/03/17 06:32 Body Fluid pH 7.3 Sodium Level 144 mmol/L (136-145) Potassium Level 3.9 mmol/L (3.5-5.1) Chloride Level 102 mmol/L (98-107) Carbon Dioxide Level 38 mmol/L (21-32) Anion Gap 4 (6-14) Blood Urea Nitrogen 16 mg/dL (7-20) Creatinine 0.7 mg/dL (0.6-1.0) Estimated GFR (Cockcroft-Gault) 85.6 Glucose Level 89 mg/dL (70-99) Calcium Level 8.4 mg/dL (8.5-10.1) White Blood Count 9.9 x10^3/uL (4.0-11.0) Red Blood Count 4.06 x10^6/uL (3.50-5.40) Hemoglobin 11.8 g/dL (12.0-15.5) Hematocrit 36.5 % (36.0-47.0) Mean Corpuscular Volume 90 fL (79-100) Mean Corpuscular Hemoglobin 29 pg (25-35) Mean Corpuscular Hemoglobin Concent 32 g/dL (31-37) Red Cell Distribution Width 13.9 % (11.5-14.5) Platelet Count 293 x10^3/uL (140-400) Neutrophils (%) (Auto) 70 % (31-73) Lymphocytes (%) (Auto) 16 % (24-48) Monocytes (%) (Auto) 12 % (0-9) Eosinophils (%) (Auto) 1 % (0-3) Basophils (%) (Auto) 0 % (0-3) Neutrophils # (Auto) 7.0 x10^3uL (1.8-7.7) Lymphocytes # (Auto) 1.6 x10^3/uL (1.0-4.8) Monocytes # (Auto) 1.2 x10^3/uL (0.0-1.1) Eosinophils # (Auto) 0.1 x10^3/uL (0.0-0.7) Basophils # (Auto) 0.0 x10^3/uL (0.0-0.2) SA-Wfv-[id number]-Type Natriuretic Peptide 3815 pg/mL (0-124) Microbiology 03/29/17 Blood Culture - Final, Complete NO GROWTH AFTER 5 DAYS 04/02/17 Gram Stain - Final, Complete Medications Current Medications Sodium Chloride 1,000 ml @ 675 mls/hr Q1H29M IV Last administered on 05:35; Start 03/29/17 at 03:45; Stop 03/29/17 at 05:44; Status DC Fentanyl Citrate (Fentanyl 2ml Vial) 50 mcg PRN Q15MIN PRN IV PAIN GREATER THAN 3/10 Last administered on 03/29/17 04:31; Start 03/29/17 at 03:45; Stop at 03:44; Status DC Ondansetron HCl (Zofran) 4 mg 1X ONCE IV Last administered on 03/29/17 03:56 ; Start 03/29/17 at 03:45; Stop 03/29/17 at 03:46; Status DC Ondansetron HCl (Zofran) 4 mg PRN Q8HRS PRN IV NAUSEA/VOMITING; Start 03/29/17 at 05:00; Stop 03/30/17 at 04:59; Status DC Fentanyl Citrate (Fentanyl 2ml Vial) 50 mcg PRN Q2HR PRN IV PAIN Last administered on 03/30/17 03:52; Start 03/29/17 at 05:00; Stop 03/30/17 at 04:59 ; Status DC Sodium Chloride 1,000 ml @ 125 mls/hr Q8H IV Last administered on 03/30/17 00 :24; Start 03/29/17 at 05:00; Stop 03/30/17 at 04:59; Status DC Acetaminophen (Tylenol) 650 mg PRN Q4HRS PRN PO FEVER; Start 03/29/17 at 04:45 ; Stop 03/30/17 at 04:44; Status DC Albuterol/ Ipratropium (Duoneb) 3 ml RTQID NEB Last administered on 03/29/17 08:19; Start 03/29/17 at 08:00; Stop 03/29/17 at 10:27; Status DC Levofloxacin/ Dextrose (Levaquin Per Pharmacy) 1 each PRN DAILY PRN MC SEE COMMENTS; Start 03/29/17 at 05:00 Levofloxacin/ Dextrose 100 ml @ 100 mls/hr Q24H IV Last administered on 04:59; Start 03/29/17 at 05:00 Iohexol (Omnipaque 240 Mg/ml) 50 ml 1X ONCE PO Last administered on 03/29/17 09:15; Start 03/29/17 at 09:15; Stop 03/29/17 at 09:16; Status DC Iohexol (Omnipaque 300 Mg/ml) 75 ml 1X ONCE IV Last administered on 03/29/17 09:15; Start 03/29/17 at 09:15; Stop 03/29/17 at 09:16; Status DC Info (Do NOT chart on this entry -- for MONITORING) 1 each PRN DAILY PRN MC SEE COMMENTS; Start 03/29/17 at 09:15; Stop 03/31/17 at 09:14; Status DC Metronidazole 100 ml @ 100 mls/hr Q8HRS IV ; Start 03/29/17 at 10:00; Stop at 14:32; Status DC Acetaminophen (Tylenol) 325 mg PRN Q6HRS PRN PO MILD PAIN / TEMP Last administered on 04/02/17 05:10; Start 03/29/17 at 09:15 Acetaminophen/ Hydrocodone Bitart (Lortab 5/325) 1 tab PRN Q6HRS PRN PO MODERATE TO SEVERE PAIN Last administered on 04/03/17 04:59; Start 03/29/17 at 09:15 Hydralazine HCl (Apresoline) 10 mg PRN Q4HRS PRN IVP ELEVATED BP, SEE COMMENTS ; Start 03/29/17 at 09:15 Ondansetron HCl (Zofran) 4 mg PRN Q8HRS PRN IV NAUSEA/VOMITING; Start 03/29/17 at 09:15 Albuterol Sulfate (Ventolin Neb Soln) 2.5 mg PRN Q4HRS PRN NEB SHORTNESS OF BREATH Last administered on 04/01/17 07:43; Start 03/29/17 at 09:15 Alprazolam (Xanax) 0.5 mg TID PO Last administered on 04/03/17 08:22; Start at 14:00 Aspirin (Ecotrin) 81 mg DAILYWBKFT PO Last administered on 04/03/17 08:21; Start 03/30/17 at 08:00 Ipratropium Jefferson (Atrovent) 0.2 mg RTQID NEB ; Start 03/29/17 at 12:00; Status UNV Non-Formulary Medication 2 puff QID INH ; Start 03/29/17 at 13:00; Status UNV Non-Formulary Medication 70 mg WEEKLY PO ; Start 04/05/17 at 09:00; Status UNV Budesonide (Pulmicort) 0.5 mg RTBID NEB Last administered on 04/03/17 07:07; Start 03/29/17 at 20:00 Albuterol/ Ipratropium (Duoneb) 3 ml RTQID NEB Last administered on 03/30/17 08:13; Start 03/29/17 at 12:00; Stop 03/30/17 at 09:14; Status DC Verapamil HCl (Calan) 40 mg BID PO Last administered on 04/03/17 08:22; Start 03/29/17 at 10:30 Methylprednisolone Sodium Succinate (SOLU-Medrol 40MG VIAL) 40 mg Q8HRS IV Last administered on 03/31/17 06:12; Start 03/29/17 at 14:00; Stop 03/31/17 at 10:52; Status DC Albuterol/ Ipratropium (Duoneb) 3 ml RTQID PRN NEB sob; Start 03/29/17 at 10:30 ; Status UNV Ibuprofen (Motrin) 200 mg PRN Q6HRS PRN PO INFLAMMATION Last administered on 05:10; Start 03/29/17 at 10:30 Piperacillin Sod/ Tazobactam Sod (Zosyn Per Pharmacy) 1 each PRN DAILY PRN MC SEE COMMENTS; Start 03/29/17 at 12:00 Vancomycin HCl (Vanco Per Pharmacy) 1 each PRN DAILY PRN MC SEE COMMENTS Last administered on 04/02/17 10:28; Start 03/29/17 at 12:00 Vancomycin HCl 1.25 gm/Sodium Chloride 250 ml @ 166.667 mls/hr 1X ONCE IV Last administered on 03/29/17 14:55; Start 03/29/17 at 12:00; Stop 03/29/17 at 13:29; Status DC Piperacillin Sod/ Tazobactam Sod 4.5 gm/Sodium Chloride 100 ml @ 200 mls/hr Q6HRS IV Last administered on 04/03/17 06:05; Start 03/29/17 at 12:00 Vancomycin HCl 750 mg/Sodium Chloride 250 ml @ 250 mls/hr Q12H IV Last administered on 03/31/17 01:24; Start 03/30/17 at 01:00; Stop 03/31/17 at 02:04 ; Status DC Vancomycin HCl 1 each 1X ONCE MC Last administered on 03/31/17 00:30; Start 03/31/17 at 00:30; Stop 03/31/17 at 00:31; Status DC Atorvastatin Calcium (Lipitor) 20 mg QHS PO Last administered on 04/02/17 20: 29; Start 03/29/17 at 21:00 Potassium Chloride (Klor-Con) 40 meq 1X ONCE PO Last administered on 09:02; Start 03/30/17 at 08:00; Stop 03/30/17 at 08:04; Status DC Vancomycin HCl 1.25 gm/Sodium Chloride 250 ml @ 167 mls/hr Q12H IV Last administered on 04/03/17 08:21; Start 03/31/17 at 09:00 Vancomycin HCl 1 each 1X ONCE MC Last administered on 04/01/17 08:30; Start 04/01/17 at 08:30; Stop 04/01/17 at 08:31; Status DC Prednisone (Prednisone) 30 mg DAILY PO Last administered on 04/03/17 08:21; Start 04/03/17 at 09:00; Stop 04/06/17 at 08:59 Prednisone (Prednisone) 20 mg DAILY PO ; Start 04/06/17 at 09:00; Stop 04/09/17 at 08:59 Prednisone (Prednisone) 10 mg DAILY PO ; Start 04/09/17 at 09:00; Stop 04/12/17 at 08:59 Prednisone (Prednisone) 5 mg DAILY PO ; Start 04/12/17 at 09:00; Stop 04/15/17 at 08:59 Prednisone (Prednisone) 40 mg DAILY PO Last administered on 04/02/17 08:15; Start 04/01/17 at 09:00; Stop 04/03/17 at 08:59; Status DC Enoxaparin Sodium (Lovenox 40mg Syringe) 40 mg QHS SQ Last administered on 04/02 20:29; Start 03/31/17 at 21:00 Atorvastatin Calcium (Lipitor) 20 mg QHS PO ; Start 04/01/17 at 21:00; Status UNV Guaifenesin (Mucinex) 600 mg BID PO Last administered on 04/03/17 08:21; Start 04/02/17 at 12:00 Furosemide (Lasix) 40 mg DAILY PO Last administered on 04/03/17 08:21; Start 04/02/17 at 14:00 Lidocaine/Sodium Bicarbonate (Buffered Lidocaine 1%) 20 ml STK-MED ONCE IJ ; Start 04/02/17 at 13:55; Stop 04/02/17 at 13:56; Status DC Lidocaine/Sodium Bicarbonate (Buffered Lidocaine 1%) 20 ml STK-MED ONCE IJ ; Start 04/02/17 at 14:06; Stop 04/02/17 at 14:07; Status DC Fentanyl Citrate (Fentanyl 2ml Vial) 100 mcg STK-MED ONCE .ROUTE ; Start at 14:16; Stop 04/02/17 at 14:17; Status DC Midazolam HCl (Versed) 2 mg STK-MED ONCE .ROUTE ; Start 04/02/17 at 14:16; Stop 04/02/17 at 14:17; Status DC Lidocaine/Sodium Bicarbonate (Buffered Lidocaine 1%) 20 ml 1X ONCE IJ Last administered on 04/02/17 14:41; Start 04/02/17 at 14:45; Stop 04/02/17 at 14:46 ; Status DC Midazolam HCl (Versed) 2 mg 1X ONCE IV Last administered on 04/02/17 14:42; Start 04/02/17 at 14:45; Stop 04/02/17 at 14:46; Status DC Fentanyl Citrate (Fentanyl 2ml Vial) 100 mcg 1X ONCE IV Last administered on 14:41; Start 04/02/17 at 14:45; Stop 04/02/17 at 14:46; Status DC Morphine Sulfate 2 mg PRN Q4HRS PRN IV PAIN Last administered on 04/03/17t 08: 22; Start 04/02/17 at 20:15 Morphine Sulfate 4 mg PRN Q4HRS PRN IV PAIN; Start 04/02/17 at 20:15 Active Scripts Active Reported Ipratropium Jefferson 0.2 Mg/1 Ml Solution 1 Vial NEB QID Verapamil Er (Verapamil Hcl) 240 Mg Cap24h.pel 40 Mg PO BID Ventolin Hfa Inhaler (Albuterol Sulfate) 18 Gm Hfa.aer.ad 2 Puff INH QID Alprazolam 0.5 Mg Tablet 1 Tab PO TID Fosamax (Alendronate Sodium) 70 Mg Tablet 70 Mg PO WEEKLY Aspir 81 (Aspirin) 81 Mg Tablet.dr 81 Mg PO DAILY Combivent Respimat Inhal (Ipratropium/Albuterol Sulfate) 4 Gm Aer.w.adap 2 Inh IH QID Incruse Ellipta (Umeclidinium Jefferson) 62.5 Mcg Blst.w.dev 62.5 Mcg IH Advair 500-50 Diskus (Fluticasone/Salmeterol) 1 Each Disk.w.dev 1 Inh IH BID Vitals/I & O Vital Sign - Last 24 Hours 04/02/17 04/02/17 04/02/17 04/02/17 11:05 14:29 14:33 14:37 Temp 98.9 98.9 Pulse 64 60 68 74 Resp 18 16 16 14 B/P (MAP) 124/63 (83) Pulse Ox 98 100 99 96 O2 Delivery Room Air Nasal Cannula Nasal Cannula Nasal Cannula O2 Flow Rate 2.0 2.0 2.0 04/02/17 04/02/17 04/02/17 04/02/17 14:41 14:43 14:47 15:00 Pulse 73 74 Resp 16 14 16 Pulse Ox 96 96 99 O2 Delivery Nasal Cannula Nasal Cannula Nasal Cannula Nasal Cannula O2 Flow Rate 3.0 2.0 2.0 3.0 04/02/17 04/02/17 04/02/17 04/02/17 17:39 19:55 20:00 20:29 Temp 98.0 98.0 Pulse 79 79 Resp 16 18 B/P (MAP) 165/91 (115) 165/91 Pulse Ox 95 98 O2 Delivery Nasal Cannula Room Air Nasal Cannula O2 Flow Rate 3.0 3.0 04/02/17 04/02/17 04/03/17 04/03/17 20:31 23:43 01:53 03:25 Temp 98.1 97.8 98.1 97.8 Pulse 85 72 Resp 16 18 20 18 B/P (MAP) 128/87 (101) 164/102 (122) Pulse Ox 97 99 O2 Delivery Nasal Cannula Room Air Nasal Cannula Room Air O2 Flow Rate 3.0 3.0 04/03/17 04/03/17 04/03/17 04/03/17 03:34 04:08 04:59 07:08 Resp 22 B/P (MAP) 170/102 (124) Pulse Ox 100 O2 Delivery Nasal Cannula Nasal Cannula Nasal Cannula O2 Flow Rate 3.0 3.0 3.0 04/03/17 04/03/17 04/03/17 04/03/17 07:16 08:20 08:22 08:22 Temp 97.9 97.9 Pulse 82 82 Resp 20 B/P (MAP) 160/103 (122) 160/103 Pulse Ox 97 O2 Delivery Nasal Cannula Nasal Cannula Nasal Cannula O2 Flow Rate 3.0 3.0 04/03/17 08:53 O2 Delivery Nasal Cannula Intake and Output 04/02/17 04/02/17 04/03/17 14:59 22:59 06:59 Intake Total 200 ml Output Total 900 ml Balance -900 ml 200 ml Problem List Problems Medical Problems: (1) Community acquired pneumonia Status: Acute (2) COPD (chronic obstructive pulmonary disease) Status: Acute (3) Sepsis Status: Acute Assessment Elevated work of breathing/tachypnea interfering with eating. Plan of Care: Continue current Tx, Mgmt Plan of Care Note Eating will hopefully improve with improvement in pulmonary status. SAMIR DUMONT MD April 03, 2017 09:12
[2017-04-03 11:00] VITALS: BP 106/72
[2017-04-03 11:00] LABS: BF CLARITY HAZY; BF COLOR YELLOW
--- NOTE | 2017-04-03 13:11 | PDOC3 ---
Discharge Summary [facility] Date of Admission: March 29, 2017 Discharge Date: April 03, 2017 Admitting Diagnosis 1. Acute on chronic respiratory failure present on admission: On supplemental oxygen, Echo NORMAL EF 2. Worsening pneumonia.: On IV Levaquin, vancomycin, Zosyn, follow blood cx, 3. Pleuritic chest pain due to Pneumonia 4. Chronic obstructive pulmonary disease, chronic with emphysema. : iv solumedrol with periodic nebulizations, 5. Anxiety.: prn Ativan 6. Hypokalemia : Replaced 7. HTN: stable, continue current dose , prn hydralazine 8. Hyperlipidemia: on Statin. 9. bl leg edema 10. left pleural effusion with PNA Problems: Final Diagnosis CONSULTS ir gi pulm Procedures chest tube Brief Hospital Course Ms. Wilson is a 61 old F, smoker, severe COPD, on HOME O2 2L, comes for sob, cough, and left chest pain. CXR, CT showed left side PNA, and pleural effusion, Pt has been on levaquin, zosyn, vancomycin iv, and then chest tube insertion on 04/02, indicating exudate. pt feels slight better today, 150cc overnight from chest tube, wbc normal. dc to LTAC to cont chest tube care, iv abx. dc time 40min General: Alert, Oriented X3, Cooperative, moderate distress Heart: Regular rate (SR), Normal S1, Normal S2, Other (distant heart sounds) Lungs: Other (bl decreased bs) Abdomen: Other (firm abdomen with tenderness upon palpation) Extremities: Other (bl leg 2+ edema) Skin: No breakdown, No significant lesion Problems: Disposition LTAC CONDITION AT DISCHARGE: Improved Diet regular Scheduled Albuterol Sulfate (Ventolin Hfa Inhaler), 2 PUFF INH QID, (Reported) Alendronate Sodium (Fosamax), 70 MG PO WEEKLY, (Reported) Alprazolam (Alprazolam), 1 TAB PO TID, (Reported) Aspirin (Aspir 81), 81 MG PO DAILY, (Reported) Fluticasone/Salmeterol (Advair 500-50 Diskus), 1 INH IH BID, (Reported) Ipratropium Hume (Ipratropium Hume), 1 VIAL NEB QID, (Reported) Ipratropium/Albuterol Sulfate (Combivent Respimat Inhal), 2 INH IH QID, ( Reported) Verapamil Hcl (Verapamil Er), 40 MG PO BID, (Reported) Miscellaneous Medications Umeclidinium Hume (Incruse Ellipta), 62.5 MCG IH, (Reported) Follow Up pulm in 4 weeks RUI SCHULER MD April 03, 2017 13:11
[2017-04-03 14:53] VITALS: BP 142/83
--- NOTE | 2017-04-03 16:23 | PATHOLOGY ---
CYTOPATHOLOGY REPORT CLINICAL HISTORY: Left pleural effusion SPECIMEN(S) RECEIVED: A.Pleural fluid, Left FINAL DIAGNOSIS: Left pleural fluid, ThinPrep and cell block: Atypical cells identified. - Focally atypical reactive mesothelial cells identified within a background of acute inflammatory cells. (JPM:csd; d/t: 04/03/2017) PATHOLOGIST: Ravinder Maria M.D. REPORT ELECTRONICALLY SIGNED BY: Ravinder Maria M.D. DATE/TIME: 04/03/2017 16:20 GROSS PATHOLOGY: Pleural fluid, Left: The specimen is submitted unfixed, labeled "Emma Wilson". Received by the Cytology Department is 38 mL of cloudy yellow fluid. One ThinPrep slide and a cell block were prepared. (mm 04.02.2017) DEMAND PLANNING ANALYST(S): KIANA Aviles(ASCP) INITIAL CPT CODE(S): A; 33106, 83782 Professional services performed by [facility] [place] [address] Technical services performed by [facility] at [address] [place] [address], [address], [place] [address]. PATIENT: EMMA WILSON /AGE: 11 1955 (Age: 61) SEX: F PATIENT #: [id number] ALT CASE #: SPECIMEN COLLECTION DATE: 04/02/2017 SPECIMEN RECEIVED DATE: 04/02/[address] [facility] [address] [place] [address], [address] [place] [address] PHONE: [phone] DIRECTOR: Gerardo Kay M.D. * * * END OF REPORT * * *
--- NOTE | 2017-04-03 17:08 | PDOC ---
PULMONARY PROGRESS NOTES Subjective BETTER TODAY LESS SOA AND PAIN Vitals Vital Signs Date Time Temp Pulse Resp B/P (MAP) Pulse Ox O2 Delivery O2 Flow Rate FiO2 04/03/17 16:01 Nasal Cannula 04/03/17 14:53 98.1 107 20 142/83 (102) 92 3.0 98.1 ROS: No Nausea, No Chest Pain, No Abdominal Pain, No Increase Cough General: Alert, No acute distress Lungs: Wheezing, Other Cardiovascular: S1, S2 Abdomen: Soft, Non-tender Neuro Exam: Alert, Oriented Extremities: No Edema Skin: Warm Labs Laboratory Tests Test 04/02/17 14:22 04/02/17 14:45 04/03/17 06:23 04/03/17 06:32 Body Fluid Source Pleural Body Fluid Color Yellow Body Fluid Clarity Hazy Body Fluid Nucleated Cells 5156 /cmm Body Fluid Mononuclear WBCs (%) 3 % Body Fluid Polymorphonuclear Cells 94 % Body Fluid Total RBCs Counted 1252 /cmm Body Fluid Other Cells (%) 3 % Body Fluid pH 7.3 Sodium Level 144 mmol/L (136-145) Potassium Level 3.9 mmol/L (3.5-5.1) Chloride Level 102 mmol/L (98-107) Carbon Dioxide Level 38 mmol/L (21-32) Anion Gap 4 (6-14) Blood Urea Nitrogen 16 mg/dL (7-20) Creatinine 0.7 mg/dL (0.6-1.0) Estimated GFR (Cockcroft-Gault) 85.6 Glucose Level 89 mg/dL (70-99) Calcium Level 8.4 mg/dL (8.5-10.1) White Blood Count 9.9 x10^3/uL (4.0-11.0) Red Blood Count 4.06 x10^6/uL (3.50-5.40) Hemoglobin 11.8 g/dL (12.0-15.5) Hematocrit 36.5 % (36.0-47.0) Mean Corpuscular Volume 90 fL (79-100) Mean Corpuscular Hemoglobin 29 pg (25-35) Mean Corpuscular Hemoglobin Concent 32 g/dL (31-37) Red Cell Distribution Width 13.9 % (11.5-14.5) Platelet Count 293 x10^3/uL (140-400) Neutrophils (%) (Auto) 70 % (31-73) Lymphocytes (%) (Auto) 16 % (24-48) Monocytes (%) (Auto) 12 % (0-9) Eosinophils (%) (Auto) 1 % (0-3) Basophils (%) (Auto) 0 % (0-3) Neutrophils # (Auto) 7.0 x10^3uL (1.8-7.7) Lymphocytes # (Auto) 1.6 x10^3/uL (1.0-4.8) Monocytes # (Auto) 1.2 x10^3/uL (0.0-1.1) Eosinophils # (Auto) 0.1 x10^3/uL (0.0-0.7) Basophils # (Auto) 0.0 x10^3/uL (0.0-0.2) ZK-Uap-U-Type Natriuretic Peptide 3815 pg/mL (0-124) Laboratory Tests Test 04/03/17 06:23 04/03/17 06:32 Sodium Level 144 mmol/L (136-145) Potassium Level 3.9 mmol/L (3.5-5.1) Chloride Level 102 mmol/L (98-107) Carbon Dioxide Level 38 mmol/L (21-32) Anion Gap 4 (6-14) Blood Urea Nitrogen 16 mg/dL (7-20) Creatinine 0.7 mg/dL (0.6-1.0) Estimated GFR (Cockcroft-Gault) 85.6 Glucose Level 89 mg/dL (70-99) Calcium Level 8.4 mg/dL (8.5-10.1) White Blood Count 9.9 x10^3/uL (4.0-11.0) Red Blood Count 4.06 x10^6/uL (3.50-5.40) Hemoglobin 11.8 g/dL (12.0-15.5) Hematocrit 36.5 % (36.0-47.0) Mean Corpuscular Volume 90 fL (79-100) Mean Corpuscular Hemoglobin 29 pg (25-35) Mean Corpuscular Hemoglobin Concent 32 g/dL (31-37) Red Cell Distribution Width 13.9 % (11.5-14.5) Platelet Count 293 x10^3/uL (140-400) Neutrophils (%) (Auto) 70 % (31-73) Lymphocytes (%) (Auto) 16 % (24-48) Monocytes (%) (Auto) 12 % (0-9) Eosinophils (%) (Auto) 1 % (0-3) Basophils (%) (Auto) 0 % (0-3) Neutrophils # (Auto) 7.0 x10^3uL (1.8-7.7) Lymphocytes # (Auto) 1.6 x10^3/uL (1.0-4.8) Monocytes # (Auto) 1.2 x10^3/uL (0.0-1.1) Eosinophils # (Auto) 0.1 x10^3/uL (0.0-0.7) Basophils # (Auto) 0.0 x10^3/uL (0.0-0.2) ER-Anw-Q-Type Natriuretic Peptide 3815 pg/mL (0-124) Medications Active Scripts Medications Dose Route/Sig Max Daily Dose Days Date Category Ipratropium Vincent 0.2 Mg/1 Ml Solution 1 Vial NEB QID 03/29/17 Reported Verapamil Er (Verapamil Hcl) 240 Mg Cap24h.pel 40 Mg PO BID 03/29/17 Reported Ventolin Hfa Inhaler (Albuterol Sulfate) 18 Gm Hfa.aer.ad 2 Puff INH QID 03/29/17 Reported Alprazolam 0.5 Mg Tablet 1 Tab PO TID 03/29/17 Reported Fosamax (Alendronate Sodium) 70 Mg Tablet 70 Mg PO WEEKLY 03/29/17 Reported Aspir 81 (Aspirin) 81 Mg Tablet.dr 81 Mg PO DAILY 03/29/17 Reported Combivent Respimat Inhal (Ipratropium/Albuterol Sulfate) 4 Gm Aer.w.adap 2 Inh IH QID 03/29/17 Reported Incruse Ellipta (Umeclidinium Vincent) 62.5 Mcg Blst.w.dev 62.5 Mcg IH 03/29/17 Reported Advair 500-50 Diskus (Fluticasone/Salmeterol) 1 Each Disk.w.dev 1 Inh IH BID 03/29/17 Reported Impression . 1. Acute resp failure sec to pneumonia with possible complicated parapneumonic effusion S/P CHEST TUBE PLACEMENT ON 04/02 2. Chest pain, pleuritic type from extensive left lower lobe pneumonia. 3. 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 4. Abnormal CT chest with extensive pneumonia involving the left lower lobe and partially calcified density RLL due to previous talc, also mild patchy infiltrate in the right lower lobe consistent with pneumonia. she will need a follow up ct chest in 4-6 weeks to r/o any mass in RLL.There was tiny pleural effusion. NEW SCAN IMPRESSION: Area of consolidation, compatible with pneumonia, in the left lower lobe persists but appears improved. Left pleural effusion is slightly larger than on the previous exam. Again seen are known underlying emphysematous changes. Plan . Minimal drainage so far cultures are negative transfer to [facility]\ Follow up wtih me 4 weeks after d/c from [facility], [place] 1. BS antibiotic coverage to cover for anaerobic gram-negative and gram- positive organisms due to the severity of pneumonia. 2. so far culture is negative 3. see CT report 4. Repeat CT in 4-6 weekks 5. Taper steroids. 6. Bronchodilators. 7. Continue present oxygen. MOHSEN MANCINI MD April 03, 2017 17:08
[2017-04-05] MEDS ORDERED: NON FORMULARY ITEM (Alendronate Sodium (Fosamax) 70 MG) PO SCH (09:00)
[2017-04-06] MEDS ORDERED: predniSONE 20 MG TABLET PO SCH (09:00)
[2017-04-09] MEDS ORDERED: predniSONE 10 MG TABLET PO SCH (09:00)
[2017-04-12] MEDS ORDERED: predniSONE 5 MG TABLET PO SCH (09:00)
== END 2017-04-03 19:00 | DRG 177 ==
LOC: ER 03:11 → 2 SOUTH 04:06 → 6 SOUTH 04-01 18:02
PROVIDERS: ADMIT Internal Medicine; ATTEND Internal Medicine
PROC: 0W9B30Z Drainage of Left Pleural Cavity with Drainage Device, Percutaneous Approach (ICD-10-PCS; principal; 2017-04-02)
DX: J15.6 Pneumonia due to other Gram-negative bacteria (principal); J96.20 Acute and chronic respiratory failure, unspecified whether with hypoxia or hypercapnia; J44.0 Chronic obstructive pulmonary disease with (acute) lower respiratory infection; J90 Pleural effusion, not elsewhere classified; J44.1 Chronic obstructive pulmonary disease with (acute) exacerbation; E78.5 Hyperlipidemia, unspecified; E87.6 Hypokalemia; F41.9 Anxiety disorder, unspecified; G47.33 Obstructive sleep apnea (adult) (pediatric); I10 Essential (primary) hypertension; M81.0 Age-related osteoporosis without current pathological fracture; R63.3 Feeding difficulties; M19.90 Unspecified osteoarthritis, unspecified site; Z79.82 Long term (current) use of aspirin; Z82.49 Family history of ischemic heart disease and other diseases of the circulatory system; Z87.891 Personal history of nicotine dependence; Z99.81 Dependence on supplemental oxygen
CPT/HCPCS: 32557; 36415; 71010; 71250; 71260; 74160; 80048; 80053; 80061; 80202; 81001; 82553; 83605; 83615; 83690; 83880; 83986; 84157; 84484; 85007; 85027; 85379; 87040; 87071; 87075; 87116; 87205; 88112; 88305; 89050; 93005; 93306; 94250; 94640; 94760; 96374; 96375; 96376; A4215; C1729; C1892; J1650; J1956; J2250; J2270; J2405; J2543; J2920; J3010; J3370; J7030; J7050; J7512; J7620; Q9966; Q9967; 99285-25